=== PATIENT | male | born 1945 | race African-American/Black ===

== ENCOUNTER 2018-12-04 23:28 | Inpatient (IN) | payer MEDICARE ==
[~2018-12-04] VITALS: Ht 182.9 cm; Wt 44.5 kg
[2018-12-05 00:11] LABS: BASO # 0.1 x10^3/uL (0.0-0.2); BASO % 1 % (0-3); EOS # 0.1 x10^3/uL (0.0-0.7); EOS % 1 % (0-3); HEMATOCRIT 29.8 % (39.0-53.0); HEMOGLOBIN 9.3 g/dL (13.0-17.5); LYMPH # 1.1 x10^3/uL (1.0-4.8); LYMPH % 14 % (24-48); MEAN CORPUSCULAR HEMOGLOBIN 23 pg (25-35); MEAN CORPUSCULAR HGB CONC 31 g/dL (31-37); MEAN CORPUSCULAR VOLUME 73 fL (79-100); MONO # 0.7 x10^3/uL (0.0-1.1); MONO % 8 % (0-9); NEUT # 6.2 x10^3/uL (1.8-7.7); NEUT % 76 % (31-73); PLATELET COUNT 645 x10^3/uL (140-400); RED BLOOD COUNT 4.07 x10^6/uL (4.30-5.70); RED CELL DISTRIBUTION WIDTH 16.2 % (11.5-14.5); WHITE BLOOD COUNT 8.2 x10^3/uL (4.0-11.0)
[2018-12-05 00:17] LABS: BLOOD UREA NITROGEN 20 mg/dL (8-26); BUN/CREATININE RATIO 20 (6-20); CALCIUM 9.5 mg/dL (8.5-10.1); CARBON DIOXIDE 38 mmol/L (21-32); GFR 89.1; GLUCOSE 97 mg/dL (70-99); POTASSIUM 3.8 mmol/L (3.5-5.1)
[2018-12-05 00:23] LABS: ALBUMIN 2.1 g/dL (3.4-5.0); ALBUMIN/GLOBULIN RATIO 0.4 (1.0-1.7); ALK PHOS 83 U/L (46-116); ALT (SGPT) 20 U/L (16-63); AST (SGOT) 17 U/L (15-37); TOTAL BILIRUBIN 0.1 mg/dL (0.2-1.0); TOTAL PROTEIN 6.9 g/dL (6.4-8.2)
[2018-12-05 00:25] LABS: CHLORIDE 99 mmol/L (98-107); SODIUM 135 mmol/L (136-145)
[2018-12-05 00:37] LABS: PLT ESTIMATE INCREASED (ADEQUATE)
[2018-12-05 00:40] LABS: ANISOCYTOSIS SLIGHT; HYPOCHROMIA MOD; MICROCYTOSIS SLIGHT; POIKILOCYTOSIS SLIGHT; TEAR DROP CELLS OCC
[2018-12-05 00:41] LABS: SCHISTOCYTES OCC; TARGET CELLS OCC
[2018-12-05 00:42] LABS: BILIRUBIN,URINE NEGATIVE (NEG); CLARITY,URINE CLOUDY; COLOR,URINE YELLOW; NITRITE,URINE NEGATIVE (NEG); PROTEIN,URINE 100 mg/dL (NEG-TRACE); UROBILINOGEN,URINE 0.2 mg/dL (0.2 mg/dL)
[2018-12-05 00:42] LABS: OVALOCYTES FEW
--- NOTE | 2018-12-05 00:49 | RAD ---
EXAM: CT HEAD WITHOUT CONTRAST. HISTORY: Altered mental status. TECHNIQUE: Computed tomography of the head was performed without intravenous contrast. COMPARISON: None. FINDINGS: There is no intracranial hemorrhage. Maciel-white differentiation is preserved. The ventricles are normal in size and position. The visualized paranasal sinuses appear clear. There are changes of bilateral cataract surgery. The temporal bones are unremarkable. The calvarium reveals no suspicious lesions. IMPRESSION: 1. No acute intracranial findings. *One or more of the following individualized dose reduction techniques were utilized for this examination: 1. Automated exposure control. 2. Adjustment of the mA and/or kV according to patient size. 3. Use of iterative reconstruction technique. Electronically signed by: Rogelio Robledo MD (12/05/2018 12:46 AM) [facility]
--- NOTE | 2018-12-05 00:53 | PHYS DOC ---
Past Medical History Past Medical History: Schizophrenia Additional Past Medical Histor: PTSD, BORDERLINE PERSONALITY, ANEMIA, ACUTE RESP FAILURE, Past Surgical History: No Surgical History Alcohol Use: None Drug Use: None Adult General Chief Complaint Chief Complaint: ALTERED MENTAL STATUS HPI HPI 73-year-old male presents to the emergency department from nursing facility with complaints of altered mental status. As recently admitted to this facility approximately 2 days ago. Nursing states that approximately around 10 PM patient had decreased O2, unresponsive. EMS was called. Patient generally history of schizophrenia, PTSD, hypertension, hyponatremia. He is well has a superpubic catheter placement and a left traumatic lower extremity amputation patient will respond to painful stimuli. He is unable provide any information regarding his care or answer any questions regarding reviews of systems. All other ROS negative unless documented in HPI Review of Systems Review of Systems See Above Current Medications Current Medications Current Medications Medications (Trade) Dose Ordered Sig/Paige Start Time Stop Time Status Last Admin Dose Admin Ceftriaxone Sodium (Rocephin) 1 gm 1X ONCE 12/05/18 01:30 12/05/18 01:31 DC 12/05/18 01:30 1 GM Allergies Allergies Allergies Coded Allergies Type Severity Reaction Last Updated Verified chlorpromazine Allergy Unknown 12/05/18 Yes haloperidol Allergy Unknown 12/05/18 Yes trazodone Allergy Unknown 12/05/18 Yes Physical Exam Physical Exam See Above Constitutional: AMS, will arouse to painful stimulie HENT: Normocephalic, atraumatic, bilateral external ears normal, oropharynx moist, no oral exudates, nose normal. [] Eyes: EOMI, conjunctiva normal, no discharge. [] Cardiovascular:Heart rate regular rhythm, no murmur [] Lungs & Thorax: Bilateral breath sounds clear to auscultation [] Abdomen: Bowel sounds normal, soft, no tenderness, no masses, no pulsatile masses. [] Skin: Warm, dry, no erythema, no rash. [] Back: No tenderness, no CVA tenderness. [] Extremities: left traumatic amputation, right lower ext with edema Neurologic: Alert and oriented X 3, no focal deficits noted. [] Psychologic: history of schizophrenia Current Patient Data Vital Signs Vital Signs Date Time Temp Pulse Resp B/P (MAP) Pulse Ox O2 Delivery O2 Flow Rate FiO2 12/05/18 01:29 75 12/05/18 01:14 100 12/04/18 23:28 96.1 14 104/68 (80) BiPAP/CPAP 4.0 96.1 Lab Values Laboratory Tests Test 12/05/18 00:00 12/05/18 00:35 12/05/18 00:40 White Blood Count 8.2 x10^3/uL (4.0-11.0) Red Blood Count 4.07 x10^6/uL (4.30-5.70) L Hemoglobin 9.3 g/dL (13.0-17.5) L Hematocrit 29.8 % (39.0-53.0) L Mean Corpuscular Volume 73 fL (79-100) L Mean Corpuscular Hemoglobin 23 pg (25-35) L Mean Corpuscular Hemoglobin Concent 31 g/dL (31-37) Red Cell Distribution Width 16.2 % (11.5-14.5) H Platelet Count 645 x10^3/uL (140-400) H Neutrophils (%) (Auto) 76 % (31-73) H Lymphocytes (%) (Auto) 14 % (24-48) L Monocytes (%) (Auto) 8 % (0-9) Eosinophils (%) (Auto) 1 % (0-3) Basophils (%) (Auto) 1 % (0-3) Neutrophils # (Auto) 6.2 x10^3/uL (1.8-7.7) Lymphocytes # (Auto) 1.1 x10^3/uL (1.0-4.8) Monocytes # (Auto) 0.7 x10^3/uL (0.0-1.1) Eosinophils # (Auto) 0.1 x10^3/uL (0.0-0.7) Basophils # (Auto) 0.1 x10^3/uL (0.0-0.2) Platelet Estimate Increased (ADEQUATE) Hypochromasia Mod Poikilocytosis Slight Anisocytosis Slight Microcytosis Slight Target Cells Occ Tear Drop Cells Occ Ovalocytes Few Schistocytes Occ Sodium Level 135 mmol/L (136-145) L Potassium Level 3.8 mmol/L (3.5-5.1) Chloride Level 99 mmol/L (98-107) Carbon Dioxide Level 38 mmol/L (21-32) H Anion Gap (6-14) Blood Urea Nitrogen 20 mg/dL (8-26) Creatinine 1.0 mg/dL (0.7-1.3) Estimated GFR (Cockcroft-Gault) 89.1 BUN/Creatinine Ratio 20 (6-20) Glucose Level 97 mg/dL (70-99) Lactic Acid Level 0.4 mmol/L (0.4-2.0) Calcium Level 9.5 mg/dL (8.5-10.1) Total Bilirubin 0.1 mg/dL (0.2-1.0) L Aspartate Amino Transferase (AST) 17 U/L (15-37) Alanine Aminotransferase (ALT) 20 U/L (16-63) Alkaline Phosphatase 83 U/L (46-116) WP-Fhq-R-Type Natriuretic Peptide 3113 pg/mL (0-124) H Total Protein 6.9 g/dL (6.4-8.2) Albumin 2.1 g/dL (3.4-5.0) L Albumin/Globulin Ratio 0.4 (1.0-1.7) L Urine Collection Type Suprapubic Urine Color Yellow Urine Clarity Cloudy Urine pH 6.0 Urine Specific [place] 1.020 Urine Protein 100 mg/dL (NEG-TRACE) Urine Glucose (UA) Negative mg/dL (NEG) Urine Ketones (Stick) Negative mg/dL (NEG) Urine Blood Moderate (NEG) Urine Nitrite Negative (NEG) Urine Bilirubin Negative (NEG) Urine Urobilinogen Dipstick 0.2 mg/dL (0.2 mg/dL) Urine Leukocyte Esterase Moderate (NEG) Urine RBC 11-20 /HPF (0-2) Urine WBC 20-40 /HPF (0-4) Urine Squamous Epithelial Cells None /LPF Urine Amorphous Sediment Present /HPF Urine Bacteria Few /HPF (0-FEW) Urine Hyaline Casts Few /HPF Urine Granular Casts Few /HPF Urine Mucus Marked /LPF O2 Saturation 99 % (92-99) Arterial Blood pH 7.24 (7.35-7.45) L Arterial Blood pCO2 at Patient Temp 92 mmHg (35-46) *H Arterial Blood pO2 at Patient Temp 273 mmHg (65-108) H Arterial Blood HCO3 39 mmol/L (21-28) H Arterial Blood Base Excess 9 mmol/L (-3-3) H Laboratory Tests 12/05/18 00:00 Laboratory Tests 12/05/18 00:00 EKG EKG [] Radiology/Procedures Radiology/Procedures [facility] [address] [place] [address] IMAGING REPORT Signed PATIENT: JOSE MOODY ACCOUNT: [id number] : 1945 LOCATION: ER AGE: 73 SEX: M EXAM STATUS: REG ER ORD. PHYSICIAN: JOVANNY RIVERA MD REASON: ams PROCEDURE: CT HEAD WO CONTRAST EXAM: CT HEAD WITHOUT CONTRAST. HISTORY: Altered mental status. TECHNIQUE: Computed tomography of the head was performed without intravenous contrast. COMPARISON: None. FINDINGS: There is no intracranial hemorrhage. Maciel-white differentiation is preserved. The ventricles are normal in size and position. The visualized paranasal sinuses appear clear. There are changes of bilateral cataract surgery. The temporal bones are unremarkable. The calvarium reveals no suspicious lesions. IMPRESSION: 1. No acute intracranial findings. *One or more of the following individualized dose reduction techniques were utilized for this examination: 1. Automated exposure control. 2. Adjustment of the mA and/or kV according to patient size. 3. Use of iterative reconstruction technique. Electronically signed by: Rogelio Robledo MD (12/05/2018 12:46 AM) [facility] DICTATED and SIGNED BY: RICKY ROBLEDO MD DATE: 12/05/1845 [] Chest Xray - wet read 0220 patchy consolidation appreciated bilaterally Course & Med Decision Making Course & Med Decision Making Pertinent Labs and Imaging studies reviewed. (See chart for details) []73-year-old male presents to the emergency department from nursing facility with complaints of altered mental status. As recently admitted to this facility approximately 2 days ago. Nursing states that approximately around 10 PM patient had decreased O2, unresponsive. EMS was called. Patient generally history of schizophrenia, PTSD, hypertension, hyponatremia. He is well has a suprapubic catheter placement and a left traumatic lower extremity amputation patient will respond to painful stimuli. He is unable provide any information regarding his care or answer any questions regarding reviews of systems. Labs/Imaging obtained. ABG with hypercapneic resp failure - PCO2 92 BIPAP initiated however low volumes. Repeat ABG - 0200 7.32/71/80/36 - continued on BIPAP Xray reviewed with evidence or patchy consolidation bilaterally will check BNP (3000) - lasix 40mg given IV x 1, will add daily order for lasix. Abx initiated in ER with cultures obtained. Dragon Disclaimer Dragon Disclaimer This electronic medical record was generated, in whole or in part, using a voice recognition dictation system. Departure Departure Impression: Primary Impression: Acute metabolic encephalopathy Additional Impressions: Acute hypercapnic respiratory failure UTI (urinary tract infection) CHF (congestive heart failure) Abnormal chest xray Admitting Physician: LYNNE Condition: STABLE Referrals: NO PCP (PCP) Critical Care Time Critical care time was 45 minutes exclusive of procedures. Problem Qualifiers Additional Impressions: UTI (urinary tract infection) Urinary tract infection type: site unspecified Hematuria presence: without hematuria Qualified Codes: N39.0 - Urinary tract infection, site not specified CHF (congestive heart failure) Heart failure type: unspecified Heart failure chronicity: unspecified Qualified Codes: I50.9 - Heart failure, unspecified JOVANNY RIVERA MD Dec 05, 2018 00:53
[2018-12-05 00:54] LABS: AMORPHOUS SEDIMENT,UR PRESENT /HPF; BACTERIA,URINE FEW /HPF (0-FEW); GRANULAR CASTS,URINE FEW /HPF; HYALINE CASTS, URINE FEW /HPF; WBC,URINE 20-40 /HPF (0-4)
[2018-12-05 00:58] LABS: BASE EXCESS ABG 9 mmol/L (-3-3); HCO3 ABG 39 mmol/L (21-28); PO2 ABG 273 mmHg (65-108); SAT O2 ABG 99 % (92-99)
[2018-12-05] MEDS ORDERED: cefTRIAXone IV Push 1 GM VIAL. IVP ONE (01:30)
[2018-12-05 01:38] LABS: PCO2 ABG 92 mmHg (35-46)
[2018-12-05 02:13] LABS: BASE EXCESS ABG 9 mmol/L (-3-3); HCO3 ABG 37 mmol/L (21-28); PO2 ABG 81 mmHg (65-108); SAT O2 ABG 95 % (92-99)
[2018-12-05] MEDS ORDERED: FUROSEMIDE 40 MG/4 ML VIAL. IVP ONE (02:30)
[2018-12-05] MEDS ORDERED: VANCOMYCIN 1.25 GM in IV NORMAL SALINE 250ML 250 ML IV ONE (03:00)
[2018-12-05 03:10] VITALS: BP 116/80
[2018-12-05] MEDS ORDERED: ONDANSETRON PF 4 MG/2 ML VIAL. IV PRN (03:15)
[2018-12-05] MEDS ORDERED: ACETAMINOPHEN 325 MG TABLET. PO PRN (03:15)
[2018-12-05 03:16] LABS: FIO2 ABG 30; PCO2 ABG 72 mmHg (35-46)
--- NOTE | 2018-12-05 03:48 | RAD ---
EXAM: CHEST ONE VIEW. HISTORY: Altered mental status. COMPARISON: None. FINDINGS: A frontal view of the chest is obtained. There are interstitial and airspace opacities in both apices and right base. There is no pneumothorax or pleural effusion. Prominence of the aorticopulmonary window may reflect pulmonary arterial enlargement but this is unclear. The heart is not enlarged. Rotator cuff arthropathy is noted bilaterally. IMPRESSION: 1. Biapical and right basilar opacities may indicate infiltrates superimposed on chronic interstitial scarring. Correlate for a known diagnosis. 2. Enlargement of the aorticopulmonary window may reflect pulmonary arterial hypertension or adenopathy. CT of the chest with contrast could further evaluate if the diagnosis remains unclear. Electronically signed by: Rogelio Robledo MD (12/05/2018 3:46 AM) [facility]
[2018-12-05 04:20] VITALS: BP 116/80
[2018-12-05] MEDS ORDERED: FERR325T14 PO (04:30)
[2018-12-05] MEDS ORDERED: BENZ-8 PO (04:30)
[2018-12-05] MEDS ORDERED: PANT20TA2 PO (04:30)
[2018-12-05] MEDS ORDERED: ALBU2.5V5 NEB (04:30)
[2018-12-05] MEDS ORDERED: LISI-334 PO (04:30)
[2018-12-05] MEDS ORDERED: CARV25TA2 PO (04:30)
[2018-12-05] MEDS ORDERED: MULT1TAB52 PO (04:30)
[2018-12-05] MEDS ORDERED: ZIPR80CA2 PO (04:30)
[2018-12-05] MEDS ORDERED: AMOX1TAB11 PO (04:30)
[2018-12-05] MEDS ORDERED: LOXA5CAP PO (04:30)
[2018-12-05] MEDS ORDERED: ENOX40DI SQ (04:30)
[2018-12-05] MEDS ORDERED: TRIA15CR2 TP (04:30)
[2018-12-05] MEDS ORDERED: POLY2500 PO (04:30)
[2018-12-05] MEDS ORDERED: LOXA10CA PO (04:30)
[2018-12-05] MEDS: VANCOMYCIN PER PHARMACY MC PRN (04:56)
--- NOTE | 2018-12-05 05:00 | NUR ---
Pharmacy Vancomycin Dosing Note S:Consulted to monitor and dose vancomycin started 12/05/18. O:JOSE MOODY is a 73 year old M with UTI ACUTE HYPERCAPNIC RESPIRATORY FAILURE . Height: 6 feet, 0 inches Weight: 45.317398 kg [place] Body Weight: 70.70 Adjusted Body Weight: 64.18 Dosing Weight: Actual Other Antibiotics: LEVOFLOXACIN 750MG IV X1 IN ER (12/05) LABS: Last BUN: 20 Last Creatinine: 1.0 Creatinine Clearance: 52 mL/min Last WBC: 8.2 Last Procalcitonin: Tmax (past 24 hours): Microbiology: I/O: Drug Levels: Last level: on at Last dose given at Vancomycin Dosing: Loading Dose: 1250 mg x1 12/05/18 0530 Dosing Weight: Actual Target Trough: 15-20 A: Based on: Actual Wt and CrCl P: 1. 12/06/18 0530 Vancomycin 1000 mg IV q24h 2. Follow up Trough level on 12/07/18 at 0500 3. Pharmacy will continue to monitor, follow and adjust therapy as needed. CAROL FINK RPH, 12/05/18 0500 Signed: 12/05/18 at 0502 by CAROL FINK RPH PHA
--- NOTE | 2018-12-05 05:16 | NUR ---
pt arrived to room 204 per cart pt assisted to bed with 4 assist, Vs obtained and stable bipap and monitor placed on pt,, Assessment completed pt is a poor historian history taken from [facility] documents will resume care and continue to monitor pt. bed alarm set and mitts in place due to pt puling at bipap mask and iv.call light in reach, will monitor pt.
--- NOTE | 2018-12-05 05:29 | NUR ---
pt refusing bipap pulling it off o2 @2l placed on pt.
[2018-12-05 07:12] VITALS: BP 104/64
[2018-12-05] MEDS: IPRATRPIUM/ALBUTEROL 0.5/2.5MG 3 ML NEBU. NEB SCH ×5 (07:38→20:00)
[2018-12-05] MEDS: FUROSEMIDE 40 MG/4 ML VIAL. IVP SCH (09:00)
[2018-12-05 10:04] VITALS: BP 102/72
[2018-12-05] MEDS ORDERED: LOXAPINE SUCCINATE 5 MG CAPSULE PO PRN (10:15)
--- NOTE | 2018-12-05 10:33 | PDOC1 ---
History and Physical Date of Admission Date of Admission DATE: 12/05/18 TIME: 10:26 History of Present Illness History of Present Illness Serge Grissom isa 73-year-old male admit last night for confusion, unresponsive. recent admit here for similar Nursing states that approximately around 10 PM patient had decreased O2, unresponsive. EMS was called. Patient generally history of schizophrenia, PTSD, hypertension, hyponatremia. has a superpubic catheter placement he feels well this AM, and is asking how soon he can go home Past Medical History Cardiovascular: HTN Pulmonary: Asthma CENTRAL NERVOUS SYSTEM: Dementia GI: No pertinent hx Psych: Depression, Schizophrenia Renal/: No pertinent hx Past Surgical History Past Surgical History: Other (aka) Social History Smoke: Quit ALCOHOL: none Current Problem List Problem List Problems Medical Problems: (1) Abnormal chest xray Status: Acute (2) Acute metabolic encephalopathy Status: Acute (3) CHF (congestive heart failure) Status: Acute Current Medications Current Medications Current Medications Ceftriaxone Sodium (Rocephin) 1 gm 1X ONCE IVP Last administered on 12/05/18at 01:30; Start 12/05/18 at 01:30; Stop 12/05/18 at 01:31; Status DC Levofloxacin/ Dextrose 150 ml @ 100 mls/hr 1X ONCE IV Last administered on 12/05/18at 02:50; Start 12/05/18 at 02:30; Stop 12/05/18 at 03:59; Status DC Vancomycin HCl (Vanco Per Pharmacy) 1 each PRN DAILY PRN MC SEE COMMENTS Last administered on 12/05/18at 04:56; Start 12/05/18 at 02:30 Furosemide (Lasix) 40 mg 1X ONCE IVP Last administered on 12/05/18at 02:50; Start 12/05/18 at 02:30; Stop 12/05/18 at 02:31; Status DC Vancomycin HCl 1.25 gm/Sodium Chloride 250 ml @ 166.667 mls/hr 1X ONCE IV Last administered on 12/05/18at 05:27; Start 12/05/18 at 03:00; Stop 12/05/18 at 04:29; Status DC Ondansetron HCl (Zofran) 4 mg PRN Q8HRS PRN IV NAUSEA/VOMITING; Start 12/05/18 at 03:15; Stop 12/06/18 at 03:14 Acetaminophen (Tylenol) 650 mg PRN Q4HRS PRN PO FEVER; Start 12/05/18 at 03:15; Stop 12/06/18 at 03:14 Albuterol/ Ipratropium (Duoneb) 3 ml RTQID NEB Last administered on 12/05/18at 07:38; Start 12/05/18 at 08:00; Stop 12/06/18 at 07:59 Furosemide (Lasix) 40 mg DAILY IVP Last administered on 12/05/18at 09:00; Start 12/05/18 at 09:00 Vancomycin HCl 1 gm/Sodium Chloride 250 ml @ 250 mls/hr Q24H IV ; Start 12/06/18 at 05:30 Vancomycin HCl (Vancomycin Trough Level) 1 each 1X ONCE MC ; Start 12/07/18 at 05:00; Stop 12/07/18 at 05:01 Active Scripts Active Reported Albuterol Sulfate Neb Soln (Albuterol Sulfate) 2.5 Mg/3 Ml Vial.neb 2.5 Mg NEB QID Geodon (Ziprasidone Hcl) 80 Mg Capsule 1 Cap PO BID Triamcinolone Acetonide 0.025% Cream (Triamcinolone Acetonide) 15 Gm Cream..g. 1 Gemini TP PRN BID PRN APPLY TO RLE TOPICALLY NEEDED AND APPLY COMPRESSION WRAP Polyethylene Glycol 3350 2,500 Gm Powder 17 Gm PO PRN Q12HRS PRN Protonix (Pantoprazole Sodium) 20 Mg Tablet.dr 40 Mg PO DAILY Multivitamins (Multivitamin) 1 Each Tablet 1 Tab PO DAILY Loxapine (Loxapine Succinate) 5 Mg Capsule 5 Mg PO PRN Q12HRS PRN Loxapine (Loxapine Succinate) 10 Mg Capsule 10 Mg PO HS GIVE 3 CAPSULE BY MOUTH AT BEDTIME FOR AGITATION Lisinopril 20 Mg Tablet 20 Mg PO DAILY HOLD FOR SBP < 110 Ferrous Sulfate 325 Mg Tablet 1 Tab PO DAILY Lovenox (Enoxaparin Sodium) 40 Mg/0.4 Ml Disp.syrin 40 Mg SQ DAILY Carvedilol 25 Mg Tablet 25 Mg PO BIDWMEALS hold for SBP < 110 and pulse < 40 Benzonatate 100 Mg Capsule 1 Cap PO TID Amox Tr-K Clv 875-125 Mg Tab (Amoxicillin/Potassium Clav) 1 Each Tablet 1 Tab PO BID 4 Days Allergies Allergies: Coded Allergies: chlorpromazine (Verified Allergy, Unknown, 12/05/18) haloperidol (Verified Allergy, Unknown, 12/05/18) trazodone (Verified Allergy, Unknown, 12/05/18) ROS Review of System " i lost my voice" General: YES: Chills, Fatigue, Malaise PSYCHOLOGICAL ROS: No: Anxiety, Behavioral Disorder, Concentration difficultie, Decreased libido, Depression, Disorientation, Hallucinations, Hostility, Irritablity, Memory difficulties, Mood Swings, Obsessive thoughts, Physical abuse, Sexual abuse, Sleep disturbances, Suicidal ideation, Other Eyes: No Blurry vision, No Decreased vision, No Double vision, No Dry eyes, No Excessive tearing, No Eye Pain, No Itchy Eyes, No Loss of vision, No Photophobia, No Scotomata, No Uses contacts, No Uses glasses, No Other HEENT: No: Heacaches, Visual Changes, Hearing change, Nasal congestion, Nasal discharge, Oral lesions, Sinus pain, Sore Throat, Epistaxis, Sneezing, Snoring, Tinnitus, Vertigo, Vocal changes, Other Respiratory: No: Cough, Hemoptysis, Orthopnea, Pleuritic Pain, Shortness of breath, SOB with excertion, Sputum Changes, Stridor, Tachypnea, Wheezing, Other Cardiovascular: No Chest Pain, No Palpitations, No Orthopnea, No Paroxysmal Noc. Dyspnea, No Edema, No Lt Headedness, No Other Gastrointestinal: No Nausea, No Vomiting, No Abdominal Pain, No Diarrhea, No Constipation, No Melena, No Hematochezia, No Other Genitourinary: No Dysuria, No Frequency, No Incontinence, No Hematuria, No Retention, No Discharge, No Urgency, No Pain, No Flank Pain, No Other, No , No , No , No , No , No , No Musculoskeletal: Yes Muscular Weakness; No Gait Disturbance, No Joint Pain, No Joint Stiffness, No Joint Swelling, No Muscle Pain, No Pain In:, No Swelling In:, No Other Neurological: No Behavorial Changes, No Bowel/Bladder ControlChng, No Confusion, No Dizziness, No Gait Disturbance, No Headaches, No Impaired Coord/balance, No Memory Loss, No Numbness/Tingling, No Seizures, No Speech Problems, No Tremors, No Visual Changes, No Weakness, No Other Skin: No Dry Skin, No Eczema, No Hair Changes, No Lumps, No Mole Changes, No Mottling, No Nail Changes, No Pruritus, No Rash, No Skin Lesion Changes, No Other, No Acne Physical Exam Physical Exam malodorous, disheveled General: Alert, Oriented X3, Cooperative, No acute distress HEENT: Mucous membr. moist/pink Lungs: Clear to auscultation Heart: no gallops Abdomen: Normal bowel sounds, Soft Extremities: No cyanosis, No edema, Normal pulses, Other (left AKA) Skin: No breakdown Neuro: Normal tone, Sensation intact Psych/Mental Status: Mood NL Vitals Vitals Vital Signs Date Time Temp Pulse Resp B/P (MAP) Pulse Ox O2 Delivery O2 Flow Rate FiO2 12/05/18 10:04 97.7 85 20 102/72 (82) 100 Nasal Cannula 97.7 12/05/18 07:40 2.0 Labs Labs Laboratory Tests Test 12/05/18 00:00 12/05/18 00:35 12/05/18 00:40 12/05/18 01:25 White Blood Count 8.2 x10^3/uL (4.0-11.0) Red Blood Count 4.07 x10^6/uL (4.30-5.70) Hemoglobin 9.3 g/dL (13.0-17.5) Hematocrit 29.8 % (39.0-53.0) Mean Corpuscular Volume 73 fL (79-100) Mean Corpuscular Hemoglobin 23 pg (25-35) Mean Corpuscular Hemoglobin Concent 31 g/dL (31-37) Red Cell Distribution Width 16.2 % (11.5-14.5) Platelet Count 645 x10^3/uL (140-400) Neutrophils (%) (Auto) 76 % (31-73) Lymphocytes (%) (Auto) 14 % (24-48) Monocytes (%) (Auto) 8 % (0-9) Eosinophils (%) (Auto) 1 % (0-3) Basophils (%) (Auto) 1 % (0-3) Neutrophils # (Auto) 6.2 x10^3/uL (1.8-7.7) Lymphocytes # (Auto) 1.1 x10^3/uL (1.0-4.8) Monocytes # (Auto) 0.7 x10^3/uL (0.0-1.1) Eosinophils # (Auto) 0.1 x10^3/uL (0.0-0.7) Basophils # (Auto) 0.1 x10^3/uL (0.0-0.2) Platelet Estimate Increased (ADEQUATE) Hypochromasia Mod Poikilocytosis Slight Anisocytosis Slight Microcytosis Slight Target Cells Occ Tear Drop Cells Occ Ovalocytes Few Schistocytes Occ Sodium Level 135 mmol/L (136-145) Potassium Level 3.8 mmol/L (3.5-5.1) Chloride Level 99 mmol/L (98-107) Carbon Dioxide Level 38 mmol/L (21-32) Anion Gap (6-14) Blood Urea Nitrogen 20 mg/dL (8-26) Creatinine 1.0 mg/dL (0.7-1.3) Estimated GFR (Cockcroft-Gault) 89.1 BUN/Creatinine Ratio 20 (6-20) Glucose Level 97 mg/dL (70-99) Lactic Acid Level 0.4 mmol/L (0.4-2.0) Calcium Level 9.5 mg/dL (8.5-10.1) Total Bilirubin 0.1 mg/dL (0.2-1.0) Aspartate Amino Transf (AST/SGOT) 17 U/L (15-37) Alanine Aminotransferase (ALT/SGPT) 20 U/L (16-63) Alkaline Phosphatase 83 U/L (46-116) XM-Dsi-O-Type Natriuretic Peptide 3113 pg/mL (0-124) Total Protein 6.9 g/dL (6.4-8.2) Albumin 2.1 g/dL (3.4-5.0) Albumin/Globulin Ratio 0.4 (1.0-1.7) Urine Collection Type Suprapubic Urine Color Yellow Urine Clarity Cloudy Urine pH 6.0 Urine Specific [place] 1.020 Urine Protein 100 mg/dL (NEG-TRACE) Urine Glucose (UA) Negative mg/dL (NEG) Urine Ketones (Stick) Negative mg/dL (NEG) Urine Blood Moderate (NEG) Urine Nitrite Negative (NEG) Urine Bilirubin Negative (NEG) Urine Urobilinogen Dipstick 0.2 mg/dL (0.2 mg/dL) Urine Leukocyte Esterase Moderate (NEG) Urine RBC 11-20 /HPF (0-2) Urine WBC 20-40 /HPF (0-4) Urine Squamous Epithelial Cells None /LPF Urine Amorphous Sediment Present /HPF Urine Bacteria Few /HPF (0-FEW) Urine Hyaline Casts Few /HPF Urine Granular Casts Few /HPF Urine Mucus Marked /LPF O2 Saturation 99 % (92-99) 95 % (92-99) Arterial Blood pH 7.24 (7.35-7.45) 7.33 (7.35-7.45) Arterial Blood pCO2 at Patient Temp 92 mmHg (35-46) 72 mmHg (35-46) Arterial Blood pO2 at Patient Temp 273 mmHg (65-108) 81 mmHg (65-108) Arterial Blood HCO3 39 mmol/L (21-28) 37 mmol/L (21-28) Arterial Blood Base Excess 9 mmol/L (-3-3) 9 mmol/L (-3-3) FiO2 30 Test 12/05/18 08:14 Procalcitonin < 0.10 ng/mL (0.00-0.10) Laboratory Tests Test 12/05/18 00:00 12/05/18 00:35 12/05/18 00:40 12/05/18 01:25 White Blood Count 8.2 x10^3/uL (4.0-11.0) Red Blood Count 4.07 x10^6/uL (4.30-5.70) Hemoglobin 9.3 g/dL (13.0-17.5) Hematocrit 29.8 % (39.0-53.0) Mean Corpuscular Volume 73 fL (79-100) Mean Corpuscular Hemoglobin 23 pg (25-35) Mean Corpuscular Hemoglobin Concent 31 g/dL (31-37) Red Cell Distribution Width 16.2 % (11.5-14.5) Platelet Count 645 x10^3/uL (140-400) Neutrophils (%) (Auto) 76 % (31-73) Lymphocytes (%) (Auto) 14 % (24-48) Monocytes (%) (Auto) 8 % (0-9) Eosinophils (%) (Auto) 1 % (0-3) Basophils (%) (Auto) 1 % (0-3) Neutrophils # (Auto) 6.2 x10^3/uL (1.8-7.7) Lymphocytes # (Auto) 1.1 x10^3/uL (1.0-4.8) Monocytes # (Auto) 0.7 x10^3/uL (0.0-1.1) Eosinophils # (Auto) 0.1 x10^3/uL (0.0-0.7) Basophils # (Auto) 0.1 x10^3/uL (0.0-0.2) Platelet Estimate Increased (ADEQUATE) Hypochromasia Mod Poikilocytosis Slight Anisocytosis Slight Microcytosis Slight Target Cells Occ Tear Drop Cells Occ Ovalocytes Few Schistocytes Occ Sodium Level 135 mmol/L (136-145) Potassium Level 3.8 mmol/L (3.5-5.1) Chloride Level 99 mmol/L (98-107) Carbon Dioxide Level 38 mmol/L (21-32) Anion Gap (6-14) Blood Urea Nitrogen 20 mg/dL (8-26) Creatinine 1.0 mg/dL (0.7-1.3) Estimated GFR (Cockcroft-Gault) 89.1 BUN/Creatinine Ratio 20 (6-20) Glucose Level 97 mg/dL (70-99) Lactic Acid Level 0.4 mmol/L (0.4-2.0) Calcium Level 9.5 mg/dL (8.5-10.1) Total Bilirubin 0.1 mg/dL (0.2-1.0) Aspartate Amino Transf (AST/SGOT) 17 U/L (15-37) Alanine Aminotransferase (ALT/SGPT) 20 U/L (16-63) Alkaline Phosphatase 83 U/L (46-116) PV-Xxy-Z-Type Natriuretic Peptide 3113 pg/mL (0-124) Total Protein 6.9 g/dL (6.4-8.2) Albumin 2.1 g/dL (3.4-5.0) Albumin/Globulin Ratio 0.4 (1.0-1.7) Urine Collection Type Suprapubic Urine Color Yellow Urine Clarity Cloudy Urine pH 6.0 Urine Specific [place] 1.020 Urine Protein 100 mg/dL (NEG-TRACE) Urine Glucose (UA) Negative mg/dL (NEG) Urine Ketones (Stick) Negative mg/dL (NEG) Urine Blood Moderate (NEG) Urine Nitrite Negative (NEG) Urine Bilirubin Negative (NEG) Urine Urobilinogen Dipstick 0.2 mg/dL (0.2 mg/dL) Urine Leukocyte Esterase Moderate (NEG) Urine RBC 11-20 /HPF (0-2) Urine WBC 20-40 /HPF (0-4) Urine Squamous Epithelial Cells None /LPF Urine Amorphous Sediment Present /HPF Urine Bacteria Few /HPF (0-FEW) Urine Hyaline Casts Few /HPF Urine Granular Casts Few /HPF Urine Mucus Marked /LPF O2 Saturation 99 % (92-99) 95 % (92-99) Arterial Blood pH 7.24 (7.35-7.45) 7.33 (7.35-7.45) Arterial Blood pCO2 at Patient Temp 92 mmHg (35-46) 72 mmHg (35-46) Arterial Blood pO2 at Patient Temp 273 mmHg (65-108) 81 mmHg (65-108) Arterial Blood HCO3 39 mmol/L (21-28) 37 mmol/L (21-28) Arterial Blood Base Excess 9 mmol/L (-3-3) 9 mmol/L (-3-3) FiO2 30 Test 12/05/18 08:14 Procalcitonin < 0.10 ng/mL (0.00-0.10) VTE Prophylaxis Ordered VTE Prophylaxis Devices: Yes VTE Pharmacological Prophylaxi: No Assessment/Plan Assessment/Plan acute mental status change, acute encephalopathy UTI, rpcehin schizophrenia severe malnutrition weakness and debility, will need PT and OT eval s/p left AKA amputation [facility], will try to return soon, blood cx pending, pt JUAN C Narayanan MD Dec 05, 2018 10:32
[2018-12-05] MEDS ORDERED: PANTOPRAZOLE 40 MG TABLET.DR. PO SCH (11:00)
[2018-12-05] MEDS: MULTIVITAMIN with MINERAL TABLET. PO SCH (11:14)
[2018-12-05] MEDS: ENOXAPARIN 40 MG/0.4 ML SYRINGE. SQ SCH (11:14)
[2018-12-05] MEDS: LISINOPRIL 20 MG TABLET PO SCH (11:14)
[2018-12-05] MEDS: FERROUS SULFATE 325 MG TABLET. PO SCH (11:14)
[2018-12-05] MEDS: BENZONATATE 100 MG CAPSULE. PO SCH ×2 (11:15→22:09)
[2018-12-05] MEDS: CARVEDILOL 12.5 MG TABLET. PO SCH ×2 (11:15→16:45)
[2018-12-05] MEDS: ZIPRASIDONE 20 MG CAPSULE PO SCH ×2 (11:28→22:08)
[2018-12-05] MEDS: ALBUTEROL SULFATE 2.5 MG/3 ML NEBU. NEB SCH ×4 (11:41→20:11)
--- NOTE | 2018-12-05 11:51 | NUR ---
SS following for discharge planning. SS reviewed pt chart. Pt is from home with spouse and is currently requiring oxygen. PT/OT ordered. SS will continue to follow for discharge planning.
[2018-12-05 15:00] VITALS: BP 71/44
--- NOTE | 2018-12-05 15:57 | NUR ---
Wound Care: Wound care consult for coccyx wound. Coccyx with a stage 3 PU, wound cleansed and measured, xeroform and foam applied. No other wounds noted on back side, pt with left AKA and refused to have R foot assessed. WC cushio and P500 bed ordered, pt educated on importance of turning while in bed. Pt left sitting in chair ready for dinner. WC to f/u on 12/12.
[2018-12-05] MEDS: ASCORBIC ACID 500 MG TABLET PO SCH (16:44)
[2018-12-05 19:00] VITALS: BP 102/73
[2018-12-05] MEDS: LOXAPINE SUCCINATE 5 MG CAPSULE PO SCH (21:00)
[2018-12-05] MEDS ORDERED: TRIAMCINOLONE ACETONIDE 0.1% TOPICAL CREAM 15GM TUBE. TP PRN (21:00)
[2018-12-05] MEDS: FAMOTIDINE 20 MG TABLET. PO SCH (22:08)
[2018-12-05] MEDS: LACTOBACILLUS RHAMNOSUS GG 1 CAPSULE. PO SCH (22:09)
[2018-12-05] MEDS: cefTRIAXone IV Push 1 GM VIAL. IVP SCH (22:09)
--- NOTE | 2018-12-05 23:00 | NUR ---
Pt. refused evening blood sugar check and 2300 vitals.
[2018-12-06 03:00] VITALS: BP 102/58
[2018-12-06 05:31] LABS: BASO # 0.1 x10^3/uL (0.0-0.2); BASO % 1 % (0-3); EOS # 0.1 x10^3/uL (0.0-0.7); EOS % 1 % (0-3); HEMATOCRIT 29.2 % (39.0-53.0); HEMOGLOBIN 9.1 g/dL (13.0-17.5); LYMPH # 1.4 x10^3/uL (1.0-4.8); LYMPH % 15 % (24-48); MEAN CORPUSCULAR HEMOGLOBIN 23 pg (25-35); MEAN CORPUSCULAR HGB CONC 31 g/dL (31-37); MEAN CORPUSCULAR VOLUME 74 fL (79-100); MONO # 0.8 x10^3/uL (0.0-1.1); MONO % 8 % (0-9); NEUT # 7.6 x10^3/uL (1.8-7.7); NEUT % 77 % (31-73); PLATELET COUNT 619 x10^3/uL (140-400); RED BLOOD COUNT 3.93 x10^6/uL (4.30-5.70); RED CELL DISTRIBUTION WIDTH 16.4 % (11.5-14.5); WHITE BLOOD COUNT 9.9 x10^3/uL (4.0-11.0)
[2018-12-06] MEDS: VANCOMYCIN 1 GM in IV NORMAL SALINE 250ML 250 ML IV SCH (05:57)
[2018-12-06 05:58] LABS: ALBUMIN/GLOBULIN RATIO 0.4 (1.0-1.7); CALCIUM 9.3 mg/dL (8.5-10.1); CREATININE 1.1 mg/dL (0.7-1.3); GFR 79.8; POTASSIUM 3.7 mmol/L (3.5-5.1); TOTAL BILIRUBIN 0.2 mg/dL (0.2-1.0); TOTAL PROTEIN 6.5 g/dL (6.4-8.2)
[2018-12-06 07:00] VITALS: BP 99/66
[2018-12-06] MEDS: CARVEDILOL 12.5 MG TABLET. PO SCH ×2 (08:00→17:00)
[2018-12-06] MEDS: LACTOBACILLUS RHAMNOSUS GG 1 CAPSULE. PO SCH ×2 (08:45→21:00)
[2018-12-06] MEDS: FERROUS SULFATE 325 MG TABLET. PO SCH (08:45)
[2018-12-06] MEDS: MULTIVITAMIN with MINERAL TABLET. PO SCH (08:45)
[2018-12-06] MEDS: FAMOTIDINE 20 MG TABLET. PO SCH ×2 (08:45→21:00)
[2018-12-06] MEDS: BENZONATATE 100 MG CAPSULE. PO SCH ×3 (08:45→21:00)
[2018-12-06] MEDS: LISINOPRIL 20 MG TABLET PO SCH (08:47)
[2018-12-06] MEDS: FUROSEMIDE 40 MG/4 ML VIAL. IVP SCH (08:48)
[2018-12-06] MEDS: ASCORBIC ACID 500 MG TABLET PO SCH (08:48)
[2018-12-06] MEDS: ENOXAPARIN 40 MG/0.4 ML SYRINGE. SQ SCH (08:48)
[2018-12-06] MEDS: ZIPRASIDONE 20 MG CAPSULE PO SCH ×2 (09:43→21:00)
[2018-12-06] MEDS ORDERED: POLYETHYLENE GLYCOL 3350 17 GM PACKET. PO PRN (10:22)
[2018-12-06] MEDS: ALBUTEROL SULFATE 2.5 MG/3 ML NEBU. NEB SCH ×3 (10:49→19:55)
[2018-12-06 11:00] VITALS: BP 95/60
[2018-12-06] MEDS: VANCOMYCIN PER PHARMACY MC PRN (13:31)
--- NOTE | 2018-12-06 14:09 | PDOC ---
PROGRESS NOTES Chief Complaint Chief Complaint acute mental status change, acute encephalopathy UTI, rpcehin schizophrenia severe malnutrition weakness and debility, will need PT and OT eval s/p left AKA amputation History of Present Illness History of Present Illness [facility], will try to return soon, blood cx pending, pt eval on IV abx feels better able to sit up to eat still has laryngitis Vitals Vitals Vital Signs Date Time Temp Pulse Resp B/P (MAP) Pulse Ox O2 Delivery O2 Flow Rate FiO2 12/06/18 11:00 97.5 80 18 95/60 (72) 99 Nasal Cannula 2.0 97.5 Physical Exam General: Alert, Oriented X3, Cooperative, No acute distress Abdomen: Normal bowel sounds, Soft Extremities: No cyanosis, No edema, Normal pulses, Other (left AKA) Skin: No breakdown Labs LABS Laboratory Tests Test 12/05/18 21:10 12/06/18 04:55 12/06/18 07:51 12/06/18 11:29 Glucose (Fingerstick) 119 mg/dL (70-99) 78 mg/dL (70-99) 162 mg/dL (70-99) White Blood Count 9.9 x10^3/uL (4.0-11.0) Red Blood Count 3.93 x10^6/uL (4.30-5.70) Hemoglobin 9.1 g/dL (13.0-17.5) Hematocrit 29.2 % (39.0-53.0) Mean Corpuscular Volume 74 fL (79-100) Mean Corpuscular Hemoglobin 23 pg (25-35) Mean Corpuscular Hemoglobin Concent 31 g/dL (31-37) Red Cell Distribution Width 16.4 % (11.5-14.5) Platelet Count 619 x10^3/uL (140-400) Neutrophils (%) (Auto) 77 % (31-73) Lymphocytes (%) (Auto) 15 % (24-48) Monocytes (%) (Auto) 8 % (0-9) Eosinophils (%) (Auto) 1 % (0-3) Basophils (%) (Auto) 1 % (0-3) Neutrophils # (Auto) 7.6 x10^3/uL (1.8-7.7) Lymphocytes # (Auto) 1.4 x10^3/uL (1.0-4.8) Monocytes # (Auto) 0.8 x10^3/uL (0.0-1.1) Eosinophils # (Auto) 0.1 x10^3/uL (0.0-0.7) Basophils # (Auto) 0.1 x10^3/uL (0.0-0.2) Sodium Level 137 mmol/L (136-145) Potassium Level 3.7 mmol/L (3.5-5.1) Chloride Level 98 mmol/L (98-107) Carbon Dioxide Level 38 mmol/L (21-32) Anion Gap 1 (6-14) Blood Urea Nitrogen 26 mg/dL (8-26) Creatinine 1.1 mg/dL (0.7-1.3) Estimated GFR (Cockcroft-Gault) 79.8 BUN/Creatinine Ratio 24 (6-20) Glucose Level 85 mg/dL (70-99) Calcium Level 9.3 mg/dL (8.5-10.1) Total Bilirubin 0.2 mg/dL (0.2-1.0) Aspartate Amino Transf (AST/SGOT) 13 U/L (15-37) Alanine Aminotransferase (ALT/SGPT) 12 U/L (16-63) Alkaline Phosphatase 77 U/L (46-116) Total Protein 6.5 g/dL (6.4-8.2) Albumin 2.0 g/dL (3.4-5.0) Albumin/Globulin Ratio 0.4 (1.0-1.7) Review of Systems Review of Systems weakness, weakness of voice, no pain Assessment and Plan Assessmemt and Plan Problems Medical Problems: (1) Abnormal chest xray Status: Acute (2) Acute metabolic encephalopathy Status: Acute (3) CHF (congestive heart failure) Status: Acute Comment Review of Relevant I have reviewed the following items nir (where applicable) has been applied. Labs Laboratory Tests Test 12/05/18 00:00 12/05/18 00:35 12/05/18 00:40 12/05/18 01:25 White Blood Count 8.2 x10^3/uL (4.0-11.0) Red Blood Count 4.07 x10^6/uL (4.30-5.70) Hemoglobin 9.3 g/dL (13.0-17.5) Hematocrit 29.8 % (39.0-53.0) Mean Corpuscular Volume 73 fL (79-100) Mean Corpuscular Hemoglobin 23 pg (25-35) Mean Corpuscular Hemoglobin Concent 31 g/dL (31-37) Red Cell Distribution Width 16.2 % (11.5-14.5) Platelet Count 645 x10^3/uL (140-400) Neutrophils (%) (Auto) 76 % (31-73) Lymphocytes (%) (Auto) 14 % (24-48) Monocytes (%) (Auto) 8 % (0-9) Eosinophils (%) (Auto) 1 % (0-3) Basophils (%) (Auto) 1 % (0-3) Neutrophils # (Auto) 6.2 x10^3/uL (1.8-7.7) Lymphocytes # (Auto) 1.1 x10^3/uL (1.0-4.8) Monocytes # (Auto) 0.7 x10^3/uL (0.0-1.1) Eosinophils # (Auto) 0.1 x10^3/uL (0.0-0.7) Basophils # (Auto) 0.1 x10^3/uL (0.0-0.2) Platelet Estimate Increased (ADEQUATE) Hypochromasia Mod Poikilocytosis Slight Anisocytosis Slight Microcytosis Slight Target Cells Occ Tear Drop Cells Occ Ovalocytes Few Schistocytes Occ Sodium Level 135 mmol/L (136-145) Potassium Level 3.8 mmol/L (3.5-5.1) Chloride Level 99 mmol/L (98-107) Carbon Dioxide Level 38 mmol/L (21-32) Anion Gap (6-14) Blood Urea Nitrogen 20 mg/dL (8-26) Creatinine 1.0 mg/dL (0.7-1.3) Estimated GFR (Cockcroft-Gault) 89.1 BUN/Creatinine Ratio 20 (6-20) Glucose Level 97 mg/dL (70-99) Lactic Acid Level 0.4 mmol/L (0.4-2.0) Calcium Level 9.5 mg/dL (8.5-10.1) Total Bilirubin 0.1 mg/dL (0.2-1.0) Aspartate Amino Transf (AST/SGOT) 17 U/L (15-37) Alanine Aminotransferase (ALT/SGPT) 20 U/L (16-63) Alkaline Phosphatase 83 U/L (46-116) UC-Uqk-M-Type Natriuretic Peptide 3113 pg/mL (0-124) Total Protein 6.9 g/dL (6.4-8.2) Albumin 2.1 g/dL (3.4-5.0) Albumin/Globulin Ratio 0.4 (1.0-1.7) Urine Collection Type Suprapubic Urine Color Yellow Urine Clarity Cloudy Urine pH 6.0 Urine Specific Soldier 1.020 Urine Protein 100 mg/dL (NEG-TRACE) Urine Glucose (UA) Negative mg/dL (NEG) Urine Ketones (Stick) Negative mg/dL (NEG) Urine Blood Moderate (NEG) Urine Nitrite Negative (NEG) Urine Bilirubin Negative (NEG) Urine Urobilinogen Dipstick 0.2 mg/dL (0.2 mg/dL) Urine Leukocyte Esterase Moderate (NEG) Urine RBC 11-20 /HPF (0-2) Urine WBC 20-40 /HPF (0-4) Urine Squamous Epithelial Cells None /LPF Urine Amorphous Sediment Present /HPF Urine Bacteria Few /HPF (0-FEW) Urine Hyaline Casts Few /HPF Urine Granular Casts Few /HPF Urine Mucus Marked /LPF O2 Saturation 99 % (92-99) 95 % (92-99) Arterial Blood pH 7.24 (7.35-7.45) 7.33 (7.35-7.45) Arterial Blood pCO2 at Patient Temp 92 mmHg (35-46) 72 mmHg (35-46) Arterial Blood pO2 at Patient Temp 273 mmHg (65-108) 81 mmHg (65-108) Arterial Blood HCO3 39 mmol/L (21-28) 37 mmol/L (21-28) Arterial Blood Base Excess 9 mmol/L (-3-3) 9 mmol/L (-3-3) FiO2 30 Test 12/05/18 08:14 12/05/18 21:10 12/06/18 04:55 12/06/18 07:51 Procalcitonin < 0.10 ng/mL (0.00-0.10) Glucose (Fingerstick) 119 mg/dL (70-99) 78 mg/dL (70-99) White Blood Count 9.9 x10^3/uL (4.0-11.0) Red Blood Count 3.93 x10^6/uL (4.30-5.70) Hemoglobin 9.1 g/dL (13.0-17.5) Hematocrit 29.2 % (39.0-53.0) Mean Corpuscular Volume 74 fL (79-100) Mean Corpuscular Hemoglobin 23 pg (25-35) Mean Corpuscular Hemoglobin Concent 31 g/dL (31-37) Red Cell Distribution Width 16.4 % (11.5-14.5) Platelet Count 619 x10^3/uL (140-400) Neutrophils (%) (Auto) 77 % (31-73) Lymphocytes (%) (Auto) 15 % (24-48) Monocytes (%) (Auto) 8 % (0-9) Eosinophils (%) (Auto) 1 % (0-3) Basophils (%) (Auto) 1 % (0-3) Neutrophils # (Auto) 7.6 x10^3/uL (1.8-7.7) Lymphocytes # (Auto) 1.4 x10^3/uL (1.0-4.8) Monocytes # (Auto) 0.8 x10^3/uL (0.0-1.1) Eosinophils # (Auto) 0.1 x10^3/uL (0.0-0.7) Basophils # (Auto) 0.1 x10^3/uL (0.0-0.2) Sodium Level 137 mmol/L (136-145) Potassium Level 3.7 mmol/L (3.5-5.1) Chloride Level 98 mmol/L (98-107) Carbon Dioxide Level 38 mmol/L (21-32) Anion Gap 1 (6-14) Blood Urea Nitrogen 26 mg/dL (8-26) Creatinine 1.1 mg/dL (0.7-1.3) Estimated GFR (Cockcroft-Gault) 79.8 BUN/Creatinine Ratio 24 (6-20) Glucose Level 85 mg/dL (70-99) Calcium Level 9.3 mg/dL (8.5-10.1) Total Bilirubin 0.2 mg/dL (0.2-1.0) Aspartate Amino Transf (AST/SGOT) 13 U/L (15-37) Alanine Aminotransferase (ALT/SGPT) 12 U/L (16-63) Alkaline Phosphatase 77 U/L (46-116) Total Protein 6.5 g/dL (6.4-8.2) Albumin 2.0 g/dL (3.4-5.0) Albumin/Globulin Ratio 0.4 (1.0-1.7) Test 12/06/18 11:29 Glucose (Fingerstick) 162 mg/dL (70-99) Laboratory Tests Test 12/05/18 21:10 12/06/18 04:55 12/06/18 07:51 12/06/18 11:29 Glucose (Fingerstick) 119 mg/dL (70-99) 78 mg/dL (70-99) 162 mg/dL (70-99) White Blood Count 9.9 x10^3/uL (4.0-11.0) Red Blood Count 3.93 x10^6/uL (4.30-5.70) Hemoglobin 9.1 g/dL (13.0-17.5) Hematocrit 29.2 % (39.0-53.0) Mean Corpuscular Volume 74 fL (79-100) Mean Corpuscular Hemoglobin 23 pg (25-35) Mean Corpuscular Hemoglobin Concent 31 g/dL (31-37) Red Cell Distribution Width 16.4 % (11.5-14.5) Platelet Count 619 x10^3/uL (140-400) Neutrophils (%) (Auto) 77 % (31-73) Lymphocytes (%) (Auto) 15 % (24-48) Monocytes (%) (Auto) 8 % (0-9) Eosinophils (%) (Auto) 1 % (0-3) Basophils (%) (Auto) 1 % (0-3) Neutrophils # (Auto) 7.6 x10^3/uL (1.8-7.7) Lymphocytes # (Auto) 1.4 x10^3/uL (1.0-4.8) Monocytes # (Auto) 0.8 x10^3/uL (0.0-1.1) Eosinophils # (Auto) 0.1 x10^3/uL (0.0-0.7) Basophils # (Auto) 0.1 x10^3/uL (0.0-0.2) Sodium Level 137 mmol/L (136-145) Potassium Level 3.7 mmol/L (3.5-5.1) Chloride Level 98 mmol/L (98-107) Carbon Dioxide Level 38 mmol/L (21-32) Anion Gap 1 (6-14) Blood Urea Nitrogen 26 mg/dL (8-26) Creatinine 1.1 mg/dL (0.7-1.3) Estimated GFR (Cockcroft-Gault) 79.8 BUN/Creatinine Ratio 24 (6-20) Glucose Level 85 mg/dL (70-99) Calcium Level 9.3 mg/dL (8.5-10.1) Total Bilirubin 0.2 mg/dL (0.2-1.0) Aspartate Amino Transf (AST/SGOT) 13 U/L (15-37) Alanine Aminotransferase (ALT/SGPT) 12 U/L (16-63) Alkaline Phosphatase 77 U/L (46-116) Total Protein 6.5 g/dL (6.4-8.2) Albumin 2.0 g/dL (3.4-5.0) Albumin/Globulin Ratio 0.4 (1.0-1.7) Medications Current Medications Ceftriaxone Sodium (Rocephin) 1 gm 1X ONCE IVP Last administered on 12/05/18at 01:30; Start 12/05/18 at 01:30; Stop 12/05/18 at 01:31; Status DC Levofloxacin/ Dextrose 150 ml @ 100 mls/hr 1X ONCE IV Last administered on 12/05/18at 02:50; Start 12/05/18 at 02:30; Stop 12/05/18 at 03:59; Status DC Vancomycin HCl (Vanco Per Pharmacy) 1 each PRN DAILY PRN MC SEE COMMENTS Last administered on 12/06/18at 13:31; Start 12/05/18 at 02:30 Furosemide (Lasix) 40 mg 1X ONCE IVP Last administered on 12/05/18at 02:50; Start 12/05/18 at 02:30; Stop 12/05/18 at 02:31; Status DC Vancomycin HCl 1.25 gm/Sodium Chloride 250 ml @ 166.667 mls/hr 1X ONCE IV Last administered on 12/05/18at 05:27; Start 12/05/18 at 03:00; Stop 12/05/18 at 04:29; Status DC Ondansetron HCl (Zofran) 4 mg PRN Q8HRS PRN IV NAUSEA/VOMITING; Start 12/05/18 at 03:15; Stop 12/06/18 at 03:14; Status DC Acetaminophen (Tylenol) 650 mg PRN Q4HRS PRN PO FEVER; Start 12/05/18 at 03:15; Stop 12/06/18 at 03:14; Status DC Albuterol/ Ipratropium (Duoneb) 3 ml RTQID NEB Last administered on 12/05/18at 16:46; Start 12/05/18 at 08:00; Stop 12/06/18 at 07:59; Status DC Furosemide (Lasix) 40 mg DAILY IVP Last administered on 12/05/18at 09:00; Start 12/05/18 at 09:00 Vancomycin HCl 1 gm/Sodium Chloride 250 ml @ 250 mls/hr Q24H IV Last administered on 12/06/18 05:57; Start 12/06/18 at 05:30 Vancomycin HCl (Vancomycin Trough Level) 1 each 1X ONCE MC ; Start 12/07/18 at 05:00; Stop 12/07/18 at 05:01 Albuterol Sulfate (Ventolin Neb Soln) 2.5 mg RTQID NEB Last administered on 12/06/18at 10:49; Start 12/05/18 at 12:00 Benzonatate (Tessalon Perle) 100 mg TID PO Last administered on 12/06/18 08:45; Start 12/05/18 at 12:00 Enoxaparin Sodium (Lovenox 40mg Syringe) 40 mg DAILY SQ Last administered on 12/06/18 08:48; Start 12/05/18 at 11:00 Ferrous Sulfate (Feosol) 325 mg DAILY PO Last administered on 12/06/18 08:45; Start 12/05/18 at 11:00 Lisinopril (Prinivil) 20 mg DAILY PO Last administered on 12/05/18at 11:14; Start 12/05/18 at 11:00 Loxapine Succinate (Loxitane) 5 mg PRN Q12HRS PRN PO AGITATION; Start 12/05/18 at 10:15 Carvedilol (Coreg) 25 mg BIDWMEALS PO Last administered on 12/05/18at 11:15; Start 12/05/18 at 11:00 Loxapine Succinate (Loxitane) 10 mg QHS PO ; Start 12/05/18 at 21:00 Multivitamins (Thera M Plus) 1 tab DAILY PO Last administered on 12/06/18at 08:45; Start 12/05/18 at 11:00 Pantoprazole Sodium (Protonix) 40 mg DAILYAC PO Last administered on 12/05/18 11:15; Start 12/05/18 at 11:00; Stop 12/05/18 at 15:53; Status DC Polyethylene Glycol (miraLAX PACKET) 17 gm PRN Q12HRS PRN PO CONSTIPATION; Start 12/06/18 at 10:22 Triamcinolone Acetonide (Kenalog 0.1%) 1 gemini PRN BID PRN TP SKIN CONDITION; Start 12/05/18 at 21:00 Ziprasidone (Geodon) 80 mg BID PO Last administered on 12/06/18at 09:43; Start 12/05/18 at 11:00 Ceftriaxone Sodium (Rocephin) 1 gm Q24H IVP Last administered on 12/05/18at 22:09; Start 12/05/18 at 21:00 Ascorbic Acid (Vitamin C) 500 mg DAILY PO Last administered on 12/06/18 08:48; Start 12/05/18 at 14:00 Lactobacillus Rhamnosus (Culturelle) 1 cap BID PO Last administered on 12/06/18 08:45; Start 12/05/18 at 21:00 Famotidine (Pepcid) 20 mg BID PO Last administered on 12/06/18 08:45; Start 12/05/18 at 21:00 Active Scripts Active Reported Albuterol Sulfate Neb Soln (Albuterol Sulfate) 2.5 Mg/3 Ml Vial.neb 2.5 Mg NEB QID Geodon (Ziprasidone Hcl) 80 Mg Capsule 1 Cap PO BID Triamcinolone Acetonide 0.025% Cream (Triamcinolone Acetonide) 15 Gm Cream..g. 1 Gemini TP PRN BID PRN APPLY TO RLE TOPICALLY NEEDED AND APPLY COMPRESSION WRAP Polyethylene Glycol 3350 2,500 Gm Powder 17 Gm PO PRN Q12HRS PRN Protonix (Pantoprazole Sodium) 20 Mg Tablet.dr 40 Mg PO DAILY Multivitamins (Multivitamin) 1 Each Tablet 1 Tab PO DAILY Loxapine (Loxapine Succinate) 5 Mg Capsule 5 Mg PO PRN Q12HRS PRN Loxapine (Loxapine Succinate) 10 Mg Capsule 10 Mg PO HS GIVE 3 CAPSULE BY MOUTH AT BEDTIME FOR AGITATION Lisinopril 20 Mg Tablet 20 Mg PO DAILY HOLD FOR SBP < 110 Ferrous Sulfate 325 Mg Tablet 1 Tab PO DAILY Lovenox (Enoxaparin Sodium) 40 Mg/0.4 Ml Disp.syrin 40 Mg SQ DAILY Carvedilol 25 Mg Tablet 25 Mg PO BIDWMEALS hold for SBP < 110 and pulse < 40 Benzonatate 100 Mg Capsule 1 Cap PO TID Amox Tr-K Clv 875-125 Mg Tab (Amoxicillin/Potassium Clav) 1 Each Tablet 1 Tab PO BID 4 Days Vitals/I & O Vital Sign - Last 24 Hours 12/05/18 12/05/18 12/05/18 12/05/18 15:00 16:45 19:00 20:00 Temp 97.9 98.1 97.9 98.1 Pulse 71 71 92 Resp 19 20 B/P (MAP) 71/44 (53) 71/44 102/73 (83) Pulse Ox 100 92 O2 Delivery Room Air Room Air Nasal Cannula O2 Flow Rate 3.0 12/05/18 12/06/18 12/06/18 12/06/18 20:11 03:00 07:00 08:00 Temp 98.1 97.8 98.1 97.8 Pulse 77 83 Resp 18 18 B/P (MAP) 102/58 (73) 99/66 (77) Pulse Ox 98 99 O2 Delivery Nasal Cannula Nasal Cannula Nasal Cannula Nasal Cannula O2 Flow Rate 2.0 2.0 2.0 3.0 12/06/18 12/06/18 12/06/18 12/06/18 08:00 08:47 10:51 11:00 Temp 97.5 97.5 Pulse 83 83 80 Resp 18 B/P (MAP) 99/66 99/66 95/60 (72) Pulse Ox 95 99 O2 Delivery Nasal Cannula Nasal Cannula O2 Flow Rate 2.0 2.0 Intake and Output 12/05/18 12/05/18 12/06/18 15:00 23:00 07:00 Intake Total 240 ml 200 ml 650 ml Output Total 700 ml Balance 240 ml 200 ml -50 ml Nutrition Consultation Dietary Evaluation: Recommendations by RD: Increase Calorie Intake, Protein supplementation Comments: Continue w/regular diet, honor food preferences, and provide snacks as requested REC Ensure TID (strawberry) REC continue w/MVI, Vit C - wound healing Expected Outcomes/Goals: PO intake >75% est needs Malnutrition Findings: Muscle Mass (Severe): Severe Depletion Body Fat Depletion (Non Severe: Mod to Severe Weight Status: Emaciated JUAN C MEDEIROS MD Dec 06, 2018 14:09
[2018-12-06 15:00] VITALS: BP 103/65
[2018-12-06] MEDS: LOXAPINE SUCCINATE 5 MG CAPSULE PO SCH (21:00)
[2018-12-06] MEDS: cefTRIAXone IV Push 1 GM VIAL. IVP SCH (21:00)
[2018-12-06 23:00] VITALS: BP 119/78
--- NOTE | 2018-12-07 00:10 | NUR ---
2100 meds scanned and administered but did not save. All meds were manually entered.
[2018-12-07 05:41] LABS: VANC TR 10.3 mcg/mL (10.0-20.0)
[2018-12-07] MEDS: VANCOMYCIN 1 GM in IV NORMAL SALINE 250ML 250 ML IV SCH (06:21)
[2018-12-07] MEDS: VANCOMYCIN PER PHARMACY MC PRN (06:50)
--- NOTE | 2018-12-07 06:51 | NUR ---
Pharmacy Vancomycin Dosing Note S: Consulted to monitor and dose vancomycin started 12/05/18. O: JOSE MOODY is a 73 year old M with UTI, WOUND CARE . Other Antibiotics: LEVOFLOXACIN 750MG IV X1 IN ER (12/05) ROCEPHIN 1GM IV Q24HRS LABS: Last BUN: 26 Last Creatinine: 1.1 Creatinine Clearance: 38.7 mL/min Last WBC: 9.9 Last Procalcitonin: < 0.1 Tmax (past 24 hours): AFEBRILE Microbiology: I/O: Drug Levels: Last Trough level: 10.3 on 12/07/18 at 0500 Last dose given 12/06/18 at 0557 Vancomycin Dosing: Dosing Weight: Actual Target Trough: 10-20 12/07/18 CRCL DEC FROM 52 TO 38.7 MLS/MIN KEEP SAME DOSING BECAUSE OF CRCL DECREASE A: Based on: Trough, Actual Wt and decrease in CrCl P: 1. 12/07/18 Continue Vancomycin 1000 mg IV q24h 2. Follow up Trough level as needed 3. Pharmacy will continue to monitor, follow and adjust therapy as needed. CAROL FINK RPH, 12/07/18 0651 Signed: 12/07/18 at 0653 by CAROL FINK RPH PHA
[2018-12-07] MEDS: ALBUTEROL SULFATE 2.5 MG/3 ML NEBU. NEB SCH ×4 (07:19→19:29)
[2018-12-07] MEDS: CARVEDILOL 12.5 MG TABLET. PO SCH ×2 (08:43→16:44)
[2018-12-07] MEDS: ASCORBIC ACID 500 MG TABLET PO SCH (08:43)
[2018-12-07] MEDS: FAMOTIDINE 20 MG TABLET. PO SCH ×2 (08:43→22:04)
[2018-12-07] MEDS: ZIPRASIDONE 20 MG CAPSULE PO SCH ×2 (08:43→22:04)
[2018-12-07] MEDS: LACTOBACILLUS RHAMNOSUS GG 1 CAPSULE. PO SCH ×2 (08:43→22:04)
[2018-12-07] MEDS: MULTIVITAMIN with MINERAL TABLET. PO SCH (08:43)
[2018-12-07] MEDS: BENZONATATE 100 MG CAPSULE. PO SCH ×3 (08:43→22:04)
[2018-12-07] MEDS: FERROUS SULFATE 325 MG TABLET. PO SCH (08:43)
[2018-12-07] MEDS: FUROSEMIDE 40 MG/4 ML VIAL. IVP SCH (08:44)
[2018-12-07] MEDS: ENOXAPARIN 40 MG/0.4 ML SYRINGE. SQ SCH (08:44)
[2018-12-07] MEDS: LISINOPRIL 20 MG TABLET PO SCH (08:44)
[2018-12-07 11:00] VITALS: BP 77/47
--- NOTE | 2018-12-07 14:48 | PDOC ---
PROGRESS NOTES Chief Complaint Chief Complaint Acute encephalopathy Acute hypercapnic respiratory failure Acute hypoxic respiratory failure UTI, ropcephin schizophrenia severe malnutrition weakness and debility, will need PT and OT eval s/p left AKA amputation Anemia of chronic disease History of Present Illness History of Present Illness [facility], will try to return soon, blood cx pending, pt eval pending. on IV abx. procalcitonin negative Overnight had a bit low BP. He is able to sit up to eat. His ABG has improved after BIPAP, PCO2 in 90s to 72. He still c/o laryngitis and has right basilar rhonchi Vitals Vitals Vital Signs Date Time Temp Pulse Resp B/P (MAP) Pulse Ox O2 Delivery O2 Flow Rate FiO2 12/07/18 11:17 95 Nasal Cannula 2.0 12/07/18 11:00 98.1 67 18 77/47 (57) 98.1 Physical Exam General: Alert, Cooperative, No acute distress Heart: Regular rate Lungs: Other (Right basilar rhonchi) Abdomen: Normal bowel sounds, Soft Extremities: No cyanosis, No edema, Normal pulses, Other (left AKA) Skin: No breakdown Labs LABS Laboratory Tests Test 12/06/18 22:35 12/07/18 05:00 Glucose (Fingerstick) 109 mg/dL (70-99) Vancomycin Level Trough 10.3 mcg/mL (10.0-20.0) Vancomycin Last Dose Date 12/06/18 Vancomycin Last Dose Time 0530 Assessment and Plan Assessmemt and Plan Problems Medical Problems: (1) Abnormal chest xray Status: Acute (2) Acute metabolic encephalopathy Status: Acute (3) CHF (congestive heart failure) Status: Acute Comment Review of Relevant I have reviewed the following items nir (where applicable) has been applied. Labs Laboratory Tests Test 12/05/18 21:10 12/06/18 04:55 12/06/18 07:51 12/06/18 11:29 Glucose (Fingerstick) 119 mg/dL (70-99) 78 mg/dL (70-99) 162 mg/dL (70-99) White Blood Count 9.9 x10^3/uL (4.0-11.0) Red Blood Count 3.93 x10^6/uL (4.30-5.70) Hemoglobin 9.1 g/dL (13.0-17.5) Hematocrit 29.2 % (39.0-53.0) Mean Corpuscular Volume 74 fL (79-100) Mean Corpuscular Hemoglobin 23 pg (25-35) Mean Corpuscular Hemoglobin Concent 31 g/dL (31-37) Red Cell Distribution Width 16.4 % (11.5-14.5) Platelet Count 619 x10^3/uL (140-400) Neutrophils (%) (Auto) 77 % (31-73) Lymphocytes (%) (Auto) 15 % (24-48) Monocytes (%) (Auto) 8 % (0-9) Eosinophils (%) (Auto) 1 % (0-3) Basophils (%) (Auto) 1 % (0-3) Neutrophils # (Auto) 7.6 x10^3/uL (1.8-7.7) Lymphocytes # (Auto) 1.4 x10^3/uL (1.0-4.8) Monocytes # (Auto) 0.8 x10^3/uL (0.0-1.1) Eosinophils # (Auto) 0.1 x10^3/uL (0.0-0.7) Basophils # (Auto) 0.1 x10^3/uL (0.0-0.2) Sodium Level 137 mmol/L (136-145) Potassium Level 3.7 mmol/L (3.5-5.1) Chloride Level 98 mmol/L (98-107) Carbon Dioxide Level 38 mmol/L (21-32) Anion Gap 1 (6-14) Blood Urea Nitrogen 26 mg/dL (8-26) Creatinine 1.1 mg/dL (0.7-1.3) Estimated GFR (Cockcroft-Gault) 79.8 BUN/Creatinine Ratio 24 (6-20) Glucose Level 85 mg/dL (70-99) Calcium Level 9.3 mg/dL (8.5-10.1) Total Bilirubin 0.2 mg/dL (0.2-1.0) Aspartate Amino Transf (AST/SGOT) 13 U/L (15-37) Alanine Aminotransferase (ALT/SGPT) 12 U/L (16-63) Alkaline Phosphatase 77 U/L (46-116) Total Protein 6.5 g/dL (6.4-8.2) Albumin 2.0 g/dL (3.4-5.0) Albumin/Globulin Ratio 0.4 (1.0-1.7) Test 12/06/18 22:35 12/07/18 05:00 Glucose (Fingerstick) 109 mg/dL (70-99) Vancomycin Level Trough 10.3 mcg/mL (10.0-20.0) Vancomycin Last Dose Date 12/06/18 Vancomycin Last Dose Time 0530 Laboratory Tests Test 12/06/18 22:35 12/07/18 05:00 Glucose (Fingerstick) 109 mg/dL (70-99) Vancomycin Level Trough 10.3 mcg/mL (10.0-20.0) Vancomycin Last Dose Date 12/06/18 Vancomycin Last Dose Time 0530 Microbiology 12/05/18 Urine Culture - Final, Complete 12/05/18 Urine Culture Result 1 (ART) - Final, Complete Medications Current Medications Ceftriaxone Sodium (Rocephin) 1 gm 1X ONCE IVP Last administered on 12/05/18at 01:30; Start 12/05/18 at 01:30; Stop 12/05/18 at 01:31; Status DC Levofloxacin/ Dextrose 150 ml @ 100 mls/hr 1X ONCE IV Last administered on 12/05/18at 02:50; Start 12/05/18 at 02:30; Stop 12/05/18 at 03:59; Status DC Vancomycin HCl (Vanco Per Pharmacy) 1 each PRN DAILY PRN MC SEE COMMENTS Last administered on 12/07/18at 06:50; Start 12/05/18 at 02:30 Furosemide (Lasix) 40 mg 1X ONCE IVP Last administered on 12/05/18at 02:50; Start 12/05/18 at 02:30; Stop 12/05/18 at 02:31; Status DC Vancomycin HCl 1.25 gm/Sodium Chloride 250 ml @ 166.667 mls/hr 1X ONCE IV Last administered on 12/05/18at 05:27; Start 12/05/18 at 03:00; Stop 12/05/18 at 04:29; Status DC Ondansetron HCl (Zofran) 4 mg PRN Q8HRS PRN IV NAUSEA/VOMITING; Start 12/05/18 at 03:15; Stop 12/06/18 at 03:14; Status DC Acetaminophen (Tylenol) 650 mg PRN Q4HRS PRN PO FEVER; Start 12/05/18 at 03:15; Stop 12/06/18 at 03:14; Status DC Albuterol/ Ipratropium (Duoneb) 3 ml RTQID NEB Last administered on 12/05/18 16:46; Start 12/05/18 at 08:00; Stop 12/06/18 at 07:59; Status DC Furosemide (Lasix) 40 mg DAILY IVP Last administered on 12/07/18 08:44; Start 12/05/18 at 09:00 Vancomycin HCl 1 gm/Sodium Chloride 250 ml @ 250 mls/hr Q24H IV Last administered on 12/07/18 06:21; Start 12/06/18 at 05:30 Vancomycin HCl (Vancomycin Trough Level) 1 each 1X ONCE MC Last administered on 12/07/18 05:00; Start 12/07/18 at 05:00; Stop 12/07/18 at 05:01; Status DC Albuterol Sulfate (Ventolin Neb Soln) 2.5 mg RTQID NEB Last administered on 12/07/18 11:15; Start 12/05/18 at 12:00 Benzonatate (Tessalon Perle) 100 mg TID PO Last administered on 12/07/18 13:54; Start 12/05/18 at 12:00 Enoxaparin Sodium (Lovenox 40mg Syringe) 40 mg DAILY SQ Last administered on 12/07/18 08:44; Start 12/05/18 at 11:00 Ferrous Sulfate (Feosol) 325 mg DAILY PO Last administered on 12/07/18 08:43; Start 12/05/18 at 11:00 Lisinopril (Prinivil) 20 mg DAILY PO Last administered on 12/07/18 08:44; Start 12/05/18 at 11:00 Loxapine Succinate (Loxitane) 5 mg PRN Q12HRS PRN PO AGITATION; Start 12/05/18 at 10:15 Carvedilol (Coreg) 25 mg BIDWMEALS PO Last administered on 12/07/18 08:43; Start 12/05/18 at 11:00 Loxapine Succinate (Loxitane) 10 mg QHS PO Last administered on 12/06/18 21:00; Start 12/05/18 at 21:00 Multivitamins (Thera M Plus) 1 tab DAILY PO Last administered on 12/07/18 08:43; Start 12/05/18 at 11:00 Pantoprazole Sodium (Protonix) 40 mg DAILYAC PO Last administered on 12/05/18 11:15; Start 12/05/18 at 11:00; Stop 12/05/18 at 15:53; Status DC Polyethylene Glycol (miraLAX PACKET) 17 gm PRN Q12HRS PRN PO CONSTIPATION; Start 12/06/18 at 10:22 Triamcinolone Acetonide (Kenalog 0.1%) 1 gemini PRN BID PRN TP SKIN CONDITION; Start 12/05/18 at 21:00 Ziprasidone (Geodon) 80 mg BID PO Last administered on 12/07/18 08:43; Start 12/05/18 at 11:00 Ceftriaxone Sodium (Rocephin) 1 gm Q24H IVP Last administered on 12/06/18 21:00; Start 12/05/18 at 21:00 Ascorbic Acid (Vitamin C) 500 mg DAILY PO Last administered on 12/07/18 08:43; Start 12/05/18 at 14:00 Lactobacillus Rhamnosus (Culturelle) 1 cap BID PO Last administered on 12/07/18 08:43; Start 12/05/18 at 21:00 Famotidine (Pepcid) 20 mg BID PO Last administered on 12/07/18 08:43; Start 12/05/18 at 21:00 Active Scripts Active Reported Albuterol Sulfate Neb Soln (Albuterol Sulfate) 2.5 Mg/3 Ml Vial.neb 2.5 Mg NEB QID Geodon (Ziprasidone Hcl) 80 Mg Capsule 1 Cap PO BID Triamcinolone Acetonide 0.025% Cream (Triamcinolone Acetonide) 15 Gm Cream..g. 1 Gemini TP PRN BID PRN APPLY TO RLE TOPICALLY NEEDED AND APPLY COMPRESSION WRAP Polyethylene Glycol 3350 2,500 Gm Powder 17 Gm PO PRN Q12HRS PRN Protonix (Pantoprazole Sodium) 20 Mg Tablet.dr 40 Mg PO DAILY Multivitamins (Multivitamin) 1 Each Tablet 1 Tab PO DAILY Loxapine (Loxapine Succinate) 5 Mg Capsule 5 Mg PO PRN Q12HRS PRN Loxapine (Loxapine Succinate) 10 Mg Capsule 10 Mg PO HS GIVE 3 CAPSULE BY MOUTH AT BEDTIME FOR AGITATION Lisinopril 20 Mg Tablet 20 Mg PO DAILY HOLD FOR SBP < 110 Ferrous Sulfate 325 Mg Tablet 1 Tab PO DAILY Lovenox (Enoxaparin Sodium) 40 Mg/0.4 Ml Disp.syrin 40 Mg SQ DAILY Carvedilol 25 Mg Tablet 25 Mg PO BIDWMEALS hold for SBP < 110 and pulse < 40 Benzonatate 100 Mg Capsule 1 Cap PO TID Amox Tr-K Clv 875-125 Mg Tab (Amoxicillin/Potassium Clav) 1 Each Tablet 1 Tab PO BID 4 Days Vitals/I & O Vital Sign - Last 24 Hours 12/06/18 12/06/18 12/06/18 12/06/18 15:00 19:56 20:00 23:00 Temp 97.5 98.0 97.5 98.0 Pulse 93 91 Resp 18 20 B/P (MAP) 103/65 (78) 119/78 (92) Pulse Ox 97 95 O2 Delivery Nasal Cannula Nasal Cannula Nasal Cannula Room Air O2 Flow Rate 2.0 2.0 3.0 91.0 12/07/18 12/07/18 12/07/18 12/07/18 08:00 08:43 08:44 11:00 Temp 98.1 98.1 Pulse 91 91 67 Resp 18 B/P (MAP) 119/78 119/78 77/47 (57) Pulse Ox 100 O2 Delivery Nasal Cannula Room Air O2 Flow Rate 3.0 12/07/18 11:17 Pulse Ox 95 O2 Delivery Nasal Cannula O2 Flow Rate 2.0 Intake and Output 12/06/18 12/06/18 12/07/18 15:00 23:00 07:00 Intake Total 440 ml Output Total 225 ml Balance -225 ml 440 ml Nutrition Consultation Dietary Evaluation: Recommendations by RD: Increase Calorie Intake, Protein supplementation Comments: Continue w/regular diet, honor food preferences, and provide snacks as requested REC Ensure TID (strawberry) REC continue w/MVI, Vit C - wound healing Expected Outcomes/Goals: PO intake >75% est needs Malnutrition Findings: Muscle Mass (Severe): Severe Depletion Body Fat Depletion (Non Severe: Mod to Severe Weight Status: Emaciated SHAWNEE BLANCHARD MD Dec 07, 2018 14:48
[2018-12-07 15:00] VITALS: BP 98/48
[2018-12-07 19:00] VITALS: BP 109/53
[2018-12-07] MEDS: LOXAPINE SUCCINATE 5 MG CAPSULE PO SCH (22:04)
[2018-12-07] MEDS: cefTRIAXone IV Push 1 GM VIAL. IVP SCH (22:04)
[2018-12-07 23:00] VITALS: BP 117/66
[2018-12-08 03:00] VITALS: BP 98/60
[2018-12-08] MEDS: VANCOMYCIN 1 GM in IV NORMAL SALINE 250ML 250 ML IV SCH (06:38)
[2018-12-08 07:00] VITALS: BP 117/71
[2018-12-08] MEDS: ALBUTEROL SULFATE 2.5 MG/3 ML NEBU. NEB SCH ×2 (07:26→11:25)
[2018-12-08] MEDS: ZIPRASIDONE 20 MG CAPSULE PO SCH (09:00)
[2018-12-08] MEDS ORDERED: SULF1TAB24 PO (09:07)
--- NOTE | 2018-12-08 09:08 | SNU/HH DC ---
DISCHARGE ORDERS DISCHARGE INFORMATION: DISCHARGE DATE: Dec 08, 2018 FINAL DIAGNOSIS Problems Medical Problems: (1) Abnormal chest xray Status: Acute (2) Acute hypercapnic respiratory failure Status: Acute (3) Acute metabolic encephalopathy Status: Acute (4) Altered mental status Status: Acute (5) CHF (congestive heart failure) Status: Acute CONDITION ON DISCHARGE: Stable CODE STATUS: Code Status: Full [facility]: SNF STAY <30 DAYS: Yes HOSPICE: HOSPICE: No HOSPICE EVAL & TREAT: No LTAC: ADMIT TO LTAC: No POST DISCHARGE ORDERS: DIET AFTER DISCHARGE: Regular CHECKS AFTER DISCHARGE: CHECKS AFTER DISCHARGE: Check blood press - daily FOLLOW-UP: PHYSICIAN FOLLOW-UP: pcp prn, urine cx is actually neg TREATMENT/EQUIPMENT ORDERS: ADAPTIVE EQUIPMENT NEEDED: Wheelchair Physical Therapy For: Evalulation/Treatment Occupational Therapy For: Evaluation/Treatment DISCHARGE MEDICATIONS: Home Meds Active Scripts Sulfamethoxazole/Trimethoprim (BACTRIM DS TABLET) 1 Each Tablet, 1 TAB PO BID for abx, #10 TAB Prov:ELICEO CHIU MD 12/08/18 Reported Medications Albuterol Sulfate (ALBUTEROL SULFATE NEB SOLN) 2.5 Mg/3 Ml Vial.neb, 2.5 MG NEB QID for SHORT OF AIR, EACH 0 Refills 12/05/18 Ziprasidone Hcl (GEODON) 80 Mg Capsule, 1 CAP PO BID for SCHIZOPHRENIA, #60 CAP 1 Refill 12/05/18 Triamcinolone Acetonide (TRIAMCINOLONE ACETONIDE 0.025% CREAM) 15 Gm Cream..g., 1 GRETEL TP PRN BID PRN for SKIN CONDITION, #30 GM APPLY TO RLE TOPICALLY NEEDED AND APPLY COMPRESSION WRAP 12/05/18 Polyethylene Glycol 3350 (POLYETHYLENE GLYCOL 3350) 2,500 Gm Powder, 17 GM PO PRN Q12HRS PRN for CONSTIPATION, #527 GM 11 Refills 12/05/18 Pantoprazole Sodium (PROTONIX) 20 Mg Tablet.dr, 40 MG PO DAILY for GERD, TAB 12/05/18 Multivitamin (MULTIVITAMINS) 1 Each Tablet, 1 TAB PO DAILY for HEALTH MAINTENANCE, #90 TAB 3 Refills 12/05/18 Loxapine Succinate (LOXAPINE) 5 Mg Capsule, 5 MG PO PRN Q12HRS PRN for AGITATION, CAP 12/05/18 Loxapine Succinate (LOXAPINE) 10 Mg Capsule, 10 MG PO HS for AGITATION, CAP GIVE 3 CAPSULE BY MOUTH AT BEDTIME FOR AGITATION 12/05/18 Lisinopril (LISINOPRIL) 20 Mg Tablet, 20 MG PO DAILY for FOR HYPERTENSION, #30 TAB 0 Refills HOLD FOR SBP < 110 12/05/18 Ferrous Sulfate (FERROUS SULFATE) 325 Mg Tablet, 1 TAB PO DAILY for ANEMIA, #30 TAB 3 Refills 12/05/18 Enoxaparin Sodium (LOVENOX) 40 Mg/0.4 Ml Disp.syrin, 40 MG SQ DAILY for ANTI- COAGULANT, DIS.SYR 12/05/18 Carvedilol (CARVEDILOL) 25 Mg Tablet, 25 MG PO BIDWMEALS for CARDIAC, TAB hold for SBP < 110 and pulse < 40 12/05/18 Benzonatate (BENZONATATE) 100 Mg Capsule, 1 CAP PO TID for cough, #30 CAP 12/05/18 Discontinued Reported Medications Amoxicillin/Potassium Clav (AMOX TR-K CLV 875-125 MG TAB) 1 Each Tablet, 1 TAB PO BID for pneumonia for 4 Days, #8 TAB 12/05/18 ELICEO CHIU MD Dec 08, 2018 09:08
[2018-12-08] MEDS: ASCORBIC ACID 500 MG TABLET PO SCH (10:07)
[2018-12-08] MEDS: MULTIVITAMIN with MINERAL TABLET. PO SCH (10:07)
[2018-12-08] MEDS: BENZONATATE 100 MG CAPSULE. PO SCH (10:07)
[2018-12-08] MEDS: FAMOTIDINE 20 MG TABLET. PO SCH (10:07)
[2018-12-08] MEDS: FERROUS SULFATE 325 MG TABLET. PO SCH (10:08)
[2018-12-08] MEDS: CARVEDILOL 12.5 MG TABLET. PO SCH (10:09)
[2018-12-08] MEDS: LACTOBACILLUS RHAMNOSUS GG 1 CAPSULE. PO SCH (10:10)
[2018-12-08] MEDS: LISINOPRIL 20 MG TABLET PO SCH (10:10)
[2018-12-08] MEDS: FUROSEMIDE 40 MG/4 ML VIAL. IVP SCH (10:11)
[2018-12-08] MEDS: ENOXAPARIN 40 MG/0.4 ML SYRINGE. SQ SCH (10:15)
[2018-12-08 11:00] VITALS: BP 94/65
--- NOTE | 2018-12-08 11:37 | PDOC ---
PROGRESS NOTES Chief Complaint Chief Complaint Acute encephalopathy Acute hypercapnic respiratory failure Acute hypoxic respiratory failure UTI, ropcephin schizophrenia severe malnutrition weakness and debility, will need PT and OT eval s/p left AKA amputation Anemia of chronic disease History of Present Illness History of Present Illness He is still coughing Asks for a second agent CXR shows some scarring vs new infiltrates HE has been getting IV abx by prev hosptalist [facility] Urine cx neg BC neg NEeded BIPAP O\n 2 LNC at [facility]: CT chest, if abN - consult Pulmo - dw Dr Garcia IF neg can go back to [facility] today Dw RN Ema \Add robitussin, make VARSHA Vitals Vitals Vital Signs Date Time Temp Pulse Resp B/P (MAP) Pulse Ox O2 Delivery O2 Flow Rate FiO2 12/08/18 11:00 97.6 71 18 94/65 (75) 97 Nasal Cannula 2.0 97.6 Physical Exam General: Alert, Cooperative, No acute distress Heart: Regular rate Lungs: Other (Right basilar rhonchi) Abdomen: Normal bowel sounds, Soft Extremities: No cyanosis, No edema, Normal pulses, Other (left AKA) Skin: No breakdown Review of Systems Review of Systems cough, weak, rest of 14 pt neg Assessment and Plan Assessmemt and Plan Problems Medical Problems: (1) Abnormal chest xray Status: Acute (2) Acute hypercapnic respiratory failure Status: Acute (3) Acute metabolic encephalopathy Status: Acute (4) Altered mental status Status: Acute (5) CHF (congestive heart failure) Status: Acute Comment Review of Relevant I have reviewed the following items nir (where applicable) has been applied. Labs Laboratory Tests Test 12/06/18 22:35 12/07/18 05:00 Glucose (Fingerstick) 109 mg/dL (70-99) Vancomycin Level Trough 10.3 mcg/mL (10.0-20.0) Vancomycin Last Dose Date 12/06/18 Vancomycin Last Dose Time 0530 Microbiology 12/05/18 Urine Culture - Final, Complete 12/05/18 Urine Culture Result 1 (ART) - Final, Complete Medications Current Medications Ceftriaxone Sodium (Rocephin) 1 gm 1X ONCE IVP Last administered on 12/05/18at 01:30; Start 12/05/18 at 01:30; Stop 12/05/18 at 01:31; Status DC Levofloxacin/ Dextrose 150 ml @ 100 mls/hr 1X ONCE IV Last administered on 12/05/18at 02:50; Start 12/05/18 at 02:30; Stop 12/05/18 at 03:59; Status DC Vancomycin HCl (Vanco Per Pharmacy) 1 each PRN DAILY PRN MC SEE COMMENTS Last administered on 12/07/18at 06:50; Start 12/05/18 at 02:30; Stop 12/08/18 at 09:06; Status DC Furosemide (Lasix) 40 mg 1X ONCE IVP Last administered on 12/05/18at 02:50; Start 12/05/18 at 02:30; Stop 12/05/18 at 02:31; Status DC Vancomycin HCl 1.25 gm/Sodium Chloride 250 ml @ 166.667 mls/hr 1X ONCE IV Last administered on 12/05/18at 05:27; Start 12/05/18 at 03:00; Stop 12/05/18 at 04:29; Status DC Ondansetron HCl (Zofran) 4 mg PRN Q8HRS PRN IV NAUSEA/VOMITING; Start 12/05/18 at 03:15; Stop 12/06/18 at 03:14; Status DC Acetaminophen (Tylenol) 650 mg PRN Q4HRS PRN PO FEVER; Start 12/05/18 at 03:15; Stop 12/06/18 at 03:14; Status DC Albuterol/ Ipratropium (Duoneb) 3 ml RTQID NEB Last administered on 12/05/18at 16:46; Start 12/05/18 at 08:00; Stop 12/06/18 at 07:59; Status DC Furosemide (Lasix) 40 mg DAILY IVP Last administered on 12/08/18at 10:11; Start 12/05/18 at 09:00 Vancomycin HCl 1 gm/Sodium Chloride 250 ml @ 250 mls/hr Q24H IV Last administered on 12/08/18at 06:38; Start 12/06/18 at 05:30; Stop 12/08/18 at 09:06; Status DC Vancomycin HCl (Vancomycin Trough Level) 1 each 1X ONCE MC Last administered on 12/07/18at 05:00; Start 12/07/18 at 05:00; Stop 12/07/18 at 05:01; Status DC Albuterol Sulfate (Ventolin Neb Soln) 2.5 mg RTQID NEB Last administered on 12/08/18 07:26; Start 12/05/18 at 12:00 Benzonatate (Tessalon Perle) 100 mg TID PO Last administered on 12/08/18 10:07; Start 12/05/18 at 12:00 Enoxaparin Sodium (Lovenox 40mg Syringe) 40 mg DAILY SQ Last administered on 12/08/18 10:15; Start 12/05/18 at 11:00 Ferrous Sulfate (Feosol) 325 mg DAILY PO Last administered on 12/08/18 10:08; Start 12/05/18 at 11:00 Lisinopril (Prinivil) 20 mg DAILY PO Last administered on 12/08/18 10:10; Start 12/05/18 at 11:00 Loxapine Succinate (Loxitane) 5 mg PRN Q12HRS PRN PO AGITATION; Start 12/05/18 at 10:15 Carvedilol (Coreg) 25 mg BIDWMEALS PO Last administered on 12/08/18 10:09; Start 12/05/18 at 11:00 Loxapine Succinate (Loxitane) 10 mg QHS PO Last administered on 12/07/18 22:04; Start 12/05/18 at 21:00 Multivitamins (Thera M Plus) 1 tab DAILY PO Last administered on 12/08/18 10:07; Start 12/05/18 at 11:00 Pantoprazole Sodium (Protonix) 40 mg DAILYAC PO Last administered on 12/05/18 11:15; Start 12/05/18 at 11:00; Stop 12/05/18 at 15:53; Status DC Polyethylene Glycol (miraLAX PACKET) 17 gm PRN Q12HRS PRN PO CONSTIPATION; Start 12/06/18 at 10:22 Triamcinolone Acetonide (Kenalog 0.1%) 1 gemini PRN BID PRN TP SKIN CONDITION; Start 12/05/18 at 21:00 Ziprasidone (Geodon) 80 mg BID PO Last administered on 12/07/18 22:04; Start 12/05/18 at 11:00 Ceftriaxone Sodium (Rocephin) 1 gm Q24H IVP Last administered on 10/6/19at 22:04; Start 12/05/18 at 21:00; Stop 12/08/18 at 09:06; Status DC Ascorbic Acid (Vitamin C) 500 mg DAILY PO Last administered on 12/08/18at 10:07; Start 12/05/18 at 14:00 Lactobacillus Rhamnosus (Culturelle) 1 cap BID PO Last administered on 12/08/18at 10:10; Start 12/05/18 at 21:00 Famotidine (Pepcid) 20 mg BID PO Last administered on 12/08/18at 10:07; Start 12/05/18 at 21:00 Guaifenesin (Robitussin Dm) 10 ml QID PO ; Start 12/08/18 at 12:00 Active Scripts Active Bactrim Ds Tablet (Sulfamethoxazole/Trimethoprim) 1 Each Tablet 1 Tab PO BID Reported Albuterol Sulfate Neb Soln (Albuterol Sulfate) 2.5 Mg/3 Ml Vial.neb 2.5 Mg NEB QID Geodon (Ziprasidone Hcl) 80 Mg Capsule 1 Cap PO BID Triamcinolone Acetonide 0.025% Cream (Triamcinolone Acetonide) 15 Gm Cream..g. 1 Gemini TP PRN BID PRN APPLY TO RLE TOPICALLY NEEDED AND APPLY COMPRESSION WRAP Polyethylene Glycol 3350 2,500 Gm Powder 17 Gm PO PRN Q12HRS PRN Protonix (Pantoprazole Sodium) 20 Mg Tablet.dr 40 Mg PO DAILY Multivitamins (Multivitamin) 1 Each Tablet 1 Tab PO DAILY Loxapine (Loxapine Succinate) 5 Mg Capsule 5 Mg PO PRN Q12HRS PRN Loxapine (Loxapine Succinate) 10 Mg Capsule 10 Mg PO HS GIVE 3 CAPSULE BY MOUTH AT BEDTIME FOR AGITATION Lisinopril 20 Mg Tablet 20 Mg PO DAILY HOLD FOR SBP < 110 Ferrous Sulfate 325 Mg Tablet 1 Tab PO DAILY Lovenox (Enoxaparin Sodium) 40 Mg/0.4 Ml Disp.syrin 40 Mg SQ DAILY Carvedilol 25 Mg Tablet 25 Mg PO BIDWMEALS hold for SBP < 110 and pulse < 40 Benzonatate 100 Mg Capsule 1 Cap PO TID Vitals/I & O Vital Sign - Last 24 Hours 12/07/18 12/07/18 12/07/18 12/07/18 15:00 15:00 19:00 20:00 Temp 98.0 98.2 98.0 98.2 Pulse 68 82 Resp 18 18 B/P (MAP) 98/48 (65) 109/53 (71) Pulse Ox 100 93 O2 Delivery Room Air Room Air Nasal Cannula Nasal Cannula O2 Flow Rate 2.0 3.0 12/07/18 12/08/18 12/08/18 12/08/18 23:00 03:00 07:00 07:28 Temp 97.6 98.4 97.9 97.6 98.4 97.9 Pulse 89 85 63 Resp 18 18 18 B/P (MAP) 117/66 (83) 98/60 (73) 117/71 (86) Pulse Ox 99 99 98 95 O2 Delivery Nasal Cannula Nasal Cannula Nasal Cannula Nasal Cannula O2 Flow Rate 2.0 2.0 2.0 2.0 12/08/18 12/08/18 12/08/18 12/08/18 08:00 10:09 10:10 10:54 Pulse 63 63 B/P (MAP) 117/71 117/71 O2 Delivery Nasal Cannula Nasal Cannula O2 Flow Rate 3.0 3.0 12/08/18 11:00 Temp 97.6 97.6 Pulse 71 Resp 18 B/P (MAP) 94/65 (75) Pulse Ox 97 O2 Delivery Nasal Cannula O2 Flow Rate 2.0 Intake and Output 12/07/18 12/07/18 12/08/18 15:00 23:00 07:00 Intake Total 120 ml 200 ml Output Total 2000 ml 900 ml Balance 120 ml -1800 ml -900 ml Nutrition Consultation Dietary Evaluation: Recommendations by RD: Increase Calorie Intake, Protein supplementation Comments: Continue w/regular diet, honor food preferences, and provide snacks as requested REC Ensure TID (strawberry) REC continue w/MVI, Vit C - wound healing Expected Outcomes/Goals: PO intake >75% est needs Malnutrition Findings: Muscle Mass (Severe): Severe Depletion Body Fat Depletion (Non Severe: Mod to Severe Weight Status: Emaciated ELICEO CHIU MD Dec 08, 2018 11:37
[2018-12-08] MEDS ORDERED: IOHEXOL 300 MG/ML 100ML VIAL. IV ONE (11:45)
--- NOTE | 2018-12-08 11:45 | NUR ---
Patient refusing CHG Bath and Nozin. Also refusing noon medications.
[2018-12-08] MEDS ORDERED: guaiFENesin DM 200MG/20MG 10 ML SYRUP PO SCH (12:00)
[2018-12-08] MEDS ORDERED: CONTRAST GIVEN. MC PRN (12:00)
--- NOTE | 2018-12-08 12:03 | PDOC3 ---
Discharge Summary Visit Information Date of Admission: Dec 05, 2018 Date of Discharge: Dec 08, 2018 Admitting Diagnosis Comment: Acute encephalopathy Acute hypercapnic respiratory failure Acute hypoxic respiratory failure UTI, ropcephin schizophrenia severe malnutrition weakness and debility, will need PT and OT eval s/p left AKA amputation Anemia of chronic disease Final Diagnosis Problems Medical Problems: (1) Abnormal chest xray Status: Acute (2) Acute hypercapnic respiratory failure Status: Acute (3) Acute metabolic encephalopathy Status: Acute (4) Altered mental status Status: Acute (5) CHF (congestive heart failure) Status: Acute Brief Hospital Course Allergies Allergies Coded Allergies Type Severity Reaction Last Updated Verified chlorpromazine Allergy Intermediate 12/05/18 Yes haloperidol Allergy Intermediate 12/05/18 Yes trazodone Allergy Intermediate 12/05/18 Yes Vital Signs Vital Signs Date Time Temp Pulse Resp B/P (MAP) Pulse Ox O2 Delivery O2 Flow Rate FiO2 12/08/18 11:00 97.6 71 18 94/65 (75) 97 Nasal Cannula 2.0 97.6 Lab Results Laboratory Tests Test 12/06/18 22:35 12/07/18 05:00 Glucose (Fingerstick) 109 mg/dL (70-99) Vancomycin Level Trough 10.3 mcg/mL (10.0-20.0) Vancomycin Last Dose Date 12/06/18 Vancomycin Last Dose Time 0530 Brief Hospital Course Mr. Valentine is a 73 old male resident of [facility] came in confused and in respi failure needing BIPAP, CXR shwos some chronic findings but new infiltartes could not be excluded, HE continues to cough, But he does not want to pursue further eval with CT chest, HE has indwelling supra pubic cath with neg urine cx Dc today SNU, with PO bactrim on chart 2 notes today [place] [facility] consults: none CONFUSION RESOLVED< back to baseline Discharge Information Condition at Discharge: Improved, Stable Disposition/Orders: Other (snu) Scheduled Albuterol Sulfate (Albuterol Sulfate Neb Soln) 2.5 Mg/3 Ml Vial.neb, 2.5 MG NEB QID for SHORT OF AIR, Ref 0 (Reported) Entered as Reported by: KAT MADRID on 12/05/18 0430 Last Action: Continued on 12/05/18 1015 by JUAN C MEDEIROS Benzonatate (Benzonatate) 100 Mg Capsule, 1 CAP PO TID for cough, #30 (Reported) Entered as Reported by: KAT MADRID on 12/05/18429 Last Action: Continued on 12/05/181014 by JUAN C MEDEIROS Carvedilol (Carvedilol) 25 Mg Tablet, 25 MG PO BIDWMEALS for CARDIAC, (Reported) hold for SBP < 110 and pulse < 40 Entered as Reported by: KAT MADRID on 12/05/18429 Last Action: Converted on 12/05/181014 by JUAN C MEDEIROS Enoxaparin Sodium (Lovenox) 40 Mg/0.4 Ml Disp.syrin, 40 MG SQ DAILY for ANTI- COAGULANT, (Reported) Entered as Reported by: KAT MADRID on 12/05/18429 Last Action: Continued on 12/05/181014 by JUAN C MEDEIROS Ferrous Sulfate (Ferrous Sulfate) 325 Mg Tablet, 1 TAB PO DAILY for ANEMIA, #30 Ref 3 (Reported) Entered as Reported by: KAT MADRID on 12/05/18429 Last Action: Continued on 12/05/181014 by JUAN C MEDEIROS Lisinopril (Lisinopril) 20 Mg Tablet, 20 MG PO DAILY for FOR HYPERTENSION, #30 Ref 0 (Reported) HOLD FOR SBP < 110 Entered as Reported by: KAT MADRID on 12/05/18429 Last Action: Continued on 12/05/181014 by JUAN C MEDEIROS Loxapine Succinate (Loxapine) 10 Mg Capsule, 10 MG PO HS for AGITATION, (Reported) GIVE 3 CAPSULE BY MOUTH AT BEDTIME FOR AGITATION Entered as Reported by: KAT MADRID on 12/05/18429 Last Action: Converted on 12/05/181014 by JUAN C MEDEIROS Multivitamin (Multivitamins) 1 Each Tablet, 1 TAB PO DAILY for HEALTH MAINTENANCE, #90 Ref 3 (Reported) Entered as Reported by: KAT MADRID on 12/05/18429 Last Action: Converted on 12/05/181014 by JUAN C MEDEIROS Pantoprazole Sodium (Protonix) 20 Mg Tablet.dr, 40 MG PO DAILY for GERD, (Reported) Entered as Reported by: KAT MADRID on 12/05/18429 Last Action: Converted on 12/05/181014 by JUAN C MEDEIROS Sulfamethoxazole/Trimethoprim (Bactrim Ds Tablet) 1 Each Tablet, 1 TAB PO BID for abx, #10 Prescribed by: ELICEO CHIU on 12/08/18 0907 Ziprasidone Hcl (Geodon) 80 Mg Capsule, 1 CAP PO BID for SCHIZOPHRENIA, #60 Ref 1 (Reported) Entered as Reported by: KAT MADRID on 12/05/18429 Last Action: Converted on 12/05/181014 by JUAN C MEDEIROS Scheduled PRN Loxapine Succinate (Loxapine) 5 Mg Capsule, 5 MG PO PRN Q12HRS PRN for AGITATION, (Reported) Entered as Reported by: KAT MADRID on 12/05/18429 Last Action: Continued on 12/05/181014 by JUAN C MEDEIROS Polyethylene Glycol 3350 (Polyethylene Glycol 3350) 2,500 Gm Powder, 17 GM PO PRN Q12HRS PRN for CONSTIPATION, #527 Ref 11 (Reported) Entered as Reported by: KAT MADRID on 12/05/18429 Last Action: Converted on 12/05/181014 by JUAN C MEDEIROS Triamcinolone Acetonide (Triamcinolone Acetonide 0.025% Cream) 15 Gm Cream..g., 1 GRETEL TP PRN BID PRN for SKIN CONDITION, #30 (Reported) APPLY TO RLE TOPICALLY NEEDED AND APPLY COMPRESSION WRAP Entered as Reported by: KAT MADRID on 12/05/18429 Last Action: Converted on 12/05/181014 by JUAN C MEDEIROS Discontinued Medications Amoxicillin/Potassium Clav (Amox Tr-K Clv 875-125 Mg Tab) 1 Each Tablet, 1 TAB PO BID for pneumonia for 4 Days, #8 (Reported) Entered as Reported by: KAT MADRID on 12/05/18429 Last Action: HELD on 12/05/181014 by ELICEO LEHMAN MD Dec 08, 2018 12:03
--- NOTE | 2018-12-08 13:25 | NUR ---
Discharge Note: JOSE MOODY Discharge instructions and discharge home medications reviewed with Other facility and a copy given. All questions have been answered and understanding verbalized. The following instructions and handouts were given: Discharge Instructions, Prescription. Discontinued lines and drains: PIV removed, Catheter intact. Patient discharged to [facility] with Skilled Care via Facility Transport
== END 2018-12-08 13:32 | DRG 189 ==
LOC: ER 23:28 → 2 NORTH 12-05 01:30 → 4 NORTH 12-05 14:30
PROVIDERS: ADMIT Internal Medicine; ATTEND Internal Medicine
PROC: 5A09357 Assistance with Respiratory Ventilation, Less than 24 Consecutive Hours, Continuous Positive Airway Pressure (ICD-10-PCS; principal; 2018-12-05)
DX: J96.02 Acute respiratory failure with hypercapnia (principal); G93.41 Metabolic encephalopathy; E43 Unspecified severe protein-calorie malnutrition; N39.0 Urinary tract infection, site not specified; J96.01 Acute respiratory failure with hypoxia; I50.9 Heart failure, unspecified; I11.0 Hypertensive heart disease with heart failure; F32.9 Major depressive disorder, single episode, unspecified; D63.8 Anemia in other chronic diseases classified elsewhere; F03.90 Unspecified dementia, unspecified severity, without behavioral disturbance, psychotic disturbance, mood disturbance, and anxiety; F20.9 Schizophrenia, unspecified; F43.10 Post-traumatic stress disorder, unspecified; F60.3 Borderline personality disorder; J45.909 Unspecified asthma, uncomplicated; Z89.612 Acquired absence of left leg above knee; Z88.8 Allergy status to other drugs, medicaments and biological substances; Z79.899 Other long term (current) drug therapy
CPT/HCPCS: 36415; 36600; 70450; 71045; 80053; 80202; 81001; 82805; 82962; 83605; 83880; 84145; 85025; 87086; 94640; 94660; 96374; 96375; J0696; J1650; J1940; J1956; J3370; J7050; J7613; J7620; 99291-25; G0378; J7030

== ENCOUNTER 2019-03-18 05:53 | Inpatient (IN) | payer MEDICARE, OTHER ==
[2019-03-18] VITALS (14 sets, daily range): BP systolic 102–171; BP diastolic 62–95
[~2019-03-18] VITALS: Ht 172.7 cm; Wt 50.0 kg
[~2019-03-18 05:53] MED LIST: ALBU2.5V5 NEB; AMOX1TAB11 PO; BENZ-8 PO; CARV25TA2 PO; ENOX40DI SQ; FERR325T14 PO; LISI-334 PO; LOXA10CA PO; LOXA5CAP PO; MULT1TAB52 PO; PANT20TA2 PO; POLY2500 PO; SULF1TAB24 PO; TRIA15CR2 TP; ZIPR80CA2 PO
--- NOTE | 2019-03-18 06:26 | PHYS DOC ---
Past Medical History Past Medical History: Anemia, Hypertension, Schizophrenia Additional Past Medical Histor: PTSD,BORDERLINE PERSONALITY,ACUTE RESP FAILURE,PARANOID Past Surgical History: Other Additional Past Surgical Histo: L LEG AMPUTATION Alcohol Use: None Drug Use: None Adult General Chief Complaint Chief Complaint: WEAKNESS/GENERALIZED HPI HPI 73-year-old gentleman presenting the emergency department today with altered mental status reported by the retirement facility. This all started overnight last seen well at around 1:00 AM. On arrival the patient is alert and oriented so it is unclear what his baseline typically is. He denies any pain but feels generally weak. This all started over the past 24 hours. He denies any focal weakness. He denies any fevers chills. Review of systems is negative for chest pain abdominal pain vomiting fevers, neck stiffness back pain. All other review of systems negative. ED course: 73-year-old male presenting emergency department today with intermittent confusion. Patient is afebrile with a normal heart rate here. Res piratory rate is increased. Patient's oxygen requirement is at baseline according to the nurse he took report from EMS. Blood pressure is elevated. EKG obtained and reviewed by myself shows sinus rhythm with a regular rate. ST segments show some repolarization likely secondary to LVH. Not suggestive of acute active ischemia. ABG obtained which shows hypercapnic respiratory failure. Patient was placed on BiPAP. Urinalysis suggestive of infection. Patient was given IV Zosyn here in the emergency department. ProBNP is elevated from previous. WBC is elevated. Head CT and chest x-ray are unremarkable. We will admit for IV antibiotics and hypercapnic respiratory failure. I spoke with Dr. Antionette Russell's of suspicion for admission. Review of Systems Review of Systems Current Medications Current Medications Current Medications Medications (Trade) Dose Ordered Sig/Paige Start Time Stop Time Status Last Admin Dose Admin Piperacillin Sod/ Tazobactam Sod 3.375 gm/Sodium Chloride 50 ml @ 100 mls/hr 1X ONCE 03/18/19 07:30 03/18/19 07:59 DC 03/18/19 08:01 100 MLS/HR Allergies Allergies Allergies Coded Allergies Type Severity Reaction Last Updated Verified chlorpromazine Allergy Intermediate 12/05/18 Yes haloperidol Allergy Intermediate 12/05/18 Yes trazodone Allergy Intermediate 12/05/18 Yes Physical Exam Physical Exam Constitutional: Well developed, well nourished, no acute distress, non-toxic appearance. [] HENT: Normocephalic, atraumatic, bilateral external ears normal, oropharynx moist, no oral exudates, nose normal. [] Eyes: PERRLA, EOMI, conjunctiva normal, no discharge. [] Neck: Normal range of motion, no tenderness, supple, no stridor. [] Cardiovascular:Heart rate regular rhythm, no murmur [] Lungs & Thorax: Bilateral breath sounds clear to auscultation [] Abdomen: Bowel sounds normal, soft, no tenderness, no masses, no pulsatile masses. [] Skin: Warm, dry, no erythema, no rash. [] Back: No tenderness, no CVA tenderness. [] Extremities: No tenderness, patient has an [id number] a petition of the left lower extremity. He has 2 covered wounds on his anterior armijo and his toes. They appear in good condition without erythema or purulence. overlying skin is intact. Otherwise the extremities are neurovascularly intact nontender at the joints and not warm to touch. Neurologic: Mental status: Alert and oriented to person and place Cranial nerves: Extraocular movements intact, eyebrows lynette bilaterally, smile symmetric, uvula elevation nl, shoulder shrug intact bilaterally, tongue protrusion normal DTRs: 2+ Sensation: equal and normal in all extremities Strength: 5/5 in upper and lower extremities bilaterally Psychologic: Affect normal, judgement normal, mood normal. [] Current Patient Data Vital Signs Vital Signs Date Time Temp Pulse Resp B/P (MAP) Pulse Ox O2 Delivery O2 Flow Rate FiO2 03/18/19 07:06 98 BiPAP/CPAP 03/18/19 05:54 97.6 80 32 167/94 (118) 4.0 97.6 Lab Values Laboratory Tests Test 03/18/19 06:10 03/18/19 06:15 03/18/19 06:18 Urine Collection Type Unknown Urine Color Yellow Urine Clarity Cloudy Urine pH 6.0 Urine Specific [place] 1.020 Urine Protein 100 mg/dL (NEG-TRACE) Urine Glucose (UA) Negative mg/dL (NEG) Urine Ketones (Stick) Trace mg/dL (NEG) Urine Blood Small (NEG) Urine Nitrite Positive (NEG) Urine Bilirubin Negative (NEG) Urine Urobilinogen Dipstick 1.0 mg/dL (0.2 mg/dL) Urine Leukocyte Esterase Large (NEG) Urine RBC 0 /HPF (0-2) Urine WBC Tntc /HPF (0-4) Urine Squamous Epithelial Cells Occ /LPF Urine Bacteria Many /HPF (0-FEW) White Blood Count 14.4 x10^3/uL (4.0-11.0) H Red Blood Count 4.24 x10^6/uL (4.30-5.70) L Hemoglobin 9.6 g/dL (13.0-17.5) L Hematocrit 33.0 % (39.0-53.0) L Mean Corpuscular Volume 78 fL (79-100) L Mean Corpuscular Hemoglobin 23 pg (25-35) L Mean Corpuscular Hemoglobin Concent 29 g/dL (31-37) L Red Cell Distribution Width 16.6 % (11.5-14.5) H Platelet Count 636 x10^3/uL (140-400) H Neutrophils (%) (Auto) 90 % (31-73) H Lymphocytes (%) (Auto) 4 % (24-48) L Monocytes (%) (Auto) 5 % (0-9) Eosinophils (%) (Auto) 0 % (0-3) Basophils (%) (Auto) 0 % (0-3) Neutrophils # (Auto) 13.0 x10^3/uL (1.8-7.7) H Lymphocytes # (Auto) 0.6 x10^3/uL (1.0-4.8) L Monocytes # (Auto) 0.8 x10^3/uL (0.0-1.1) Eosinophils # (Auto) 0.0 x10^3/uL (0.0-0.7) Basophils # (Auto) 0.0 x10^3/uL (0.0-0.2) Platelet Estimate Pending Sodium Level 139 mmol/L (136-145) Potassium Level 5.0 mmol/L (3.5-5.1) Chloride Level 98 mmol/L (98-107) Carbon Dioxide Level 39 mmol/L (21-32) H Anion Gap 2 (6-14) L Blood Urea Nitrogen 19 mg/dL (8-26) Creatinine 0.8 mg/dL (0.7-1.3) Estimated GFR (Cockcroft-Gault) 115.3 Glucose Level 91 mg/dL (70-99) Calcium Level 9.6 mg/dL (8.5-10.1) Total Bilirubin 0.3 mg/dL (0.2-1.0) Direct Bilirubin 0.2 mg/dL (0.0-0.2) Aspartate Amino Transferase (AST) 26 U/L (15-37) Alanine Aminotransferase (ALT) 20 U/L (16-63) Alkaline Phosphatase 107 U/L (46-116) Troponin I Quantitative < 0.017 ng/mL (0.000-0.055) FJ-Mrr-J-Type Natriuretic Peptide 6063 pg/mL (0-124) H Total Protein 7.7 g/dL (6.4-8.2) Albumin 2.5 g/dL (3.4-5.0) L Lipase 35 U/L (73-393) L O2 Saturation 96 % (92-99) Arterial Blood pH 7.27 (7.35-7.45) L Arterial Blood pCO2 at Patient Temp 96 mmHg (35-46) *H Arterial Blood pO2 at Patient Temp 97 mmHg (65-108) Arterial Blood HCO3 43 mmol/L (21-28) H Arterial Blood Base Excess 13 mmol/L (-3-3) H FiO2 36 Laboratory Tests 03/18/19 06:15 Laboratory Tests 03/18/19 06:15 EKG EKG [] Radiology/Procedures Radiology/Procedures [] Course & Med Decision Making Course & Med Decision Making Pertinent Labs and Imaging studies reviewed. (See chart for details) [] Dragon Disclaimer Dragon Disclaimer This electronic medical record was generated, in whole or in part, using a voice recognition dictation system. Departure Departure Impression: Primary Impression: Generalized weakness Additional Impressions: UTI (urinary tract infection) Acute hypercapnic respiratory failure Leg wound, right Altered mental status Disposition: ADMITTED INPATIENT Condition: GUARDED Referrals: HEIKE VIRGEN DO (PCP) Critical Care Time Critical care time spent was 45 minutes exclusive of procedures. Time was spent evaluating the patient, ordering the administration of medications, reevaluating the patient, discussing with the admitting provider and documenting. Problem Qualifiers REX GENTILE MD Mar 18, 2019 06:26
[2019-03-18 06:42] LABS: CALCIUM 9.6 mg/dL (8.5-10.1); CREATININE 0.8 mg/dL (0.7-1.3); GFR 115.3
[2019-03-18 06:48] LABS: BILIRUBIN,URINE NEGATIVE (NEG); CLARITY,URINE CLOUDY; COLOR,URINE YELLOW; NITRITE,URINE POSITIVE (NEG); PROTEIN,URINE 100 mg/dL (NEG-TRACE)
[2019-03-18 06:48] LABS: ALBUMIN 2.5 g/dL (3.4-5.0); DIRECT BILIRUBIN 0.2 mg/dL (0.0-0.2); TOTAL BILIRUBIN 0.3 mg/dL (0.2-1.0); TOTAL PROTEIN 7.7 g/dL (6.4-8.2)
[2019-03-18 06:54] LABS: BASO % 0 % (0-3); EOS % 0 % (0-3); HEMOGLOBIN 9.6 g/dL (13.0-17.5); LYMPH # 0.6 x10^3/uL (1.0-4.8); LYMPH % 4 % (24-48); MEAN CORPUSCULAR HEMOGLOBIN 23 pg (25-35); MEAN CORPUSCULAR HGB CONC 29 g/dL (31-37); MEAN CORPUSCULAR VOLUME 78 fL (79-100); MONO # 0.8 x10^3/uL (0.0-1.1); MONO % 5 % (0-9); NEUT % 90 % (31-73); PLATELET COUNT 636 x10^3/uL (140-400); RED BLOOD COUNT 4.24 x10^6/uL (4.30-5.70); RED CELL DISTRIBUTION WIDTH 16.6 % (11.5-14.5); WHITE BLOOD COUNT 14.4 x10^3/uL (4.0-11.0)
[2019-03-18 06:56] LABS: BASE EXCESS ABG 13 mmol/L (-3-3); HCO3 ABG 43 mmol/L (21-28); PO2 ABG 97 mmHg (65-108); SAT O2 ABG 96 % (92-99)
[2019-03-18 06:58] LABS: FIO2 ABG 36; PCO2 ABG 96 mmHg (35-46)
[2019-03-18 07:01] LABS: BACTERIA,URINE MANY /HPF (0-FEW); RBC,URINE 0 /HPF (0-2); SQUAMOUS EPITHELIAL CELL,UR OCC /LPF; WBC,URINE TNTC /HPF (0-4)
[2019-03-18] MEDS ORDERED: PIPERACILLIN/TAZOBACTAM 3.375 GM in IV NORMAL SALINE 50ML 50 ML IV ONE (07:30)
--- NOTE | 2019-03-18 07:49 | RAD ---
AP portable chest radiograph 03/18/2019 Clinical History: History of lung infiltrates. An AP erect portable digital radiograph of the chest was obtained. Comparison study is dated 12/05/2018. The cardiac silhouette is mildly enlarged. The thoracic aorta is mildly tortuous. Areas of probable scarring are seen scattered throughout both lungs particularly involving the left upper lobe and right lower lobe. These are unchanged. No area of consolidation is seen. No pneumothorax or pleural effusion is noted. Mild S-shaped curvature of the thoracolumbar spine is seen. Degenerative changes are seen involving the thoracic spine along with both shoulders. IMPRESSION: No area of consolidation is seen. Electronically signed by: Willis Hand MD (03/18/2019 7:46 AM) [facility]
--- NOTE | 2019-03-18 07:52 | RAD ---
EXAM: CT Head without IV contrast INDICATION: Intermittent confusion TECHNIQUE: Multi-detector row CT images were obtained of the head without the use of IV contrast. All CT scans performed at this facility utilize dose optimization techniques as appropriate to the exam, including the following: Automated exposure control and adjustment of the mA and/or KV according to patient size (this includes techniques or standardized protocols for targeted exams where dose is indication/reason for exam). DLP 1167.3 mGycm COMPARISON: None FINDINGS: BRAIN PARENCHYMA: No evidence of acute intraparenchymal hemorrhage or infarct. There is mild generalized parenchymal volume loss and mild white matter low density compatible chronic ischemic microvascular change. VENTRICLES & EXTRA-AXIAL SPACES: Ventricles are within normal limits. Basilar cisterns are patent. No pathologic extra-axial fluid collection or mass. ORBITS: Orbital contents are unremarkable. SINUSES: Visualized paranasal sinuses and mastoid air cells are clear. OSSEOUS & SOFT TISSUES: Calvarium and skull base are intact. IMPRESSION: 1. No acute intracranial pathology. 2. Minimal atrophy and white matter changes compatible with chronic ischemic microvascular change Electronically signed by: Jc Villafuerte MD (03/18/2019 7:50 AM) [facility]
--- NOTE | 2019-03-18 08:03 | EKG ---
[facility] [address] [place] [address] Test Date: 2019-03-18 Test Time: 06:26:02 Pat Name: JOSE MOODY Department: Room: Gender: M [employer]: : [id number] Requested By: REX GENTILE Order Number: [id number] Reading MD: Measurements Intervals [place] Rate: 81 P: 55 MI: 102 QRS: 64 QRSD: 114 T: 112 QT: 404 QTc: 470 Interpretive Statements SINUS RHYTHM LVH WITH REPOLARIZATION ABNORMALITY ABNORMAL ECG RI6.01 No previous ECG available for comparison
[2019-03-18 08:49] LABS: BASE EXCESS ABG 13 mmol/L (-3-3); HCO3 ABG 42 mmol/L (21-28); PO2 ABG 85 mmHg (65-108); SAT O2 ABG 95 % (92-99)
[2019-03-18 08:52] LABS: FIO2 ABG 40; PCO2 ABG 88 mmHg (35-46)
[2019-03-18] MEDS ORDERED: IV NORMAL SALINE 500ML BAG 500 ML IV ONE (09:00)
[2019-03-18] MEDS ORDERED: FLUT9.9S NS (10:12)
[2019-03-18] MEDS ORDERED: GUAI100L34 PO (10:12)
[2019-03-18] MEDS ORDERED: ZINC56.7 TP (10:12)
[2019-03-18 10:41] LABS: % BANDS 3 % (0-9); % LYMPHS 2 % (24-48); % MONOS 6 % (0-10); % SEGS 89 % (35-66)
[2019-03-18 10:42] LABS: ANISOCYTOSIS PRESENT; HYPOCHROMIA MOD; PLT ESTIMATE INCREASED (ADEQUATE)
[2019-03-18] MEDS: IV NORMAL SALINE 1000ML BAG 1,000 ML IV SCH ×2 (11:41→23:20)
[2019-03-18 12:41] LABS: BASE EXCESS ABG 10 mmol/L (-3-3); HCO3 ABG 37 mmol/L (21-28); PO2 ABG 62 mmHg (65-108); SAT O2 ABG 91 % (92-99)
[2019-03-18 12:46] LABS: FIO2 ABG 30; PCO2 ABG 67 mmHg (35-46)
--- NOTE | 2019-03-18 13:07 | PDOC ---
Infectious Disease Note Vital Signs: Vital Signs Vital Signs Date Time Temp Pulse Resp B/P (MAP) Pulse Ox O2 Delivery O2 Flow Rate FiO2 03/18/19 12:00 97.9 85 36 155/87 (109) 100 BiPAP/CPAP 97.9 03/18/19 05:54 4.0 Medications: Inpatient Meds: Current Medications Medications (Trade) Dose Ordered Sig/Paige Start Time Stop Time Status Last Admin Dose Admin Linezolid/Dextrose 300 ml @ 300 mls/hr Q12HR 03/18/19 21:00 UNV Lorazepam (Ativan Inj) 1 mg PRN Q4HRS PRN 03/18/19 11:30 03/18/19 11:41 1 MG Piperacillin Sod/ Tazobactam Sod 3.375 gm/Sodium Chloride 50 ml @ 100 mls/hr Q6HRS 03/18/19 18:00 UNV Sodium Chloride 1,000 ml @ 100 mls/hr Q10H 03/18/19 11:45 03/18/19 11:41 100 MLS/HR Labs: Lab Laboratory Tests Test 03/18/19 06:10 03/18/19 06:15 03/18/19 06:18 03/18/19 08:45 Urine Collection Type Unknown Urine Color Yellow Urine Clarity Cloudy Urine pH 6.0 Urine Specific [place] 1.020 Urine Protein 100 mg/dL (NEG-TRACE) Urine Glucose (UA) Negative mg/dL (NEG) Urine Ketones (Stick) Trace mg/dL (NEG) Urine Blood Small (NEG) Urine Nitrite Positive (NEG) Urine Bilirubin Negative (NEG) Urine Urobilinogen Dipstick 1.0 mg/dL (0.2 mg/dL) Urine Leukocyte Esterase Large (NEG) Urine RBC 0 /HPF (0-2) Urine WBC Tntc /HPF (0-4) Urine Squamous Epithelial Cells Occ /LPF Urine Bacteria Many /HPF (0-FEW) White Blood Count 14.4 x10^3/uL (4.0-11.0) Red Blood Count 4.24 x10^6/uL (4.30-5.70) Hemoglobin 9.6 g/dL (13.0-17.5) Hematocrit 33.0 % (39.0-53.0) Mean Corpuscular Volume 78 fL (79-100) Mean Corpuscular Hemoglobin 23 pg (25-35) Mean Corpuscular Hemoglobin Concent 29 g/dL (31-37) Red Cell Distribution Width 16.6 % (11.5-14.5) Platelet Count 636 x10^3/uL (140-400) Neutrophils (%) (Auto) 90 % (31-73) Lymphocytes (%) (Auto) 4 % (24-48) Monocytes (%) (Auto) 5 % (0-9) Eosinophils (%) (Auto) 0 % (0-3) Basophils (%) (Auto) 0 % (0-3) Neutrophils # (Auto) 13.0 x10^3/uL (1.8-7.7) Lymphocytes # (Auto) 0.6 x10^3/uL (1.0-4.8) Monocytes # (Auto) 0.8 x10^3/uL (0.0-1.1) Eosinophils # (Auto) 0.0 x10^3/uL (0.0-0.7) Basophils # (Auto) 0.0 x10^3/uL (0.0-0.2) Segmented Neutrophils % 89 % (35-66) Band Neutrophils % 3 % (0-9) Lymphocytes % 2 % (24-48) Monocytes % 6 % (0-10) Platelet Estimate Increased (ADEQUATE) Large Platelets Present Hypochromasia Mod Anisocytosis Present Sodium Level 139 mmol/L (136-145) Potassium Level 5.0 mmol/L (3.5-5.1) Chloride Level 98 mmol/L (98-107) Carbon Dioxide Level 39 mmol/L (21-32) Anion Gap 2 (6-14) Blood Urea Nitrogen 19 mg/dL (8-26) Creatinine 0.8 mg/dL (0.7-1.3) Estimated GFR (Cockcroft-Gault) 115.3 Glucose Level 91 mg/dL (70-99) Calcium Level 9.6 mg/dL (8.5-10.1) Total Bilirubin 0.3 mg/dL (0.2-1.0) Direct Bilirubin 0.2 mg/dL (0.0-0.2) Aspartate Amino Transf (AST/SGOT) 26 U/L (15-37) Alanine Aminotransferase (ALT/SGPT) 20 U/L (16-63) Alkaline Phosphatase 107 U/L (46-116) Troponin I Quantitative < 0.017 ng/mL (0.000-0.055) WX-Prv-[id number]-Type Natriuretic Peptide 6063 pg/mL (0-124) Total Protein 7.7 g/dL (6.4-8.2) Albumin 2.5 g/dL (3.4-5.0) Lipase 35 U/L (73-393) O2 Saturation 96 % (92-99) 95 % (92-99) Arterial Blood pH 7.27 (7.35-7.45) 7.30 (7.35-7.45) Arterial Blood pCO2 at Patient Temp 96 mmHg (35-46) 88 mmHg (35-46) Arterial Blood pO2 at Patient Temp 97 mmHg (65-108) 85 mmHg (65-108) Arterial Blood HCO3 43 mmol/L (21-28) 42 mmol/L (21-28) Arterial Blood Base Excess 13 mmol/L (-3-3) 13 mmol/L (-3-3) FiO2 36 40 Test 03/18/19 10:15 03/18/19 12:35 Lactic Acid Level 1.5 mmol/L (0.4-2.0) O2 Saturation 91 % (92-99) Arterial Blood pH 7.36 (7.35-7.45) Arterial Blood pCO2 at Patient Temp 67 mmHg (35-46) Arterial Blood pO2 at Patient Temp 62 mmHg (65-108) Arterial Blood HCO3 37 mmol/L (21-28) Arterial Blood Base Excess 10 mmol/L (-3-3) FiO2 30 Objective: Assessment: PT SEEN AND EXAMINED ID CONSULT DICTATED IMP UTI WITH SPC IN PLACE ACUTE RESP FAILURE AMS MS RESIDENT Plan: Plan of Care ZOSYN AND ZYVOX F/U UC AND BC CHANGE SPC, SEND UA AND URINE C/S LOCAL WOUND CARE,NOT INFECTED D/W RN THANK MICHELINE DIA MD Mar 18, 2019 13:07
--- NOTE | 2019-03-18 13:34 | PDOC ---
PULMONARY PROGRESS NOTES Vitals Vital Signs Date Time Temp Pulse Resp B/P (MAP) Pulse Ox O2 Delivery O2 Flow Rate FiO2 03/18/19 13:04 100 BiPAP/CPAP 03/18/19 13:00 86 34 142/82 (102) 03/18/19 12:00 97.9 97.9 03/18/19 05:54 4.0 Lungs: Other Cardiovascular: S1, S2 Labs Laboratory Tests Test 03/18/19 06:10 03/18/19 06:15 03/18/19 06:18 03/18/19 08:45 Urine Collection Type Unknown Urine Color Yellow Urine Clarity Cloudy Urine pH 6.0 Urine Specific [place] 1.020 Urine Protein 100 mg/dL (NEG-TRACE) Urine Glucose (UA) Negative mg/dL (NEG) Urine Ketones (Stick) Trace mg/dL (NEG) Urine Blood Small (NEG) Urine Nitrite Positive (NEG) Urine Bilirubin Negative (NEG) Urine Urobilinogen Dipstick 1.0 mg/dL (0.2 mg/dL) Urine Leukocyte Esterase Large (NEG) Urine RBC 0 /HPF (0-2) Urine WBC Tntc /HPF (0-4) Urine Squamous Epithelial Cells Occ /LPF Urine Bacteria Many /HPF (0-FEW) White Blood Count 14.4 x10^3/uL (4.0-11.0) Red Blood Count 4.24 x10^6/uL (4.30-5.70) Hemoglobin 9.6 g/dL (13.0-17.5) Hematocrit 33.0 % (39.0-53.0) Mean Corpuscular Volume 78 fL (79-100) Mean Corpuscular Hemoglobin 23 pg (25-35) Mean Corpuscular Hemoglobin Concent 29 g/dL (31-37) Red Cell Distribution Width 16.6 % (11.5-14.5) Platelet Count 636 x10^3/uL (140-400) Neutrophils (%) (Auto) 90 % (31-73) Lymphocytes (%) (Auto) 4 % (24-48) Monocytes (%) (Auto) 5 % (0-9) Eosinophils (%) (Auto) 0 % (0-3) Basophils (%) (Auto) 0 % (0-3) Neutrophils # (Auto) 13.0 x10^3/uL (1.8-7.7) Lymphocytes # (Auto) 0.6 x10^3/uL (1.0-4.8) Monocytes # (Auto) 0.8 x10^3/uL (0.0-1.1) Eosinophils # (Auto) 0.0 x10^3/uL (0.0-0.7) Basophils # (Auto) 0.0 x10^3/uL (0.0-0.2) Segmented Neutrophils % 89 % (35-66) Band Neutrophils % 3 % (0-9) Lymphocytes % 2 % (24-48) Monocytes % 6 % (0-10) Platelet Estimate Increased (ADEQUATE) Large Platelets Present Hypochromasia Mod Anisocytosis Present Sodium Level 139 mmol/L (136-145) Potassium Level 5.0 mmol/L (3.5-5.1) Chloride Level 98 mmol/L (98-107) Carbon Dioxide Level 39 mmol/L (21-32) Anion Gap 2 (6-14) Blood Urea Nitrogen 19 mg/dL (8-26) Creatinine 0.8 mg/dL (0.7-1.3) Estimated GFR (Cockcroft-Gault) 115.3 Glucose Level 91 mg/dL (70-99) Calcium Level 9.6 mg/dL (8.5-10.1) Total Bilirubin 0.3 mg/dL (0.2-1.0) Direct Bilirubin 0.2 mg/dL (0.0-0.2) Aspartate Amino Transf (AST/SGOT) 26 U/L (15-37) Alanine Aminotransferase (ALT/SGPT) 20 U/L (16-63) Alkaline Phosphatase 107 U/L (46-116) Troponin I Quantitative < 0.017 ng/mL (0.000-0.055) AC-Zgs-S-Type Natriuretic Peptide 6063 pg/mL (0-124) Total Protein 7.7 g/dL (6.4-8.2) Albumin 2.5 g/dL (3.4-5.0) Lipase 35 U/L (73-393) O2 Saturation 96 % (92-99) 95 % (92-99) Arterial Blood pH 7.27 (7.35-7.45) 7.30 (7.35-7.45) Arterial Blood pCO2 at Patient Temp 96 mmHg (35-46) 88 mmHg (35-46) Arterial Blood pO2 at Patient Temp 97 mmHg (65-108) 85 mmHg (65-108) Arterial Blood HCO3 43 mmol/L (21-28) 42 mmol/L (21-28) Arterial Blood Base Excess 13 mmol/L (-3-3) 13 mmol/L (-3-3) FiO2 36 40 Test 03/18/19 10:15 03/18/19 12:35 Lactic Acid Level 1.5 mmol/L (0.4-2.0) O2 Saturation 91 % (92-99) Arterial Blood pH 7.36 (7.35-7.45) Arterial Blood pCO2 at Patient Temp 67 mmHg (35-46) Arterial Blood pO2 at Patient Temp 62 mmHg (65-108) Arterial Blood HCO3 37 mmol/L (21-28) Arterial Blood Base Excess 10 mmol/L (-3-3) FiO2 30 Laboratory Tests Test 03/18/19 06:10 03/18/19 06:15 03/18/19 06:18 03/18/19 08:45 Urine Collection Type Unknown Urine Color Yellow Urine Clarity Cloudy Urine pH 6.0 Urine Specific [place] 1.020 Urine Protein 100 mg/dL (NEG-TRACE) Urine Glucose (UA) Negative mg/dL (NEG) Urine Ketones (Stick) Trace mg/dL (NEG) Urine Blood Small (NEG) Urine Nitrite Positive (NEG) Urine Bilirubin Negative (NEG) Urine Urobilinogen Dipstick 1.0 mg/dL (0.2 mg/dL) Urine Leukocyte Esterase Large (NEG) Urine RBC 0 /HPF (0-2) Urine WBC Tntc /HPF (0-4) Urine Squamous Epithelial Cells Occ /LPF Urine Bacteria Many /HPF (0-FEW) White Blood Count 14.4 x10^3/uL (4.0-11.0) Red Blood Count 4.24 x10^6/uL (4.30-5.70) Hemoglobin 9.6 g/dL (13.0-17.5) Hematocrit 33.0 % (39.0-53.0) Mean Corpuscular Volume 78 fL (79-100) Mean Corpuscular Hemoglobin 23 pg (25-35) Mean Corpuscular Hemoglobin Concent 29 g/dL (31-37) Red Cell Distribution Width 16.6 % (11.5-14.5) Platelet Count 636 x10^3/uL (140-400) Neutrophils (%) (Auto) 90 % (31-73) Lymphocytes (%) (Auto) 4 % (24-48) Monocytes (%) (Auto) 5 % (0-9) Eosinophils (%) (Auto) 0 % (0-3) Basophils (%) (Auto) 0 % (0-3) Neutrophils # (Auto) 13.0 x10^3/uL (1.8-7.7) Lymphocytes # (Auto) 0.6 x10^3/uL (1.0-4.8) Monocytes # (Auto) 0.8 x10^3/uL (0.0-1.1) Eosinophils # (Auto) 0.0 x10^3/uL (0.0-0.7) Basophils # (Auto) 0.0 x10^3/uL (0.0-0.2) Segmented Neutrophils % 89 % (35-66) Band Neutrophils % 3 % (0-9) Lymphocytes % 2 % (24-48) Monocytes % 6 % (0-10) Platelet Estimate Increased (ADEQUATE) Large Platelets Present Hypochromasia Mod Anisocytosis Present Sodium Level 139 mmol/L (136-145) Potassium Level 5.0 mmol/L (3.5-5.1) Chloride Level 98 mmol/L (98-107) Carbon Dioxide Level 39 mmol/L (21-32) Anion Gap 2 (6-14) Blood Urea Nitrogen 19 mg/dL (8-26) Creatinine 0.8 mg/dL (0.7-1.3) Estimated GFR (Cockcroft-Gault) 115.3 Glucose Level 91 mg/dL (70-99) Calcium Level 9.6 mg/dL (8.5-10.1) Total Bilirubin 0.3 mg/dL (0.2-1.0) Direct Bilirubin 0.2 mg/dL (0.0-0.2) Aspartate Amino Transf (AST/SGOT) 26 U/L (15-37) Alanine Aminotransferase (ALT/SGPT) 20 U/L (16-63) Alkaline Phosphatase 107 U/L (46-116) Troponin I Quantitative < 0.017 ng/mL (0.000-0.055) MW-Oxg-I-Type Natriuretic Peptide 6063 pg/mL (0-124) Total Protein 7.7 g/dL (6.4-8.2) Albumin 2.5 g/dL (3.4-5.0) Lipase 35 U/L (73-393) O2 Saturation 96 % (92-99) 95 % (92-99) Arterial Blood pH 7.27 (7.35-7.45) 7.30 (7.35-7.45) Arterial Blood pCO2 at Patient Temp 96 mmHg (35-46) 88 mmHg (35-46) Arterial Blood pO2 at Patient Temp 97 mmHg (65-108) 85 mmHg (65-108) Arterial Blood HCO3 43 mmol/L (21-28) 42 mmol/L (21-28) Arterial Blood Base Excess 13 mmol/L (-3-3) 13 mmol/L (-3-3) FiO2 36 40 Test 03/18/19 10:15 03/18/19 12:35 Lactic Acid Level 1.5 mmol/L (0.4-2.0) O2 Saturation 91 % (92-99) Arterial Blood pH 7.36 (7.35-7.45) Arterial Blood pCO2 at Patient Temp 67 mmHg (35-46) Arterial Blood pO2 at Patient Temp 62 mmHg (65-108) Arterial Blood HCO3 37 mmol/L (21-28) Arterial Blood Base Excess 10 mmol/L (-3-3) FiO2 30 Medications Active Scripts Medications Dose Route/Sig Max Daily Dose Days Date Category Dose Instructions Zinc Oxide 56.7 Gm Oint...g. 56.7 Gm TP DAILY 03/18/19 Reported Tussin (Guaifenesin) 100 Mg/5 Ml Liquid 5 Ml PO QID 10 03/18/19 Reported Flonase Allergy Relief (Fluticasone Propionate) 9.9 Ml [place].susp 2 Sprays NS DAILY 03/18/19 Reported Albuterol Sulfate Neb Soln (Albuterol Sulfate) 2.5 Mg/3 Ml Vial.neb 2.5 Mg NEB QID 12/05/18 Reported Geodon (Ziprasidone Hcl) 80 Mg Capsule 1 Cap PO BID 12/05/18 Reported Protonix (Pantoprazole Sodium) 20 Mg Tablet.dr 40 Mg PO DAILY 12/05/18 Reported Loxapine (Loxapine Succinate) 5 Mg Capsule 5 Mg PO PRN Q12HRS PRN 12/05/18 Reported Loxapine (Loxapine Succinate) 10 Mg Capsule 10 Mg PO HS 12/05/18 Reported GIVE 3 CAPSULE BY MOUTH AT BEDTIME FOR AGITATION Lisinopril 20 Mg Tablet 20 Mg PO DAILY 12/05/18 Reported HOLD FOR SBP < 110 Ferrous Sulfate 325 Mg Tablet 1 Tab PO DAILY 12/05/18 Reported Carvedilol 25 Mg Tablet 25 Mg PO BIDWMEALS 12/05/18 Reported hold for SBP < 110 and pulse < 40 Impression . NOTE DICTATED A/C HYPERCAPNEA RESP FAILURE SEPSIS UTI ABNORMAL CXR MALCOLM URIARTE MD Mar 18, 2019 13:34
[2019-03-18] MEDS: PIPERACILLIN/TAZOBACTAM 3.375 GM in IV NORMAL SALINE 50ML 50 ML IV SCH ×2 (14:00→18:26)
--- NOTE | 2019-03-18 14:49 | PDOC1 ---
History and Physical Date of Admission: Date of Admission DATE: 03/18/19 TIME: 14:44 Chief Complaint: Problems: (1) Swelling of extremity, left (2) Generalized weakness (3) UTI (urinary tract infection) (4) Leg wound, right (5) Altered mental status (6) Acute hypercapnic respiratory failure Chief Complain: Mental status change shortness of breath History of Present Illness: HPI: This is a pleasant 73-year-old male who presented to the ER with phone and respiratory failure He was quite short of breath and had mental status change He lives in a half-way and they called 911 and he was brought to the ER via ambulance He was okay 1 the morning when he was last seen but this morning he is very ill He cannot wake up to me how bad his symptoms are he is too weak and confused The half-way facility did try to give him some of his schedule meds but that did not help I discussed case with ER physician appears the patient has a UTI and in respiratory failure We put him on BiPAP We are admitting to give IV antibiotics and consult pulmonary and infectious disease and cardiology because his BNP levels also 6000 Past Medical/Surgical History: PMH/PSH: Past Medical History: Anemia, Hypertension, Schizophrenia Additional Past Medical Histor: PTSD,BORDERLINE PERSONALITY,ACUTE RESP FAILURE,PARANOID Past Surgical History: Other Additional Past Surgical Histo: L LEG AMPUTATION Alcohol Use: None Drug Use: None Allergies: Allergies: Coded Allergies: chlorpromazine (Verified Allergy, Intermediate, 12/05/18) haloperidol (Verified Allergy, Intermediate, 12/05/18) trazodone (Verified Allergy, Intermediate, 12/05/18) Family History: Family History: Diabetes per the record Social History: Social Hisoty: He lives at a half-way does not drink smoke or take drugs Current Medications: Current Medications Current Medications Piperacillin Sod/ Tazobactam Sod 3.375 gm/Sodium Chloride 50 ml @ 100 mls/hr 1X ONCE IV Last administered on 03/18/19at 08:01; Start 03/18/19 at 07:30; Stop 03/18/19 at 07:59; Status DC Sodium Chloride 500 ml @ 500 mls/hr 1X ONCE IV Last administered on 03/18/19at 09:28; Start 03/18/19 at 09:00; Stop 03/18/19 at 09:59; Status DC Lorazepam (Ativan Inj) 1 mg PRN Q4HRS PRN IVP ANXIETY / AGITATION Last administered on 03/18/19at 11:41; Start 03/18/19 at 11:30 Sodium Chloride 1,000 ml @ 100 mls/hr Q10H IV Last administered on 03/18/19at 11:41; Start 03/18/19 at 11:45 Piperacillin Sod/ Tazobactam Sod 3.375 gm/Sodium Chloride 50 ml @ 100 mls/hr Q6HRS IV Last administered on 03/18/19at 14:00; Start 03/18/19 at 14:00 Linezolid/Dextrose 300 ml @ 300 mls/hr Q12HR IV ; Start 03/18/19 at 15:00 Active Scripts Active Reported Zinc Oxide 56.7 Gm Oint...g. 56.7 Gm TP DAILY Tussin (Guaifenesin) 100 Mg/5 Ml Liquid 5 Ml PO QID 10 Days Flonase Allergy Relief (Fluticasone Propionate) 9.9 Ml [place].susp 2 Sprays NS DAILY Albuterol Sulfate Neb Soln (Albuterol Sulfate) 2.5 Mg/3 Ml Vial.neb 2.5 Mg NEB QID Geodon (Ziprasidone Hcl) 80 Mg Capsule 1 Cap PO BID Protonix (Pantoprazole Sodium) 20 Mg Tablet.dr 40 Mg PO DAILY Loxapine (Loxapine Succinate) 5 Mg Capsule 5 Mg PO PRN Q12HRS PRN Loxapine (Loxapine Succinate) 10 Mg Capsule 10 Mg PO HS GIVE 3 CAPSULE BY MOUTH AT BEDTIME FOR AGITATION Lisinopril 20 Mg Tablet 20 Mg PO DAILY HOLD FOR SBP < 110 Ferrous Sulfate 325 Mg Tablet 1 Tab PO DAILY Carvedilol 25 Mg Tablet 25 Mg PO BIDWMEALS hold for SBP < 110 and pulse < 40 ROS: Review of Systems Unable to obtain the patient is to lethargic and confused Physical Exam: Vital Signs: Vital Signs Date Time Temp Pulse Resp B/P (MAP) Pulse Ox O2 Delivery O2 Flow Rate FiO2 03/18/19 14:00 83 38 171/95 (120) 100 BiPAP/CPAP 03/18/19 12:00 97.9 97.9 03/18/19 05:54 4.0 Physcial Exam: GEN: Extremely lethargic confused on BiPAP HEENT: Normal cephalic, atraumatic, external auditory canals are patent EYES: Extraocular muscles are intact, pupil are equally round and reactive to light and accommodation MUSCULOSKELETAL: Well-developed well-nourished ENDOCRINE: No thyromegaly was palpated LYMPHATICS: No cervical chain or axillary nodes were noted HEMATOPOIETIC: No bruising NECK: Has slight JVD LUNGS: Course breath sounds throughout HEART: S!, S2 present. But he is tachycardic with a slight S3 ABDOMEN: Soft, nontender. Decreased bowel sounds EXTREMITIES: He has a BKA on the left NEUROLOGIC: Obtunded lethargic PSYCHIATRIC: Obtunded lethargic SKIN: No ulcerations or rashes, good skin turgor, no jaundice VASCULAR: Slow capillary refill Labs: Labs: Laboratory Tests Test 03/18/19 06:10 03/18/19 06:15 03/18/19 06:18 03/18/19 08:45 Urine Collection Type Unknown Urine Color Yellow Urine Clarity Cloudy Urine pH 6.0 Urine Specific [place] 1.020 Urine Protein 100 mg/dL (NEG-TRACE) Urine Glucose (UA) Negative mg/dL (NEG) Urine Ketones (Stick) Trace mg/dL (NEG) Urine Blood Small (NEG) Urine Nitrite Positive (NEG) Urine Bilirubin Negative (NEG) Urine Urobilinogen Dipstick 1.0 mg/dL (0.2 mg/dL) Urine Leukocyte Esterase Large (NEG) Urine RBC 0 /HPF (0-2) Urine WBC Tntc /HPF (0-4) Urine Squamous Epithelial Cells Occ /LPF Urine Bacteria Many /HPF (0-FEW) White Blood Count 14.4 x10^3/uL (4.0-11.0) Red Blood Count 4.24 x10^6/uL (4.30-5.70) Hemoglobin 9.6 g/dL (13.0-17.5) Hematocrit 33.0 % (39.0-53.0) Mean Corpuscular Volume 78 fL (79-100) Mean Corpuscular Hemoglobin 23 pg (25-35) Mean Corpuscular Hemoglobin Concent 29 g/dL (31-37) Red Cell Distribution Width 16.6 % (11.5-14.5) Platelet Count 636 x10^3/uL (140-400) Neutrophils (%) (Auto) 90 % (31-73) Lymphocytes (%) (Auto) 4 % (24-48) Monocytes (%) (Auto) 5 % (0-9) Eosinophils (%) (Auto) 0 % (0-3) Basophils (%) (Auto) 0 % (0-3) Neutrophils # (Auto) 13.0 x10^3/uL (1.8-7.7) Lymphocytes # (Auto) 0.6 x10^3/uL (1.0-4.8) Monocytes # (Auto) 0.8 x10^3/uL (0.0-1.1) Eosinophils # (Auto) 0.0 x10^3/uL (0.0-0.7) Basophils # (Auto) 0.0 x10^3/uL (0.0-0.2) Segmented Neutrophils % 89 % (35-66) Band Neutrophils % 3 % (0-9) Lymphocytes % 2 % (24-48) Monocytes % 6 % (0-10) Platelet Estimate Increased (ADEQUATE) Large Platelets Present Hypochromasia Mod Anisocytosis Present Sodium Level 139 mmol/L (136-145) Potassium Level 5.0 mmol/L (3.5-5.1) Chloride Level 98 mmol/L (98-107) Carbon Dioxide Level 39 mmol/L (21-32) Anion Gap 2 (6-14) Blood Urea Nitrogen 19 mg/dL (8-26) Creatinine 0.8 mg/dL (0.7-1.3) Estimated GFR (Cockcroft-Gault) 115.3 Glucose Level 91 mg/dL (70-99) Calcium Level 9.6 mg/dL (8.5-10.1) Total Bilirubin 0.3 mg/dL (0.2-1.0) Direct Bilirubin 0.2 mg/dL (0.0-0.2) Aspartate Amino Transf (AST/SGOT) 26 U/L (15-37) Alanine Aminotransferase (ALT/SGPT) 20 U/L (16-63) Alkaline Phosphatase 107 U/L (46-116) Troponin I Quantitative < 0.017 ng/mL (0.000-0.055) CF-Cyc-O-Type Natriuretic Peptide 6063 pg/mL (0-124) Total Protein 7.7 g/dL (6.4-8.2) Albumin 2.5 g/dL (3.4-5.0) Lipase 35 U/L (73-393) O2 Saturation 96 % (92-99) 95 % (92-99) Arterial Blood pH 7.27 (7.35-7.45) 7.30 (7.35-7.45) Arterial Blood pCO2 at Patient Temp 96 mmHg (35-46) 88 mmHg (35-46) Arterial Blood pO2 at Patient Temp 97 mmHg (65-108) 85 mmHg (65-108) Arterial Blood HCO3 43 mmol/L (21-28) 42 mmol/L (21-28) Arterial Blood Base Excess 13 mmol/L (-3-3) 13 mmol/L (-3-3) FiO2 36 40 Test 03/18/19 10:15 03/18/19 12:35 Lactic Acid Level 1.5 mmol/L (0.4-2.0) O2 Saturation 91 % (92-99) Arterial Blood pH 7.36 (7.35-7.45) Arterial Blood pCO2 at Patient Temp 67 mmHg (35-46) Arterial Blood pO2 at Patient Temp 62 mmHg (65-108) Arterial Blood HCO3 37 mmol/L (21-28) Arterial Blood Base Excess 10 mmol/L (-3-3) FiO2 30 Laboratory Tests Test 03/18/19 06:10 03/18/19 06:15 03/18/19 06:18 03/18/19 08:45 Urine Collection Type Unknown Urine Color Yellow Urine Clarity Cloudy Urine pH 6.0 Urine Specific [place] 1.020 Urine Protein 100 mg/dL (NEG-TRACE) Urine Glucose (UA) Negative mg/dL (NEG) Urine Ketones (Stick) Trace mg/dL (NEG) Urine Blood Small (NEG) Urine Nitrite Positive (NEG) Urine Bilirubin Negative (NEG) Urine Urobilinogen Dipstick 1.0 mg/dL (0.2 mg/dL) Urine Leukocyte Esterase Large (NEG) Urine RBC 0 /HPF (0-2) Urine WBC Tntc /HPF (0-4) Urine Squamous Epithelial Cells Occ /LPF Urine Bacteria Many /HPF (0-FEW) White Blood Count 14.4 x10^3/uL (4.0-11.0) Red Blood Count 4.24 x10^6/uL (4.30-5.70) Hemoglobin 9.6 g/dL (13.0-17.5) Hematocrit 33.0 % (39.0-53.0) Mean Corpuscular Volume 78 fL (79-100) Mean Corpuscular Hemoglobin 23 pg (25-35) Mean Corpuscular Hemoglobin Concent 29 g/dL (31-37) Red Cell Distribution Width 16.6 % (11.5-14.5) Platelet Count 636 x10^3/uL (140-400) Neutrophils (%) (Auto) 90 % (31-73) Lymphocytes (%) (Auto) 4 % (24-48) Monocytes (%) (Auto) 5 % (0-9) Eosinophils (%) (Auto) 0 % (0-3) Basophils (%) (Auto) 0 % (0-3) Neutrophils # (Auto) 13.0 x10^3/uL (1.8-7.7) Lymphocytes # (Auto) 0.6 x10^3/uL (1.0-4.8) Monocytes # (Auto) 0.8 x10^3/uL (0.0-1.1) Eosinophils # (Auto) 0.0 x10^3/uL (0.0-0.7) Basophils # (Auto) 0.0 x10^3/uL (0.0-0.2) Segmented Neutrophils % 89 % (35-66) Band Neutrophils % 3 % (0-9) Lymphocytes % 2 % (24-48) Monocytes % 6 % (0-10) Platelet Estimate Increased (ADEQUATE) Large Platelets Present Hypochromasia Mod Anisocytosis Present Sodium Level 139 mmol/L (136-145) Potassium Level 5.0 mmol/L (3.5-5.1) Chloride Level 98 mmol/L (98-107) Carbon Dioxide Level 39 mmol/L (21-32) Anion Gap 2 (6-14) Blood Urea Nitrogen 19 mg/dL (8-26) Creatinine 0.8 mg/dL (0.7-1.3) Estimated GFR (Cockcroft-Gault) 115.3 Glucose Level 91 mg/dL (70-99) Calcium Level 9.6 mg/dL (8.5-10.1) Total Bilirubin 0.3 mg/dL (0.2-1.0) Direct Bilirubin 0.2 mg/dL (0.0-0.2) Aspartate Amino Transf (AST/SGOT) 26 U/L (15-37) Alanine Aminotransferase (ALT/SGPT) 20 U/L (16-63) Alkaline Phosphatase 107 U/L (46-116) Troponin I Quantitative < 0.017 ng/mL (0.000-0.055) HZ-Dor-G-Type Natriuretic Peptide 6063 pg/mL (0-124) Total Protein 7.7 g/dL (6.4-8.2) Albumin 2.5 g/dL (3.4-5.0) Lipase 35 U/L (73-393) O2 Saturation 96 % (92-99) 95 % (92-99) Arterial Blood pH 7.27 (7.35-7.45) 7.30 (7.35-7.45) Arterial Blood pCO2 at Patient Temp 96 mmHg (35-46) 88 mmHg (35-46) Arterial Blood pO2 at Patient Temp 97 mmHg (65-108) 85 mmHg (65-108) Arterial Blood HCO3 43 mmol/L (21-28) 42 mmol/L (21-28) Arterial Blood Base Excess 13 mmol/L (-3-3) 13 mmol/L (-3-3) FiO2 36 40 Test 03/18/19 10:15 03/18/19 12:35 Lactic Acid Level 1.5 mmol/L (0.4-2.0) O2 Saturation 91 % (92-99) Arterial Blood pH 7.36 (7.35-7.45) Arterial Blood pCO2 at Patient Temp 67 mmHg (35-46) Arterial Blood pO2 at Patient Temp 62 mmHg (65-108) Arterial Blood HCO3 37 mmol/L (21-28) Arterial Blood Base Excess 10 mmol/L (-3-3) FiO2 30 Images: Images AP portable chest radiograph 03/18/2019 Clinical History: History of lung infiltrates. An AP erect portable digital radiograph of the chest was obtained. Comparison study is dated 12/05/2018. The cardiac silhouette is mildly enlarged. The thoracic aorta is mildly tortuous. Areas of probable scarring are seen scattered throughout both lungs particularly involving the left upper lobe and right lower lobe. These are unchanged. No area of consolidation is seen. No pneumothorax or pleural effusion is noted. Mild S-shaped curvature of the thoracolumbar spine is seen. Degenerative changes are seen involving the thoracic spine along with both shoulders. IMPRESSION: No area of consolidation is seen. Assessment/Plan Assessment/Plan Fulminant respiratory failure and and still finding of UTI with probable sepsis Plan IV antibiotics IV fluids until we can further clarify his cardiac status ICU monitoring Consult infectious disease Consult pulmonary Consult cardiology Duo nebs every 4 BiPAP DVT prophylaxis Trend labs Full code Prognosis guarded BECKY HARRIS III DO Mar 18, 2019 14:49
[2019-03-18 14:52] LABS: BILIRUBIN,URINE NEGATIVE (NEG); CLARITY,URINE CLOUDY; COLOR,URINE YELLOW; NITRITE,URINE POSITIVE (NEG); PROTEIN,URINE 30 mg/dL (NEG-TRACE); UROBILINOGEN,URINE 0.2 mg/dL (0.2 mg/dL)
[2019-03-18 15:04] LABS: AMORPHOUS SEDIMENT,UR PRESENT /HPF; BACTERIA,URINE FEW /HPF (0-FEW); WBC,URINE TNTC /HPF (0-4)
--- NOTE | 2019-03-18 15:35 | PDOC2 ---
CARDIAC CONSULT DATE OF CONSULT Date of Consult DATE: 03/18/19 TIME: 15:18 REASON FOR CONSULT Reason for Consult: ? CHF BNP 6000 REFERRING PHYSICIAN Referring Physician: Dr. Adan SOURCE Source: Chart review, Patient HISTORY OF PRESENT ILLNESS HISTORY OF PRESENT ILLNESS This is a 73 yo male who presented from nursing facility secondary to altered mental status. Patient has history of schizophrenia and specific baseline is unknown. RN does report that staff at facility stated he is normally able to communicate his needs. This morning, patient was noted with shortness of breath and altered mental status. EMS was called. Patient presently somnolent on BiPAP and unable to prior any history. PAST MEDICAL HISTORY Cardiovascular: HTN, Other (PAD) Pulmonary: COPD, Pneumonia Psych: Anxiety, Depression, Schizophrenia, Other (PTSD ) Renal/: UTI PAST SURGICAL HISTORY Past Surgical History: Other (suprapubic cath, s/p left AKA) FAMILY HISTORY Family History: Family History Unknown SOCIAL HISTORY ALCOHOL: none Drugs: None Lives: [facility] CURRENT MEDICATIONS CURRENT MEDICATIONS Current Medications Medications (Trade) Dose Ordered Sig/Paige Route PRN Reason Start Time Stop Time Status Last Admin Dose Admin Piperacillin Sod/ Tazobactam Sod 3.375 gm/Sodium Chloride 50 ml @ 100 mls/hr 1X ONCE IV 03/18/19 07:30 03/18/19 07:59 DC 03/18/19 08:01 Sodium Chloride 500 ml @ 500 mls/hr 1X ONCE IV 03/18/19 09:00 03/18/19 09:59 DC 03/18/19 09:28 Lorazepam (Ativan Inj) 1 mg PRN Q4HRS PRN IVP ANXIETY / AGITATION 03/18/19 11:30 03/18/19 11:41 Sodium Chloride 1,000 ml @ 100 mls/hr Q10H IV 03/18/19 11:45 03/18/19 11:41 Piperacillin Sod/ Tazobactam Sod 3.375 gm/Sodium Chloride 50 ml @ 100 mls/hr Q6HRS IV 03/18/19 14:00 03/18/19 14:00 Linezolid/Dextrose 300 ml @ 300 mls/hr Q12HR IV 03/18/19 15:00 03/18/19 15:11 ALLERGIES ALLERGIES: Coded Allergies: chlorpromazine (Verified Allergy, Intermediate, 12/05/18) haloperidol (Verified Allergy, Intermediate, 12/05/18) trazodone (Verified Allergy, Intermediate, 12/05/18) ROS Review of System 14 point ROS conducted with pertinent positives noted above in HPI. PHYSICAL EXAM General: Other (somnolent ) HEENT: Atraumatic Lungs: Clear to auscultation, Other (bipap) Heart: Regular rate, Other (distant heart tones ) Abdomen: Soft Extremities: Other (1+ right LE edema with chronic venous stasis changes. left AKA) Skin: Other (RLE scaly ) Neuro: Other (unable to assess ) Psych/Mental Status: Other (unable to assess ) MUSCULOSKELETAL: Osteoarthritic changes both hands VITALS/I&O VITALS/I&O: Vital Signs Date Time Temp Pulse Resp B/P (MAP) Pulse Ox O2 Delivery O2 Flow Rate FiO2 03/18/19 15:00 83 38 118/72 (87) 100 BiPAP/CPAP 03/18/19 12:00 97.9 97.9 03/18/19 05:54 4.0 LABS Lab: Laboratory Tests Test 03/18/19 06:10 03/18/19 06:15 03/18/19 06:18 03/18/19 08:45 Urine Collection Type Unknown Urine Color Yellow Urine Clarity Cloudy Urine pH 6.0 Urine Specific [place] 1.020 Urine Protein 100 mg/dL (NEG-TRACE) Urine Glucose (UA) Negative mg/dL (NEG) Urine Ketones (Stick) Trace mg/dL (NEG) Urine Blood Small (NEG) Urine Nitrite Positive (NEG) Urine Bilirubin Negative (NEG) Urine Urobilinogen Dipstick 1.0 mg/dL (0.2 mg/dL) Urine Leukocyte Esterase Large (NEG) Urine RBC 0 /HPF (0-2) Urine WBC Tntc /HPF (0-4) Urine Squamous Epithelial Cells Occ /LPF Urine Bacteria Many /HPF (0-FEW) White Blood Count 14.4 x10^3/uL (4.0-11.0) H Red Blood Count 4.24 x10^6/uL (4.30-5.70) L Hemoglobin 9.6 g/dL (13.0-17.5) L Hematocrit 33.0 % (39.0-53.0) L Mean Corpuscular Volume 78 fL (79-100) L Mean Corpuscular Hemoglobin 23 pg (25-35) L Mean Corpuscular Hemoglobin Concent 29 g/dL (31-37) L Red Cell Distribution Width 16.6 % (11.5-14.5) H Platelet Count 636 x10^3/uL (140-400) H Neutrophils (%) (Auto) 90 % (31-73) H Lymphocytes (%) (Auto) 4 % (24-48) L Monocytes (%) (Auto) 5 % (0-9) Eosinophils (%) (Auto) 0 % (0-3) Basophils (%) (Auto) 0 % (0-3) Neutrophils # (Auto) 13.0 x10^3/uL (1.8-7.7) H Lymphocytes # (Auto) 0.6 x10^3/uL (1.0-4.8) L Monocytes # (Auto) 0.8 x10^3/uL (0.0-1.1) Eosinophils # (Auto) 0.0 x10^3/uL (0.0-0.7) Basophils # (Auto) 0.0 x10^3/uL (0.0-0.2) Segmented Neutrophils % 89 % (35-66) H Band Neutrophils % 3 % (0-9) Lymphocytes % 2 % (24-48) L Monocytes % 6 % (0-10) Platelet Estimate Increased (ADEQUATE) Large Platelets Present Hypochromasia Mod Anisocytosis Present Sodium Level 139 mmol/L (136-145) Potassium Level 5.0 mmol/L (3.5-5.1) Chloride Level 98 mmol/L (98-107) Carbon Dioxide Level 39 mmol/L (21-32) H Anion Gap 2 (6-14) L Blood Urea Nitrogen 19 mg/dL (8-26) Creatinine 0.8 mg/dL (0.7-1.3) Estimated GFR (Cockcroft-Gault) 115.3 Glucose Level 91 mg/dL (70-99) Calcium Level 9.6 mg/dL (8.5-10.1) Total Bilirubin 0.3 mg/dL (0.2-1.0) Direct Bilirubin 0.2 mg/dL (0.0-0.2) Aspartate Amino Transferase (AST) 26 U/L (15-37) Alanine Aminotransferase (ALT) 20 U/L (16-63) Alkaline Phosphatase 107 U/L (46-116) Troponin I Quantitative < 0.017 ng/mL (0.000-0.055) RL-Iyv-E-Type Natriuretic Peptide 6063 pg/mL (0-124) H Total Protein 7.7 g/dL (6.4-8.2) Albumin 2.5 g/dL (3.4-5.0) L Lipase 35 U/L (73-393) L O2 Saturation 96 % (92-99) 95 % (92-99) Arterial Blood pH 7.27 (7.35-7.45) L 7.30 (7.35-7.45) L Arterial Blood pCO2 at Patient Temp 96 mmHg (35-46) *H 88 mmHg (35-46) *H Arterial Blood pO2 at Patient Temp 97 mmHg (65-108) 85 mmHg (65-108) Arterial Blood HCO3 43 mmol/L (21-28) H 42 mmol/L (21-28) H Arterial Blood Base Excess 13 mmol/L (-3-3) H 13 mmol/L (-3-3) H FiO2 36 40 Test 03/18/19 10:15 03/18/19 12:35 03/18/19 14:40 Lactic Acid Level 1.5 mmol/L (0.4-2.0) O2 Saturation 91 % (92-99) L Arterial Blood pH 7.36 (7.35-7.45) Arterial Blood pCO2 at Patient Temp 67 mmHg (35-46) *H Arterial Blood pO2 at Patient Temp 62 mmHg (65-108) L Arterial Blood HCO3 37 mmol/L (21-28) H Arterial Blood Base Excess 10 mmol/L (-3-3) H FiO2 30 Urine Collection Type Unknown Urine Color Yellow Urine Clarity Cloudy Urine pH 6.0 Urine Specific [place] 1.020 Urine Protein 30 mg/dL (NEG-TRACE) Urine Glucose (UA) Negative mg/dL (NEG) Urine Ketones (Stick) 15 mg/dL (NEG) Urine Blood Trace (NEG) Urine Nitrite Positive (NEG) Urine Bilirubin Negative (NEG) Urine Urobilinogen Dipstick 0.2 mg/dL (0.2 mg/dL) Urine Leukocyte Esterase Large (NEG) Urine RBC 3-5 /HPF (0-2) Urine WBC Tntc /HPF (0-4) Urine Amorphous Sediment Present /HPF Urine Bacteria Few /HPF (0-FEW) Urine Mucus Mod /LPF Laboratory Tests 03/18/19 06:15 Laboratory Tests 03/18/19 06:15 ASSESSMENT/PLAN ASSESSMENT/PLAN 1. Metabolic encephalopathy 2. Leukocytosis, probable sepsis 3. UTI with suprapubic catheter 4. Acute on chronic respiratory failure; on BiPAP 5. Anemia, ID; on iron replacement 6. Elevated Nt Pro BNP; CXR without pul edema. No JVD. Doubt overt HF 7. PAD; s/p left AKA Anxiety, depression, schizophrenia Recommendations Echo to assess LV systolic function Follow cultures Ongoing antibioitc BiPAP support Resume BB, ACEi when able to take oral LINDA LYN APRN Mar 18, 2019 15:35
--- NOTE | 2019-03-18 16:01 | RAD ---
EXAM: Renal sonogram. HISTORY: Urinary tract infection. TECHNIQUE: Sonographic imaging of the kidneys and bladder was performed. COMPARISON: None. FINDINGS: The kidneys are normal in size. The kidneys are echogenic. There is a cyst within the inferior left kidney measuring 4.5 cm. There is a smaller cyst within the mid zone of the left kidney measuring 7 mm. No convincing solid renal lesion is seen. There is a suprapubic catheter within a predominantly empty urinary bladder. There is bladder wall thickening. IMPRESSION: 1. Echogenic kidneys. This can be seen with medical renal disease. 2. Left renal cysts. These are simple in appearance. 3. Bladder wall thickening possibly due to underdistention or cystitis. Electronically signed by: Randi Almaraz MD (03/18/2019 3:58 PM) [facility]
--- NOTE | 2019-03-18 16:24 | NUR ---
Wound Care: Patient seen per wound care consult. See wound assessment. Patient has stage II pressure ulcers to the coccyx and right ischium. Recommendations for calazime cream to ulcers as patient is incontinent of bowel. No other wounds noted upon complete head to toe assessment. Dressing change instructions left in room and patient repositioned to left side. Patient on an ICU bed at this time. Spoke with RN regarding POC. Will follow patient regarding wound care.
[2019-03-19] VITALS (18 sets, daily range): BP systolic 134–171; BP diastolic 75–91
--- NOTE | 2019-03-19 00:03 | CONS ---
DATE OF CONSULTATION: 03/18/2019 REFERRING PHYSICIAN: Dr. Adan. REASON FOR CONSULTATION: UTI. HISTORY OF PRESENT ILLNESS: A 73-year-old gentleman from care home was brought to the ER with altered mental status. The patient was hypoxic, hypercarbic, requiring nonrebreather. White count was elevated at 14. UA showed pyuria. The patient was afebrile. He got a dose of Zosyn. Blood cultures were done. Urine cultures were done. Head CT, no acute changes. Chest x-ray unremarkable. The patient was admitted to ICU. ID consult has been requested for antibiotic management. The patient is unable to give any history. The patient, per chart, has been alert and oriented, but unknown baseline. He had a leg wound for which he was seen in 01/2019 in the ER. Currently, the wounds are stable. He also has coccyx wounds. PAST MEDICAL HISTORY: Schizophrenia, depression suprapubic catheter. CURRENT MEDICATIONS: One dose of Zosyn. ALLERGIES: CHLORPROMAZINE HALOPERIDOL AND TRAZODONE. REVIEW OF SYSTEMS: Unable to obtain. PHYSICAL EXAMINATION: VITAL SIGNS: Temperature 97.9, pulse 85, respiratory rate 36, blood pressure 155/87, oxygen saturation 100% on BiPAP at 35% FiO2. GENERAL: Nonverbal. The patient grimaces with tactile stimuli. Does not respond to any questions. HEENT: BiPAP is present. Normocephalic, atraumatic. NECK: Supple. LUNGS: Decreased breath sounds with expiratory rhonchi. HEART: S1, S2, no murmurs. ABDOMEN: Soft. Suprapubic catheter in place, site looks okay. EXTREMITIES: Left BKA stump looks good. Right lower extremity lymphedema, hyperkeratotic skin, superficial abrasion over the leg, not infected. Right second toe amputation site looks okay. Dry scaly skin. CENTRAL NERVOUS SYSTEM: Unable to obtain. PSYCHIATRIC: Unable to obtain. DERMATOLOGIC: No generalized rash except for above. LABORATORY DATA: WBC 14.4, hemoglobin 9.6, hematocrit 33, platelets 636, neutrophils 90, and bands 3. Sodium 139, potassium 5.0, chloride 98, bicarb 39, BUN 19, creatinine 0.8, glucose 91. Lactate 1.5. BNP 6063. Troponin less than 0.017. Lipase 35. Albumin 2.5. UA shows large leukocyte esterase, wbc's too numerous to count, many bacteria. Micro: Blood culture and urine culture pending. IMAGING: CT head, no acute intracranial pathology. Minimal atrophy and white matter changes compatible with chronic ischemic microvascular changes. Chest x-ray shows no area of consolidation. IMPRESSION: 1. Acute hypercarbic respiratory failure.On bipap 2. Leukocytosis. 3. Urinary tract infection. 4. Suprapubic catheter in place 5. Metabolic alkalosis. 6. Thrombocytosis, likely reactive. 7. History of schizophrenia and depression. 8. Altered mental status. CT head negative. 9. detention resident. 9. RECOMMENDATIONS: 1. Start the patient on Zosyn and Zyvox. 2. Exchange SPC and send repeat UA and urine culture. 3 Follow up labs and cultures. 4 Continue supportive care. Thank you for consulting Infectious Disease to participate in this patient's care. If you have any questions, do not hesitate to contact me. MICHELINE ROCHA MD DR: SERENITY/allyson JOB#: [id number] / [id number] AZRA
[2019-03-19] MEDS: PIPERACILLIN/TAZOBACTAM 3.375 GM in IV NORMAL SALINE 50ML 50 ML IV SCH ×4 (00:52→19:43)
--- NOTE | 2019-03-19 03:25 | CONS ---
DATE OF CONSULTATION: 03/18/2019 REASON FOR CONSULTATION: The patient seen in pulmonary consultation at the request of Dr. Adan for [id number] hypercapnic respiratory failure, requiring noninvasive ventilation. HISTORY OF PRESENT ILLNESS: The patient is a 73-year-old with comorbidities of hypertension, schizophrenia, chronic anemia, chronic severe protein malnutrition. He has a suprapubic catheter in place. He resides at a residential. He presented with altered mental status. He had an initial arterial blood gas revealing a pH of 7.27, PaCO2 of 96, pO2 of 97. Repeat blood gas this morning, pH of 7.36, PaCO2 of 67 and pO2 of 62. I reviewed his chest x-ray, which revealed bilateral chronic changes, no acute infiltrates or consolidation. The patient has been seen in consultation by the Infectious Disease Service and is currently being treated for sepsis, UTI. He does have a suprapubic catheter in place. He has been started on Zosyn and Zyvox. He also has had some chronic wounds. He has a previous left above-knee amputation. He has got a coccyx wound and a right extremity wound. He is currently not requiring any pressors. He had a CT head, which revealed no acute intracranial processes. He does have some chronic ischemic microvascular changes. PAST MEDICAL HISTORY: Remarkable as indicated above for chronic wound, peripheral vascular disease, previous left above-knee amputation, schizophrenia, hypertension, chronic anemia, protein malnutrition. PAST SURGICAL HISTORY: Status post left AKA. FAMILY HISTORY: Unknown. REVIEW OF SYSTEMS: Unobtainable secondary to the patient's condition. CURRENT MEDICATION: List was reviewed. ALLERGIES: LISTED TO CHLORPROMAZINE, HALOPERIDOL AND TRAZADONE. SOCIAL HISTORY: There is no history of alcohol or tobacco use. PHYSICAL EXAMINATION: VITAL SIGNS: Noted. O2 saturation currently on BiPAP greater than 92%. His T-max was 97.9. HEENT: Eyes, the sclerae were nonicteric. GENERAL: The patient appeared to be chronically malnutritioned. He had muscle wasting. You could identify all of his ribs. HEENT: Eyes, the sclerae were nonicteric. NECK: Jugular venous distention was not elevated. No lymphadenopathy. CHEST: Full expansion. LUNGS: Adequate flow, no wheezes. CARDIOVASCULAR: Regular rate and rhythm with S1, S2, no S3. ABDOMEN: Soft. EXTREMITIES: Evidence of muscle wasting left above-knee amputation. NEUROLOGIC: The patient was on BiPAP, responsive only to painful stimuli. LABORATORY DATA: Reviewed. White count was elevated. Hemoglobin and hematocrit of 9.6 and 33. Arterial blood gases indicated above. Electrolytes were noted. BUN and creatinine were noted. BNP was elevated. Albumin was low. Lipase was low. BMP, UA was noted. IMPRESSION: 1. Getek-gt-nkinlno hypoxemic hypercapnic respiratory failure, multifactorial. 2. Chronic interstitial lung disease, best seen on chest x-ray. 3. Sepsis secondary to urinary tract infection. 4. Urinary tract infection. 5. Severe protein malnutrition, present upon admission. BMI of 18. 6. Status post left above-knee amputation. 7. 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 8. Leukocytosis. 9. Acute metabolic toxic encephalopathy. PLAN: 1. We will continue support with BiPAP. 2. IV Zosyn and Zyvox. 3. Follow blood cultures and urine cultures. 4. Suprapubic catheter needing change. 5. Follow ID recommendation. 6. IV fluids. 7. Initiate tube feeding per Dobbhoff. Overall, the patient's prognosis is poor. I have noticed that he is a full code. The RN has placed a call to his DPOA. Total cumulative critical care time of 40 minutes reviewing the data, labs, chest x-ray, discussing case with Dr. Adan and RN. MALCOLM URIARTE MD DR: MICHELLE/allyson JOB#: [id number] / [id number]
--- NOTE | 2019-03-19 07:31 | PDOC ---
Infectious Disease Note Subjective: Subjective Pt on bipap nonverbal grimaces to verbal stimuli Vital Signs: Vital Signs Vital Signs Date Time Temp Pulse Resp B/P (MAP) Pulse Ox O2 Delivery O2 Flow Rate FiO2 03/19/19 07:00 79 34 134/75 (94) 99 BiPAP/CPAP 03/19/19 05:56 4.0 03/19/19 03:00 98.2 98.2 Physical Exam: PHYSICAL EXAM GENERAL: Nonverbal. The patient grimaces with tactile stimuli. Does not respond to any questions. HEENT: BiPAP is present. Normocephalic, atraumatic. NECK: Supple. LUNGS: Decreased breath sounds with expiratory rhonchi. HEART: S1, S2, no murmurs. ABDOMEN: Soft. Suprapubic catheter in place, site looks okay. EXTREMITIES: Left BKA stump looks good. Right lower extremity lymphedema, hyperkeratotic skin, superficial abrasion over the leg, not infected. Right second toe amputation site looks okay. Dry scaly skin. CENTRAL NERVOUS SYSTEM: Unable to obtain. PSYCHIATRIC: Unable to obtain. DERMATOLOGIC: No generalized rash except for above. Medications: Inpatient Meds: Current Medications Medications (Trade) Dose Ordered Sig/Paige Start Time Stop Time Status Last Admin Dose Admin Linezolid/Dextrose 300 ml @ 300 mls/hr Q12HR 03/18/19 15:00 03/18/19 23:19 300 MLS/HR Lorazepam (Ativan Inj) 1 mg PRN Q4HRS PRN 03/18/19 11:30 03/19/19 06:04 1 MG Piperacillin Sod/ Tazobactam Sod 3.375 gm/Sodium Chloride 50 ml @ 100 mls/hr Q6HRS 03/18/19 14:00 03/19/19 05:54 100 MLS/HR Sodium Chloride 1,000 ml @ 80 mls/hr [id number] 03/18/19 11:45 03/18/19 23:20 80 MLS/HR Labs: Lab Laboratory Tests Test 03/18/19 08:45 03/18/19 10:15 03/18/19 12:35 03/18/19 14:40 O2 Saturation 95 % (92-99) 91 % (92-99) Arterial Blood pH 7.30 (7.35-7.45) 7.36 (7.35-7.45) Arterial Blood pCO2 at Patient Temp 88 mmHg (35-46) 67 mmHg (35-46) Arterial Blood pO2 at Patient Temp 85 mmHg (65-108) 62 mmHg (65-108) Arterial Blood HCO3 42 mmol/L (21-28) 37 mmol/L (21-28) Arterial Blood Base Excess 13 mmol/L (-3-3) 10 mmol/L (-3-3) FiO2 40 30 Lactic Acid Level 1.5 mmol/L (0.4-2.0) Urine Collection Type Unknown Urine Color Yellow Urine Clarity Cloudy Urine pH 6.0 Urine Specific [place] 1.020 Urine Protein 30 mg/dL (NEG-TRACE) Urine Glucose (UA) Negative mg/dL (NEG) Urine Ketones (Stick) 15 mg/dL (NEG) Urine Blood Trace (NEG) Urine Nitrite Positive (NEG) Urine Bilirubin Negative (NEG) Urine Urobilinogen Dipstick 0.2 mg/dL (0.2 mg/dL) Urine Leukocyte Esterase Large (NEG) Urine RBC 3-5 /HPF (0-2) Urine WBC Tntc /HPF (0-4) Urine Amorphous Sediment Present /HPF Urine Bacteria Few /HPF (0-FEW) Urine Mucus Mod /LPF Test 03/18/19 18:25 03/19/19 01:10 Glucose (Fingerstick) 74 mg/dL (70-99) 93 mg/dL (70-99) Objective: Assessment: 1. Acute hypercarbic respiratory failure.On bipap 2. Leukocytosis. 3. Urinary tract infection. 4. Suprapubic catheter in place 5. Metabolic alkalosis. 6. Thrombocytosis, likely reactive. 7. History of schizophrenia and depression. 8. Altered mental status. CT head negative. 9. shelter resident. 9. Plan: Plan of Care cont Zosyn and Zyvox. f/u Urine culture. maintain aspiration precautions Follow up labs and cultures. Continue supportive care. MICHELINE ROCHA MD Mar 19, 2019 07:31
[2019-03-19 08:29] LABS: HEMATOCRIT 27.9 % (39.0-53.0); HEMOGLOBIN 8.3 g/dL (13.0-17.5); RED BLOOD COUNT 3.66 x10^6/uL (4.30-5.70); RED CELL DISTRIBUTION WIDTH 16.2 % (11.5-14.5); WHITE BLOOD COUNT 14.4 x10^3/uL (4.0-11.0)
[2019-03-19 08:33] LABS: CALCIUM 8.5 mg/dL (8.5-10.1); CREATININE 0.8 mg/dL (0.7-1.3); GFR 115.3; MAGNESIUM 1.8 mg/dL (1.8-2.4); POTASSIUM 3.5 mmol/L (3.5-5.1)
[2019-03-19 08:45] LABS: BASE EXCESS ABG 12 mmol/L (-3-3); HCO3 ABG 39 mmol/L (21-28); PO2 ABG 80 mmHg (65-108); SAT O2 ABG 96 % (92-99)
[2019-03-19 08:53] LABS: FIO2 ABG 35; PCO2 ABG 68 mmHg (35-46)
--- NOTE | 2019-03-19 11:38 | PDOC ---
CARDIO Progress Notes Date and Time Date of Service 03/19/19 Time of Evaluation 1110 Subjective Subjective: Other (awake, alert. Appears comfortable in bed. Able to wisper words ) Comments: thick secretions, weak cough Vitals Vitals Vital Signs Date Time Temp Pulse Resp B/P (MAP) Pulse Ox O2 Delivery O2 Flow Rate FiO2 03/19/19 11:00 93 40 171/89 (116) 95 Nasal Cannula 3.0 03/19/19 08:00 98.4 98.4 Weight Weight [ ] Input and Output Intake and Output Intake and Output 03/19/19 07:00 Intake Total 1313 ml Output Total 1080 ml Balance 233 ml Intake Oral 0 ml IV Total 1313 ml Output Urine Total 1080 ml Laboratory Labs Laboratory Tests Test 03/18/19 12:35 03/18/19 14:40 03/18/19 18:25 03/19/19 01:10 O2 Saturation 91 % (92-99) Arterial Blood pH 7.36 (7.35-7.45) Arterial Blood pCO2 at Patient Temp 67 mmHg (35-46) Arterial Blood pO2 at Patient Temp 62 mmHg (65-108) Arterial Blood HCO3 37 mmol/L (21-28) Arterial Blood Base Excess 10 mmol/L (-3-3) FiO2 30 Urine Collection Type Unknown Urine Color Yellow Urine Clarity Cloudy Urine pH 6.0 Urine Specific [place] 1.020 Urine Protein 30 mg/dL (NEG-TRACE) Urine Glucose (UA) Negative mg/dL (NEG) Urine Ketones (Stick) 15 mg/dL (NEG) Urine Blood Trace (NEG) Urine Nitrite Positive (NEG) Urine Bilirubin Negative (NEG) Urine Urobilinogen Dipstick 0.2 mg/dL (0.2 mg/dL) Urine Leukocyte Esterase Large (NEG) Urine RBC 3-5 /HPF (0-2) Urine WBC Tntc /HPF (0-4) Urine Amorphous Sediment Present /HPF Urine Bacteria Few /HPF (0-FEW) Urine Mucus Mod /LPF Glucose (Fingerstick) 74 mg/dL (70-99) 93 mg/dL (70-99) Test 03/19/19 07:40 03/19/19 08:40 White Blood Count 14.4 x10^3/uL (4.0-11.0) Red Blood Count 3.66 x10^6/uL (4.30-5.70) Hemoglobin 8.3 g/dL (13.0-17.5) Hematocrit 27.9 % (39.0-53.0) Mean Corpuscular Volume 76 fL (79-100) Mean Corpuscular Hemoglobin 23 pg (25-35) Mean Corpuscular Hemoglobin Concent 30 g/dL (31-37) Red Cell Distribution Width 16.2 % (11.5-14.5) Platelet Count 514 x10^3/uL (140-400) Sodium Level 141 mmol/L (136-145) Potassium Level 3.5 mmol/L (3.5-5.1) Chloride Level 103 mmol/L (98-107) Carbon Dioxide Level 38 mmol/L (21-32) Anion Gap 0 (6-14) Blood Urea Nitrogen 15 mg/dL (8-26) Creatinine 0.8 mg/dL (0.7-1.3) Estimated GFR (Cockcroft-Gault) 115.3 Glucose Level 72 mg/dL (70-99) Calcium Level 8.5 mg/dL (8.5-10.1) Magnesium Level 1.8 mg/dL (1.8-2.4) O2 Saturation 96 % (92-99) Arterial Blood pH 7.37 (7.35-7.45) Arterial Blood pCO2 at Patient Temp 68 mmHg (35-46) Arterial Blood pO2 at Patient Temp 80 mmHg (65-108) Arterial Blood HCO3 39 mmol/L (21-28) Arterial Blood Base Excess 12 mmol/L (-3-3) FiO2 35 Microbiology Micro Microbiology 03/18/19 Blood Culture - Preliminary, Resulted NO GROWTH AFTER 1 DAY Physical Exam Chest: Symmetric LUNGS: Other (coarse, wheezy) Heart: S1S2, RRR, other (distant heart tones ) Extremities: Other (1+ right LE edema with venous stasis changes. Left AKA) Neurology: alert, follow commands Assessment Assessment 1. Metabolic, toxic encephalopathy 2. Leukocytosis, probable sepsis 3. UTI with suprapubic catheter 4. Acute on chronic respiratory failure with ILD; off BiPAP 5. Anemia, ID; on iron replacement 6. Elevated Nt Pro BNP; CXR without pul edema. No JVD. Doubt overt HF 7. PAD; s/p left AKA 8. Hypertension; elevated 9. Anxiety, depression, schizophrenia Recommendations Await echo Follow cultures Ongoing antibioitc therapy Okay for IVFs Lung optimization; BiPAP support PRN Add hydralazine IV PRN. Will hold off on BB with significant wheezing Resume ACEi when able to take oral. ST evaluation today. LINDA LYN APRN Mar 19, 2019 11:38
[2019-03-19] MEDS: IPRATRPIUM/ALBUTEROL 0.5/2.5MG 3 ML NEBU. NEB SCH ×3 (11:42→21:22)
[2019-03-19] MEDS ORDERED: hydrALAZINE 20 MG/ML VIAL. IVP PRN (11:45)
--- NOTE | 2019-03-19 12:09 | PDOC ---
[employer] PROGRESS NOTE Chief Complaint Chief Complaint Fulminant respiratory failure UTI probable sepsis AMS History of Present Illness History of Present Illness 03/19/19 Pt seen and examined in ICU. Pt was unable to communicate during meeting, but was awake and alert. Pt appeared to be comfortably laying in bed during encounter. MARLEEN nurse. Pt's chart reviewed. Vitals/I&O Vitals/I&O: Vital Signs Date Time Temp Pulse Resp B/P (MAP) Pulse Ox O2 Delivery O2 Flow Rate FiO2 03/19/19 11:57 Nasal Cannula 3.0 03/19/19 11:52 96 03/19/19 11:00 93 40 171/89 (116) 03/19/19 08:00 98.4 98.4 I & O 03/18/19 03/18/19 03/19/19 15:00 23:00 07:00 Intake Total 1313 ml 0 ml Output Total 640 ml 175 ml 265 ml Balance -640 ml 1138 ml -265 ml Physical Exam Physical Exam: GENERAL: Nonverbal. The patient grimaces with tactile stimuli. Does not respond to any questions. HEENT: BiPAP is present. Normocephalic, atraumatic. NECK: Supple. LUNGS: Decreased breath sounds with expiratory rhonchi. HEART: S1, S2, no murmurs. ABDOMEN: Soft. Suprapubic catheter in place, site looks okay. EXTREMITIES: Left BKA stump looks good. Right lower extremity lymphedema, hyperkeratotic skin, superficial abrasion over the leg, not infected. Right second toe amputation site looks okay. Dry scaly skin. CENTRAL NERVOUS SYSTEM: Unable to obtain. PSYCHIATRIC: Unable to obtain. DERMATOLOGIC: No generalized rash except for above. General: Other (somnolent ) Heart: Regular rate, Other (distant heart tones ) Lungs: Other Abdomen: Soft Extremities: Other (1+ right LE edema with chronic venous stasis changes. left AKA) Skin: Other (RLE scaly ) Labs Labs: Laboratory Tests Test 03/18/19 12:35 03/18/19 14:40 03/18/19 18:25 03/19/19 01:10 O2 Saturation 91 % (92-99) Arterial Blood pH 7.36 (7.35-7.45) Arterial Blood pCO2 at Patient Temp 67 mmHg (35-46) Arterial Blood pO2 at Patient Temp 62 mmHg (65-108) Arterial Blood HCO3 37 mmol/L (21-28) Arterial Blood Base Excess 10 mmol/L (-3-3) FiO2 30 Urine Collection Type Unknown Urine Color Yellow Urine Clarity Cloudy Urine pH 6.0 Urine Specific [place] 1.020 Urine Protein 30 mg/dL (NEG-TRACE) Urine Glucose (UA) Negative mg/dL (NEG) Urine Ketones (Stick) 15 mg/dL (NEG) Urine Blood Trace (NEG) Urine Nitrite Positive (NEG) Urine Bilirubin Negative (NEG) Urine Urobilinogen Dipstick 0.2 mg/dL (0.2 mg/dL) Urine Leukocyte Esterase Large (NEG) Urine RBC 3-5 /HPF (0-2) Urine WBC Tntc /HPF (0-4) Urine Amorphous Sediment Present /HPF Urine Bacteria Few /HPF (0-FEW) Urine Mucus Mod /LPF Glucose (Fingerstick) 74 mg/dL (70-99) 93 mg/dL (70-99) Test 03/19/19 07:40 03/19/19 08:40 White Blood Count 14.4 x10^3/uL (4.0-11.0) Red Blood Count 3.66 x10^6/uL (4.30-5.70) Hemoglobin 8.3 g/dL (13.0-17.5) Hematocrit 27.9 % (39.0-53.0) Mean Corpuscular Volume 76 fL (79-100) Mean Corpuscular Hemoglobin 23 pg (25-35) Mean Corpuscular Hemoglobin Concent 30 g/dL (31-37) Red Cell Distribution Width 16.2 % (11.5-14.5) Platelet Count 514 x10^3/uL (140-400) Sodium Level 141 mmol/L (136-145) Potassium Level 3.5 mmol/L (3.5-5.1) Chloride Level 103 mmol/L (98-107) Carbon Dioxide Level 38 mmol/L (21-32) Anion Gap 0 (6-14) Blood Urea Nitrogen 15 mg/dL (8-26) Creatinine 0.8 mg/dL (0.7-1.3) Estimated GFR (Cockcroft-Gault) 115.3 Glucose Level 72 mg/dL (70-99) Calcium Level 8.5 mg/dL (8.5-10.1) Magnesium Level 1.8 mg/dL (1.8-2.4) O2 Saturation 96 % (92-99) Arterial Blood pH 7.37 (7.35-7.45) Arterial Blood pCO2 at Patient Temp 68 mmHg (35-46) Arterial Blood pO2 at Patient Temp 80 mmHg (65-108) Arterial Blood HCO3 39 mmol/L (21-28) Arterial Blood Base Excess 12 mmol/L (-3-3) FiO2 35 Review of Systems Review of Systems: Unable to obtain Assessment and Plan Assessmemt and Plan Assessment Fulminant respiratory failure UTI probable sepsis AMS Plan IV antibiotics- Linezolid and Zosyn per ID IV fluids until we can further clarify his cardiac status ICU monitoring Consulted infectious disease- following Consulted pulmonary- following Consulted cardiology- following Duo nebs every 4 Pt was changed from BIPAP to Nasal Canula at 3L/min DVT prophylaxis Trend labs Full code Prognosis guarded Suprapubic Catheter changes (possible nidus for infection/ UTI)- possible f/u with repeat UA Comment Review of Relevant I have reviewed the following items nir (where applicable) has been applied. Medications: Current Medications Medications (Trade) Dose Ordered Sig/Paige Route PRN Reason Start Time Stop Time Status Last Admin Dose Admin Piperacillin Sod/ Tazobactam Sod 3.375 gm/Sodium Chloride 50 ml @ 100 mls/hr Q6HRS IV 03/18/19 14:00 03/19/19 11:39 Linezolid/Dextrose 300 ml @ 300 mls/hr Q12HR IV 03/18/19 15:00 03/19/19 09:50 Albuterol/ Ipratropium (Duoneb) 3 ml RTQID NEB 03/19/19 12:00 03/19/19 11:42 BECKY HARRIS III DO Mar 19, 2019 12:09
[2019-03-19] MEDS: AA 4.25 %/CALCIUM/LYTES/D5W 1,000 ML IV SCH (12:19)
--- NOTE | 2019-03-19 13:29 | NUR ---
SS following for discharge planning. SS reviewed pt chart. Pt is from [facility], ; fax [phone]. SS contacted [facility] and verified that pt is a LTC resident from there facility and is able to return when medically stable for discharge. SS will continue to follow for discharge planning.
--- NOTE | 2019-03-19 13:30 | PDOC ---
PULMONARY PROGRESS NOTES Subjective pt off bipap appears to understand cough is weak lots of oral secretions Vitals Vital Signs Date Time Temp Pulse Resp B/P (MAP) Pulse Ox O2 Delivery O2 Flow Rate FiO2 03/19/19 13:00 80 38 141/85 (103) 94 Nasal Cannula 3.0 03/19/19 12:00 98.6 98.6 General: Alert Lungs: Wheezing, Crackles Cardiovascular: S1, S2 Abdomen: Soft Neuro Exam: Alert Extremities: Other (no chnage) Skin: Warm Labs Laboratory Tests Test 03/18/19 06:10 03/18/19 06:15 03/18/19 06:18 03/18/19 08:45 Urine Collection Type Unknown Urine Color Yellow Urine Clarity Cloudy Urine pH 6.0 Urine Specific [place] 1.020 Urine Protein 100 mg/dL (NEG-TRACE) Urine Glucose (UA) Negative mg/dL (NEG) Urine Ketones (Stick) Trace mg/dL (NEG) Urine Blood Small (NEG) Urine Nitrite Positive (NEG) Urine Bilirubin Negative (NEG) Urine Urobilinogen Dipstick 1.0 mg/dL (0.2 mg/dL) Urine Leukocyte Esterase Large (NEG) Urine RBC 0 /HPF (0-2) Urine WBC Tntc /HPF (0-4) Urine Squamous Epithelial Cells Occ /LPF Urine Bacteria Many /HPF (0-FEW) White Blood Count 14.4 x10^3/uL (4.0-11.0) Red Blood Count 4.24 x10^6/uL (4.30-5.70) Hemoglobin 9.6 g/dL (13.0-17.5) Hematocrit 33.0 % (39.0-53.0) Mean Corpuscular Volume 78 fL (79-100) Mean Corpuscular Hemoglobin 23 pg (25-35) Mean Corpuscular Hemoglobin Concent 29 g/dL (31-37) Red Cell Distribution Width 16.6 % (11.5-14.5) Platelet Count 636 x10^3/uL (140-400) Neutrophils (%) (Auto) 90 % (31-73) Lymphocytes (%) (Auto) 4 % (24-48) Monocytes (%) (Auto) 5 % (0-9) Eosinophils (%) (Auto) 0 % (0-3) Basophils (%) (Auto) 0 % (0-3) Neutrophils # (Auto) 13.0 x10^3/uL (1.8-7.7) Lymphocytes # (Auto) 0.6 x10^3/uL (1.0-4.8) Monocytes # (Auto) 0.8 x10^3/uL (0.0-1.1) Eosinophils # (Auto) 0.0 x10^3/uL (0.0-0.7) Basophils # (Auto) 0.0 x10^3/uL (0.0-0.2) Segmented Neutrophils % 89 % (35-66) Band Neutrophils % 3 % (0-9) Lymphocytes % 2 % (24-48) Monocytes % 6 % (0-10) Platelet Estimate Increased (ADEQUATE) Large Platelets Present Hypochromasia Mod Anisocytosis Present Sodium Level 139 mmol/L (136-145) Potassium Level 5.0 mmol/L (3.5-5.1) Chloride Level 98 mmol/L (98-107) Carbon Dioxide Level 39 mmol/L (21-32) Anion Gap 2 (6-14) Blood Urea Nitrogen 19 mg/dL (8-26) Creatinine 0.8 mg/dL (0.7-1.3) Estimated GFR (Cockcroft-Gault) 115.3 Glucose Level 91 mg/dL (70-99) Calcium Level 9.6 mg/dL (8.5-10.1) Total Bilirubin 0.3 mg/dL (0.2-1.0) Direct Bilirubin 0.2 mg/dL (0.0-0.2) Aspartate Amino Transf (AST/SGOT) 26 U/L (15-37) Alanine Aminotransferase (ALT/SGPT) 20 U/L (16-63) Alkaline Phosphatase 107 U/L (46-116) Troponin I Quantitative < 0.017 ng/mL (0.000-0.055) AJ-Jpp-E-Type Natriuretic Peptide 6063 pg/mL (0-124) Total Protein 7.7 g/dL (6.4-8.2) Albumin 2.5 g/dL (3.4-5.0) Triglycerides Level 59 mg/dL (0-150) Cholesterol Level 112 mg/dL (0-200) LDL Cholesterol, Calculated 63 mg/dL (0-100) VLDL Cholesterol, Calculated 12 mg/dL (0-40) Non-HDL Cholesterol Calculated 75 mg/dL (0-129) HDL Cholesterol 37 mg/dL (40-60) Cholesterol/HDL Ratio 3.0 Lipase 35 U/L (73-393) Thyroid Stimulating Hormone (TSH) 1.971 uIU/mL (0.358-3.74) O2 Saturation 96 % (92-99) 95 % (92-99) Arterial Blood pH 7.27 (7.35-7.45) 7.30 (7.35-7.45) Arterial Blood pCO2 at Patient Temp 96 mmHg (35-46) 88 mmHg (35-46) Arterial Blood pO2 at Patient Temp 97 mmHg (65-108) 85 mmHg (65-108) Arterial Blood HCO3 43 mmol/L (21-28) 42 mmol/L (21-28) Arterial Blood Base Excess 13 mmol/L (-3-3) 13 mmol/L (-3-3) FiO2 36 40 Test 03/18/19 10:15 03/18/19 12:35 03/18/19 14:40 03/18/19 18:25 Lactic Acid Level 1.5 mmol/L (0.4-2.0) O2 Saturation 91 % (92-99) Arterial Blood pH 7.36 (7.35-7.45) Arterial Blood pCO2 at Patient Temp 67 mmHg (35-46) Arterial Blood pO2 at Patient Temp 62 mmHg (65-108) Arterial Blood HCO3 37 mmol/L (21-28) Arterial Blood Base Excess 10 mmol/L (-3-3) FiO2 30 Urine Collection Type Unknown Urine Color Yellow Urine Clarity Cloudy Urine pH 6.0 Urine Specific [place] 1.020 Urine Protein 30 mg/dL (NEG-TRACE) Urine Glucose (UA) Negative mg/dL (NEG) Urine Ketones (Stick) 15 mg/dL (NEG) Urine Blood Trace (NEG) Urine Nitrite Positive (NEG) Urine Bilirubin Negative (NEG) Urine Urobilinogen Dipstick 0.2 mg/dL (0.2 mg/dL) Urine Leukocyte Esterase Large (NEG) Urine RBC 3-5 /HPF (0-2) Urine WBC Tntc /HPF (0-4) Urine Amorphous Sediment Present /HPF Urine Bacteria Few /HPF (0-FEW) Urine Mucus Mod /LPF Glucose (Fingerstick) 74 mg/dL (70-99) Test 03/19/19 01:10 03/19/19 07:40 03/19/19 08:40 Glucose (Fingerstick) 93 mg/dL (70-99) White Blood Count 14.4 x10^3/uL (4.0-11.0) Red Blood Count 3.66 x10^6/uL (4.30-5.70) Hemoglobin 8.3 g/dL (13.0-17.5) Hematocrit 27.9 % (39.0-53.0) Mean Corpuscular Volume 76 fL (79-100) Mean Corpuscular Hemoglobin 23 pg (25-35) Mean Corpuscular Hemoglobin Concent 30 g/dL (31-37) Red Cell Distribution Width 16.2 % (11.5-14.5) Platelet Count 514 x10^3/uL (140-400) Sodium Level 141 mmol/L (136-145) Potassium Level 3.5 mmol/L (3.5-5.1) Chloride Level 103 mmol/L (98-107) Carbon Dioxide Level 38 mmol/L (21-32) Anion Gap 0 (6-14) Blood Urea Nitrogen 15 mg/dL (8-26) Creatinine 0.8 mg/dL (0.7-1.3) Estimated GFR (Cockcroft-Gault) 115.3 Glucose Level 72 mg/dL (70-99) Calcium Level 8.5 mg/dL (8.5-10.1) Magnesium Level 1.8 mg/dL (1.8-2.4) O2 Saturation 96 % (92-99) Arterial Blood pH 7.37 (7.35-7.45) Arterial Blood pCO2 at Patient Temp 68 mmHg (35-46) Arterial Blood pO2 at Patient Temp 80 mmHg (65-108) Arterial Blood HCO3 39 mmol/L (21-28) Arterial Blood Base Excess 12 mmol/L (-3-3) FiO2 35 Laboratory Tests Test 03/18/19 14:40 03/18/19 18:25 03/19/19 01:10 03/19/19 07:40 Urine Collection Type Unknown Urine Color Yellow Urine Clarity Cloudy Urine pH 6.0 Urine Specific [place] 1.020 Urine Protein 30 mg/dL (NEG-TRACE) Urine Glucose (UA) Negative mg/dL (NEG) Urine Ketones (Stick) 15 mg/dL (NEG) Urine Blood Trace (NEG) Urine Nitrite Positive (NEG) Urine Bilirubin Negative (NEG) Urine Urobilinogen Dipstick 0.2 mg/dL (0.2 mg/dL) Urine Leukocyte Esterase Large (NEG) Urine RBC 3-5 /HPF (0-2) Urine WBC Tntc /HPF (0-4) Urine Amorphous Sediment Present /HPF Urine Bacteria Few /HPF (0-FEW) Urine Mucus Mod /LPF Glucose (Fingerstick) 74 mg/dL (70-99) 93 mg/dL (70-99) White Blood Count 14.4 x10^3/uL (4.0-11.0) Red Blood Count 3.66 x10^6/uL (4.30-5.70) Hemoglobin 8.3 g/dL (13.0-17.5) Hematocrit 27.9 % (39.0-53.0) Mean Corpuscular Volume 76 fL (79-100) Mean Corpuscular Hemoglobin 23 pg (25-35) Mean Corpuscular Hemoglobin Concent 30 g/dL (31-37) Red Cell Distribution Width 16.2 % (11.5-14.5) Platelet Count 514 x10^3/uL (140-400) Sodium Level 141 mmol/L (136-145) Potassium Level 3.5 mmol/L (3.5-5.1) Chloride Level 103 mmol/L (98-107) Carbon Dioxide Level 38 mmol/L (21-32) Anion Gap 0 (6-14) Blood Urea Nitrogen 15 mg/dL (8-26) Creatinine 0.8 mg/dL (0.7-1.3) Estimated GFR (Cockcroft-Gault) 115.3 Glucose Level 72 mg/dL (70-99) Calcium Level 8.5 mg/dL (8.5-10.1) Magnesium Level 1.8 mg/dL (1.8-2.4) Test 03/19/19 08:40 O2 Saturation 96 % (92-99) Arterial Blood pH 7.37 (7.35-7.45) Arterial Blood pCO2 at Patient Temp 68 mmHg (35-46) Arterial Blood pO2 at Patient Temp 80 mmHg (65-108) Arterial Blood HCO3 39 mmol/L (21-28) Arterial Blood Base Excess 12 mmol/L (-3-3) FiO2 35 Medications Active Scripts Medications Dose Route/Sig Max Daily Dose Days Date Category Dose Instructions Zinc Oxide 56.7 Gm Oint...g. 56.7 Gm TP DAILY 03/18/19 Reported Tussin (Guaifenesin) 100 Mg/5 Ml Liquid 5 Ml PO QID 10 03/18/19 Reported Flonase Allergy Relief (Fluticasone Propionate) 9.9 Ml [place].susp 2 Sprays NS DAILY 03/18/19 Reported Albuterol Sulfate Neb Soln (Albuterol Sulfate) 2.5 Mg/3 Ml Vial.neb 2.5 Mg NEB QID 12/05/18 Reported Geodon (Ziprasidone Hcl) 80 Mg Capsule 1 Cap PO BID 12/05/18 Reported Protonix (Pantoprazole Sodium) 20 Mg Tablet.dr 40 Mg PO DAILY 12/05/18 Reported Loxapine (Loxapine Succinate) 5 Mg Capsule 5 Mg PO PRN Q12HRS PRN 12/05/18 Reported Loxapine (Loxapine Succinate) 10 Mg Capsule 10 Mg PO HS 12/05/18 Reported GIVE 3 CAPSULE BY MOUTH AT BEDTIME FOR AGITATION Lisinopril 20 Mg Tablet 20 Mg PO DAILY 12/05/18 Reported HOLD FOR SBP < 110 Ferrous Sulfate 325 Mg Tablet 1 Tab PO DAILY 12/05/18 Reported Carvedilol 25 Mg Tablet 25 Mg PO BIDWMEALS 12/05/18 Reported hold for SBP < 110 and pulse < 40 Impression . IMPRESSION: 1. [id number] hypoxemic hypercapnic respiratory failure, multifactorial. 2. Chronic interstitial lung disease, best seen on chest x-ray. 3. Sepsis secondary to urinary tract infection. 4. Urinary tract infection. 5. Severe protein malnutrition, present upon admission. BMI of 18. 6. Status post left above-knee amputation. 7. 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 8. Leukocytosis. 9. Acute metabolic toxic encephalopathy. Plan . better today will have speech evaluate prn bipap iv anti bx per id iv fluids Dobbhoff if fails speech overall [facility] prognosis is poor ok to transfer to floor MALCOLM URIARTE MD Mar 19, 2019 13:30
[2019-03-19] MEDS: LACTOBACILLUS RHAMNOSUS GG 1 CAPSULE. PO SCH ×2 (15:00→20:34)
--- NOTE | 2019-03-19 15:33 | NUR ---
Bedside Swallow Evaluation completed. Please refer to full report in intervention section for additional information. Impressions: Moderate-Severe oropharyngeal dysphagia/primarily pharyngeal dysphagia. Pharyngeal dysfunction/typically aphonic voice prior to PO trials. Delayed swallow initiation, at times effortful swallow w/ decreased hyopharyngeal excursion via palp noted, as well as s/s aspiration during evaluation. No safe consistency identified. Recommendations: NPO, frequent oral care, ST f/u for dysphagia.
--- NOTE | 2019-03-19 16:50 | CARD ---
MR#: [id number] Date of Study: 03/19/2019 Ordering Physician: LINDA LYN, Referring Physician: LINDA LYN, Tech: Bridgette Garcia APPROVED REPORT EXAM: Two-dimensional and M-mode echocardiogram with Doppler and color Doppler. Other Information Quality : AverageHR: 77bpm INDICATION Elevated Troponin RISK FACTORS Hypertension 2D DIMENSIONS Left Atrium(2D)2.8 (1.6-4.0cm)IVSd1.3 (0.7-1.1cm) Aortic Root(2D)3.4 (2.0-3.7cm)LVDd5.3 (3.9-5.9cm) LVOT Diameter2.2 (1.8-2.4cm)PWd1.1 (0.7-1.1cm) LVDs4.0 (2.5-4.0cm)FS (%) 24.8 % SV66.1 mlLVEF(%)48.7 (>50%) Aortic Valve AoV Peak Saad.174.5cm/sAoV VTI35.3cm AO Peak GR.12.2mmHgLVOT VTI 23.34cm AO Mean GR.8mmHg Mitral Valve MV E Triadilg72.1cm/sMV E Peak Gr.3mmHg MV DECEL [id number] A Npprymiw56.5cm/s MV E Mean Gr.2mmHgE/A Ratio1.1 TDI Lateral E' P. V5.53cm/sMedial E' P. V5.66cm/s E/Lateral E'15.9E/Medial E'15.6 Tricuspid Valve TR P. [id number]/sRAP [id number] TR Peak Gr.[id number] LEFT VENTRICLE The left ventricle is normal size. There is mild to moderate concentric left ventricular hypertrophy. The left ventricular systolic function is normal. The Ejection Fraction is 50-55%. There is normal L V segmental wall motion. Transmitral Doppler flow pattern is Grade II-pseudonormal filling dynamics. RIGHT VENTRICLE The right ventricle is normal size. There is normal right ventricular wall thickness. The right ventr icular systolic function is normal. ATRIA The left atrium is borderline dilated. The right atrium size is normal. The interatrial septum is int act with no evidence for an atrial septal defect or patent foramen ovale as noted on 2-D or Doppler i maging. AORTIC VALVE The aortic valve is normal in structure and function. Doppler and Color Flow revealed trace aortic re gurgitation. There is no significant aortic valvular stenosis. MITRAL VALVE The mitral valve is normal in structure and function. There is no evidence of mitral valve prolapse. There is no mitral valve stenosis. Doppler and Color-flow revealed trace mitral regurgitation. TRICUSPID VALVE The tricuspid valve is normal in structure and function. Doppler and Color Flow revealed moderate tri cuspid regurgitation with an estimated PAP of 50 mmHg. There is no tricuspid valve stenosis. PULMONIC VALVE The pulmonary valve is normal in structure and function. Doppler and Color Flow revealed mild pulmoni c valvular regurgitation. GREAT VESSELS The aortic root is normal in size. The IVC is normal in size and collapses >50% with inspiration. PERICARDIAL EFFUSION There is a trace pericardial effusion. Critical Notification Critical Value: No <Conclusion> The left ventricular systolic function is normal. The Ejection Fraction is 50-55%. There is normal LV segmental wall motion. Transmitral Doppler flow pattern is Grade II-pseudonormal filling dynamics. Trace mitral regurgitation. Moderate tricuspid regurgitation with an estimated PAP of 50 mmHg. There is a trace pericardial effusion. Signed by : Remigio Adkins, Electronically Approved : 03/19/2019 16:49:41
[2019-03-20] VITALS (7 sets, daily range): BP systolic 112–181; BP diastolic 60–96
[2019-03-20] MEDS: AA 4.25 %/CALCIUM/LYTES/D5W 1,000 ML IV SCH ×2 (00:08→14:50)
[2019-03-20] MEDS: PIPERACILLIN/TAZOBACTAM 3.375 GM in IV NORMAL SALINE 50ML 50 ML IV SCH ×4 (00:09→21:47)
[2019-03-20] MEDS: IPRATRPIUM/ALBUTEROL 0.5/2.5MG 3 ML NEBU. NEB SCH ×4 (08:52→20:22)
[2019-03-20] MEDS: LACTOBACILLUS RHAMNOSUS GG 1 CAPSULE. PO SCH ×2 (09:00→21:00)
--- NOTE | 2019-03-20 09:02 | PDOC ---
Infectious Disease Note Subjective: Subjective pt more alert today on o2 by nc asking for food no f/c/n/v/d/abdo pain Vital Signs: Vital Signs Vital Signs Date Time Temp Pulse Resp B/P (MAP) Pulse Ox O2 Delivery O2 Flow Rate FiO2 03/20/19 07:00 98.7 78 36 172/92 (118) 95 Nasal Cannula 3.0 98.7 Physical Exam: PHYSICAL EXAM GENERAL: alert awake,comfortable HEENT: . Normocephalic, atraumatic. NECK: Supple. LUNGS: Decreased breath sounds at bases. no wheezing HEART: S1, S2, no murmurs. ABDOMEN: Soft. Suprapubic catheter in place, site looks okay. EXTREMITIES: Left BKA stump looks good. Right lower extremity lymphedema, hyperkeratotic skin, superficial abrasion over the leg, not infected. Right second toe amputation site looks okay. Dry scaly skin. CENTRAL NERVOUS SYSTEM: alert awake DERMATOLOGIC: No generalized rash except for above. Medications: Inpatient Meds: Current Medications Medications (Trade) Dose Ordered Sig/Paige Start Time Stop Time Status Last Admin Dose Admin Albuterol/ Ipratropium (Duoneb) 3 ml RTQID 03/19/19 12:00 03/19/19 21:22 3 ML Amino Acids/ Electrolytes/ Dextrose 1,000 ml @ 80 mls/hr [id number] 03/19/19 11:30 03/20/19 00:08 80 MLS/HR Hydralazine HCl (Apresoline Inj) 10 mg PRN Q4HRS PRN 03/19/19 11:45 Lactobacillus Rhamnosus (Culturelle) 1 cap BID 03/19/19 15:00 Linezolid/Dextrose 300 ml @ 300 mls/hr Q12HR 03/18/19 15:00 03/19/19 20:34 300 MLS/HR Lorazepam (Ativan Inj) 1 mg PRN Q4HRS PRN 03/18/19 11:30 03/19/19 06:04 1 MG Piperacillin Sod/ Tazobactam Sod 3.375 gm/Sodium Chloride 50 ml @ 100 mls/hr Q6HRS 03/18/19 14:00 03/20/19 05:07 100 MLS/HR Sodium Chloride 1,000 ml @ 80 mls/hr [id number] 03/18/19 11:45 03/19/19 11:09 DC 03/18/19 23:20 80 MLS/HR Objective: Assessment: 1. GNR Urinary tract infection 2. Leukocytosis. 3..Acute hypercarbic respiratory failure. 4. Suprapubic catheter in place,changed this admission 5. Metabolic alkalosis. 6. Thrombocytosis, likely reactive. 7. History of schizophrenia and depression. 8. Altered mental status. CT head negative. 9. alf resident. 9. Plan: Plan of Care cont Jewell marc zyvox f/u GNR in Urine culture. d./w MICHELINE Diaz MD Mar 20, 2019 09:02
--- NOTE | 2019-03-20 11:12 | PDOC ---
PULMONARY PROGRESS NOTES Subjective PT OFF BIPAP WANTS TO EAT Vitals Vital Signs Date Time Temp Pulse Resp B/P (MAP) Pulse Ox O2 Delivery O2 Flow Rate FiO2 03/20/19 09:01 94 Nasal Cannula 3.0 03/20/19 07:00 98.7 78 36 172/92 (118) 98.7 ROS: No Nausea, No Chest Pain, No Abdominal Pain, No Increase Cough General: Alert Lungs: Clear Cardiovascular: S1, S2 Abdomen: Soft Neuro Exam: Alert Extremities: Other (no chnage) Skin: Warm Labs Laboratory Tests Test 03/18/19 12:35 03/18/19 14:40 03/18/19 18:25 03/19/19 01:10 O2 Saturation 91 % (92-99) Arterial Blood pH 7.36 (7.35-7.45) Arterial Blood pCO2 at Patient Temp 67 mmHg (35-46) Arterial Blood pO2 at Patient Temp 62 mmHg (65-108) Arterial Blood HCO3 37 mmol/L (21-28) Arterial Blood Base Excess 10 mmol/L (-3-3) FiO2 30 Urine Collection Type Unknown Urine Color Yellow Urine Clarity Cloudy Urine pH 6.0 Urine Specific [place] 1.020 Urine Protein 30 mg/dL (NEG-TRACE) Urine Glucose (UA) Negative mg/dL (NEG) Urine Ketones (Stick) 15 mg/dL (NEG) Urine Blood Trace (NEG) Urine Nitrite Positive (NEG) Urine Bilirubin Negative (NEG) Urine Urobilinogen Dipstick 0.2 mg/dL (0.2 mg/dL) Urine Leukocyte Esterase Large (NEG) Urine RBC 3-5 /HPF (0-2) Urine WBC Tntc /HPF (0-4) Urine Amorphous Sediment Present /HPF Urine Bacteria Few /HPF (0-FEW) Urine Mucus Mod /LPF Glucose (Fingerstick) 74 mg/dL (70-99) 93 mg/dL (70-99) Test 03/19/19 07:40 03/19/19 08:40 White Blood Count 14.4 x10^3/uL (4.0-11.0) Red Blood Count 3.66 x10^6/uL (4.30-5.70) Hemoglobin 8.3 g/dL (13.0-17.5) Hematocrit 27.9 % (39.0-53.0) Mean Corpuscular Volume 76 fL (79-100) Mean Corpuscular Hemoglobin 23 pg (25-35) Mean Corpuscular Hemoglobin Concent 30 g/dL (31-37) Red Cell Distribution Width 16.2 % (11.5-14.5) Platelet Count 514 x10^3/uL (140-400) Sodium Level 141 mmol/L (136-145) Potassium Level 3.5 mmol/L (3.5-5.1) Chloride Level 103 mmol/L (98-107) Carbon Dioxide Level 38 mmol/L (21-32) Anion Gap 0 (6-14) Blood Urea Nitrogen 15 mg/dL (8-26) Creatinine 0.8 mg/dL (0.7-1.3) Estimated GFR (Cockcroft-Gault) 115.3 Glucose Level 72 mg/dL (70-99) Calcium Level 8.5 mg/dL (8.5-10.1) Magnesium Level 1.8 mg/dL (1.8-2.4) O2 Saturation 96 % (92-99) Arterial Blood pH 7.37 (7.35-7.45) Arterial Blood pCO2 at Patient Temp 68 mmHg (35-46) Arterial Blood pO2 at Patient Temp 80 mmHg (65-108) Arterial Blood HCO3 39 mmol/L (21-28) Arterial Blood Base Excess 12 mmol/L (-3-3) FiO2 35 Medications Active Scripts Medications Dose Route/Sig Max Daily Dose Days Date Category Dose Instructions Zinc Oxide 56.7 Gm Oint...g. 56.7 Gm TP DAILY 03/18/19 Reported Tussin (Guaifenesin) 100 Mg/5 Ml Liquid 5 Ml PO QID 10 03/18/19 Reported Flonase Allergy Relief (Fluticasone Propionate) 9.9 Ml [place].susp 2 Sprays NS DAILY 03/18/19 Reported Albuterol Sulfate Neb Soln (Albuterol Sulfate) 2.5 Mg/3 Ml Vial.neb 2.5 Mg NEB QID 12/05/18 Reported Geodon (Ziprasidone Hcl) 80 Mg Capsule 1 Cap PO BID 12/05/18 Reported Protonix (Pantoprazole Sodium) 20 Mg Tablet.dr 40 Mg PO DAILY 12/05/18 Reported Loxapine (Loxapine Succinate) 5 Mg Capsule 5 Mg PO PRN Q12HRS PRN 10/4/19 Reported Loxapine (Loxapine Succinate) 10 Mg Capsule 10 Mg PO HS 12/05/18 Reported GIVE 3 CAPSULE BY MOUTH AT BEDTIME FOR AGITATION Lisinopril 20 Mg Tablet 20 Mg PO DAILY 12/05/18 Reported HOLD FOR SBP < 110 Ferrous Sulfate 325 Mg Tablet 1 Tab PO DAILY 12/05/18 Reported Carvedilol 25 Mg Tablet 25 Mg PO BIDWMEALS 12/05/18 Reported hold for SBP < 110 and pulse < 40 Impression . IMPRESSION: 1. Lysmu-ey-lusuicn hypoxemic hypercapnic respiratory failure, multifactorial. 2. Chronic interstitial lung disease, best seen on chest x-ray. 3. Sepsis secondary to urinary tract infection. 4. Urinary tract infection. 5. Severe protein malnutrition, present upon admission. BMI of 18. 6. Status post left above-knee amputation. 7. 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 8. Leukocytosis. 9. Acute metabolic toxic encephalopathy. 10. ASPIRATION PN Plan . REFUSES DOBBHOFF MAY NEED PEG HE WANTS TO EAT IT IS CERTAINLY OK FROM MY STANDPOINT TO PROVIDE PLEASURE FEEDING IN LIGHT OF ASPIRATION OVERALL PROGNOSIS IS POOR MALCOLM URIARTE MD Mar 20, 2019 11:12
--- NOTE | 2019-03-20 16:07 | PDOC ---
PROGRESS NOTES Chief Complaint Chief Complaint Fulminant respiratory failure UTI probable sepsis AMS Emaciation bed bound status severe malnutrition Plan: PPN started continue with current setup supportive measures further recommenations base on clinical course History of Present Illness History of Present Illness 03/19/19 Pt seen and examined in ICU. Pt was unable to communicate during meeting, but was awake and alert. Pt appeared to be comfortably laying in bed during encounter. MARLEEN nurse. Pt's chart reviewed. Vitals Vitals Vital Signs Date Time Temp Pulse Resp B/P (MAP) Pulse Ox O2 Delivery O2 Flow Rate FiO2 03/20/19 15:40 98.1 78 32 147/89 (108) 95 Nasal Cannula 3.0 98.1 Physical Exam Physical Exam GENERAL: alert awake,comfortable HEENT: . Normocephalic, atraumatic. NECK: Supple. LUNGS: Decreased breath sounds at bases. no wheezing HEART: S1, S2, no murmurs. ABDOMEN: Soft. Suprapubic catheter in place, site looks okay. EXTREMITIES: Left BKA stump looks good. Right lower extremity lymphedema, hyperkeratotic skin, superficial abrasion over the leg, not infected. Right second toe amputation site looks okay. Dry scaly skin. CENTRAL NERVOUS SYSTEM: alert awake DERMATOLOGIC: No generalized rash except for above. General: Alert, Other (somnolent ) Heart: Regular rate, Other (distant heart tones ) Lungs: Clear Abdomen: Soft Extremities: Other (1+ right LE edema with chronic venous stasis changes. left AKA) Skin: Other (RLE scaly ) Assessment and Plan Assessmemt and Plan Problems Medical Problems: (1) Acute hypercapnic respiratory failure Status: Acute (2) Altered mental status Status: Acute (3) Generalized weakness Status: Acute (4) Leg wound, right Status: Acute Comment Review of Relevant I have reviewed the following items nir (where applicable) has been applied. Labs Laboratory Tests Test 03/18/19 18:25 03/19/19 01:10 03/19/19 07:40 03/19/19 08:40 Glucose (Fingerstick) 74 mg/dL (70-99) 93 mg/dL (70-99) White Blood Count 14.4 x10^3/uL (4.0-11.0) Red Blood Count 3.66 x10^6/uL (4.30-5.70) Hemoglobin 8.3 g/dL (13.0-17.5) Hematocrit 27.9 % (39.0-53.0) Mean Corpuscular Volume 76 fL (79-100) Mean Corpuscular Hemoglobin 23 pg (25-35) Mean Corpuscular Hemoglobin Concent 30 g/dL (31-37) Red Cell Distribution Width 16.2 % (11.5-14.5) Platelet Count 514 x10^3/uL (140-400) Sodium Level 141 mmol/L (136-145) Potassium Level 3.5 mmol/L (3.5-5.1) Chloride Level 103 mmol/L (98-107) Carbon Dioxide Level 38 mmol/L (21-32) Anion Gap 0 (6-14) Blood Urea Nitrogen 15 mg/dL (8-26) Creatinine 0.8 mg/dL (0.7-1.3) Estimated GFR (Cockcroft-Gault) 115.3 Glucose Level 72 mg/dL (70-99) Calcium Level 8.5 mg/dL (8.5-10.1) Magnesium Level 1.8 mg/dL (1.8-2.4) O2 Saturation 96 % (92-99) Arterial Blood pH 7.37 (7.35-7.45) Arterial Blood pCO2 at Patient Temp 68 mmHg (35-46) Arterial Blood pO2 at Patient Temp 80 mmHg (65-108) Arterial Blood HCO3 39 mmol/L (21-28) Arterial Blood Base Excess 12 mmol/L (-3-3) FiO2 35 Microbiology 03/18/19 Blood Culture - Preliminary, Resulted NO GROWTH AFTER 2 DAYS 03/18/19 Urine Culture - Final, Complete 03/18/19 Urine Culture Result 1 (ART) - Final, Complete 03/18/19 Antimicrobic Susceptibility - Final, Complete Medications Current Medications Piperacillin Sod/ Tazobactam Sod 3.375 gm/Sodium Chloride 50 ml @ 100 mls/hr 1X ONCE IV Last administered on 03/18/19at 08:01; Start 03/18/19 at 07:30; Stop 03/18/19 at 07:59; Status DC Sodium Chloride 500 ml @ 500 mls/hr 1X ONCE IV Last administered on 03/18/19at 09:28; Start 03/18/19 at 09:00; Stop 03/18/19 at 09:59; Status DC Lorazepam (Ativan Inj) 1 mg PRN Q4HRS PRN IVP ANXIETY / AGITATION Last administered on 03/20/19at 14:44; Start 03/18/19 at 11:30 Sodium Chloride 1,000 ml @ 80 mls/hr [id number] IV Last administered on 03/18/19at 23:20; Start 03/18/19 at 11:45; Stop 03/19/19 at 11:09; Status DC Piperacillin Sod/ Tazobactam Sod 3.375 gm/Sodium Chloride 50 ml @ 100 mls/hr Q6HRS IV Last administered on 03/20/19at 12:40; Start 03/18/19 at 14:00 Linezolid/Dextrose 300 ml @ 300 mls/hr Q12HR IV Last administered on 03/20/19at 09:37; Start 03/18/19 at 15:00; Stop 03/20/19 at 10:06; Status DC Albuterol/ Ipratropium (Duoneb) 3 ml RTQID NEB Last administered on 03/20/19at 12:00; Start 03/19/19 at 12:00 Amino Acids/ Electrolytes/ Dextrose 1,000 ml @ 80 mls/hr [id number] IV Last administered on 03/20/19at 14:50; Start 03/19/19 at 11:30 Hydralazine HCl (Apresoline Inj) 10 mg PRN Q4HRS PRN IVP ELEVATED BP, SEE COMMENTS Last administered on 03/20/19at 14:45; Start 03/19/19 at 11:45 Lactobacillus Rhamnosus (Culturelle) 1 cap BID PO ; Start 03/19/19 at 15:00 Active Scripts Active Reported Zinc Oxide 56.7 Gm Oint...g. 56.7 Gm TP DAILY Tussin (Guaifenesin) 100 Mg/5 Ml Liquid 5 Ml PO QID 10 Days Flonase Allergy Relief (Fluticasone Propionate) 9.9 Ml [place].susp 2 Sprays NS DAILY Albuterol Sulfate Neb Soln (Albuterol Sulfate) 2.5 Mg/3 Ml Vial.neb 2.5 Mg NEB QID Geodon (Ziprasidone Hcl) 80 Mg Capsule 1 Cap PO BID Protonix (Pantoprazole Sodium) 20 Mg Tablet.dr 40 Mg PO DAILY Loxapine (Loxapine Succinate) 5 Mg Capsule 5 Mg PO PRN Q12HRS PRN Loxapine (Loxapine Succinate) 10 Mg Capsule 10 Mg PO HS GIVE 3 CAPSULE BY MOUTH AT BEDTIME FOR AGITATION Lisinopril 20 Mg Tablet 20 Mg PO DAILY HOLD FOR SBP < 110 Ferrous Sulfate 325 Mg Tablet 1 Tab PO DAILY Carvedilol 25 Mg Tablet 25 Mg PO BIDWMEALS hold for SBP < 110 and pulse < 40 Vitals/I & O Vital Sign - Last 24 Hours 03/19/19 03/19/19 03/19/19 03/19/19 16:20 19:00 20:00 21:29 Temp 97.6 97.6 Pulse 87 Resp 48 B/P (MAP) 156/88 (110) Pulse Ox 96 98 98 O2 Delivery Nasal Cannula Nasal Cannula Nasal Cannula Nasal Cannula O2 Flow Rate 3.0 3.0 3.0 3.0 03/19/19 03/20/19 03/20/19 03/20/19 23:00 03:00 07:00 08:00 Temp 98.1 99.2 98.7 98.1 99.2 98.7 Pulse 88 77 78 Resp 36 36 36 B/P (MAP) 149/85 (106) 171/91 (117) 172/92 (118) Pulse Ox 98 95 95 O2 Delivery Nasal Cannula Nasal Cannula Nasal Cannula O2 Flow Rate 3.0 3.0 3.0 3.0 03/20/19 03/20/19 03/20/19 03/20/19 08:00 09:01 11:00 12:29 Temp 98.6 98.6 Pulse 70 Resp 36 B/P (MAP) 167/96 (119) Pulse Ox 94 96 94 O2 Delivery Nasal Cannula Nasal Cannula Nasal Cannula Nasal Cannula O2 Flow Rate 3.0 3.0 3.0 3.0 03/20/19 03/20/19 03/20/19 03/20/19 14:45 15:00 15:38 15:40 Temp 98.5 98.1 98.5 98.1 Pulse 81 76 78 Resp 36 32 B/P (MAP) 181/94 181/94 (123) 147/89 (108) Pulse Ox 93 95 O2 Delivery Nasal Cannula Nasal Cannula Nasal Cannula O2 Flow Rate 3.0 3.0 3.0 Intake and Output 103/19/19 03/20/19 15:00 23:00 07:00 Intake Total 350 ml 1100 ml Output Total 325 ml 500 ml 800 ml Balance -325 ml -150 ml 300 ml Nutrition Consultation Dietary Evaluation: Recommendations by RD: Dietary education by RD, Increase Calorie Intake, Protein supplementation, PPN/TPN Comments: Continue w/PPN at this time for short-term non-oral nutrition needs, pt is refuisng dobhoff placement at this time Expected Outcomes/Goals: PO intake to meet >75% est needs - not met, new goal established New goal 03/20: Nutrition support to meet >75% est needs while pt remains NPO Interpretation of weight loss: >7.5% in 3 months Malnutrition Findings: Weight Status: Underweight KITA BELL MD Mar 20, 2019 16:07
[2019-03-21] MEDS: PIPERACILLIN/TAZOBACTAM 3.375 GM in IV NORMAL SALINE 50ML 50 ML IV SCH ×4 (01:49→18:52)
[2019-03-21] MEDS: AA 4.25 %/CALCIUM/LYTES/D5W 1,000 ML IV SCH ×2 (01:49→18:58)
[2019-03-21 03:50] VITALS: BP 153/89
[2019-03-21 07:00] VITALS: BP 165/96
[2019-03-21] MEDS: IPRATRPIUM/ALBUTEROL 0.5/2.5MG 3 ML NEBU. NEB SCH ×4 (07:18→20:44)
[2019-03-21] MEDS ORDERED: PANTOPRAZOLE IV PUSH 40 MG VIAL. IVP ONE (08:45)
[2019-03-21] MEDS ORDERED: LABETALOL 20 MG/4 ML DISP.SYRIN. IVP PRN (08:45)
[2019-03-21] MEDS ORDERED: MORPHINE SULFATE 2 MG/ML VIAL. IV PRN (08:45)
[2019-03-21] MEDS: LACTOBACILLUS RHAMNOSUS GG 1 CAPSULE. PO SCH ×2 (09:00→20:52)
--- NOTE | 2019-03-21 09:07 | PDOC ---
PULMONARY PROGRESS NOTES Subjective on 02, weak, sob better, has cough, on home 02 3lpm Vitals Vital Signs Date Time Temp Pulse Resp B/P (MAP) Pulse Ox O2 Delivery O2 Flow Rate FiO2 03/21/19 07:19 94 Nasal Cannula 3.0 03/21/19 07:00 99.0 86 22 165/96 (119) 99.0 ROS: No Nausea, No Chest Pain, No Abdominal Pain, No Increase Cough General: Alert Lungs: Other (deminished bs) Cardiovascular: S1, S2 Abdomen: Soft Neuro Exam: Alert Extremities: Other (no chnage) Skin: Warm Medications Active Scripts Medications Dose Route/Sig Max Daily Dose Days Date Category Dose Instructions Zinc Oxide 56.7 Gm Oint...g. 56.7 Gm TP DAILY 03/18/19 Reported Tussin (Guaifenesin) 100 Mg/5 Ml Liquid 5 Ml PO QID 10 03/18/19 Reported Flonase Allergy Relief (Fluticasone Propionate) 9.9 Ml [place].susp 2 Sprays NS DAILY 03/18/19 Reported Albuterol Sulfate Neb Soln (Albuterol Sulfate) 2.5 Mg/3 Ml Vial.neb 2.5 Mg NEB QID 12/05/18 Reported Geodon (Ziprasidone Hcl) 80 Mg Capsule 1 Cap PO BID 12/05/18 Reported Protonix (Pantoprazole Sodium) 20 Mg Tablet.dr 40 Mg PO DAILY 12/05/18 Reported Loxapine (Loxapine Succinate) 5 Mg Capsule 5 Mg PO PRN Q12HRS PRN 12/05/18 Reported Loxapine (Loxapine Succinate) 10 Mg Capsule 10 Mg PO HS 12/05/18 Reported GIVE 3 CAPSULE BY MOUTH AT BEDTIME FOR AGITATION Lisinopril 20 Mg Tablet 20 Mg PO DAILY 12/05/18 Reported HOLD FOR SBP < 110 Ferrous Sulfate 325 Mg Tablet 1 Tab PO DAILY 12/05/18 Reported Carvedilol 25 Mg Tablet 25 Mg PO BIDWMEALS 12/05/18 Reported hold for SBP < 110 and pulse < 40 Impression . IMPRESSION: 1. [id number] hypoxemic hypercapnic respiratory failure, multifactorial. 2. Chronic interstitial lung disease, best seen on chest x-ray. 3. Sepsis secondary to urinary tract infection. 4. Urinary tract infection. 5. Severe protein malnutrition, present upon admission. BMI of 18. 6. Status post left above-knee amputation. 7. 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 8. Leukocytosis. 9. Acute metabolic toxic encephalopathy. 10. dysphagia, ASPIRATIONN Plan . 02 titration, BD elevated hob abx per id REFUSES DOBBHOFF MAY NEED PEG HE WANTS TO EAT IT IS CERTAINLY OK FROM MY STANDPOINT TO PROVIDE PLEASURE FEEDING IN LIGHT OF ASPIRATION, if he is DNR, DNI OVERALL PROGNOSIS IS POOR discussed w pt JENS PENN MD Mar 21, 2019 09:07
[2019-03-21 10:16] LABS: BASO % 0 % (0-3); EOS % 0 % (0-3); HEMATOCRIT 26.1 % (39.0-53.0); HEMOGLOBIN 7.3 g/dL (13.0-17.5); LYMPH # 0.7 x10^3/uL (1.0-4.8); LYMPH % 7 % (24-48); MEAN CORPUSCULAR HEMOGLOBIN 23 pg (25-35); MEAN CORPUSCULAR HGB CONC 28 g/dL (31-37); MEAN CORPUSCULAR VOLUME 84 fL (79-100); MONO # 0.7 x10^3/uL (0.0-1.1); MONO % 8 % (0-9); NEUT # 8.2 x10^3/uL (1.8-7.7); NEUT % 85 % (31-73); PLATELET COUNT 405 x10^3/uL (140-400); RED BLOOD COUNT 3.11 x10^6/uL (4.30-5.70); RED CELL DISTRIBUTION WIDTH 18.3 % (11.5-14.5); WHITE BLOOD COUNT 9.6 x10^3/uL (4.0-11.0)
--- NOTE | 2019-03-21 10:44 | PDOC ---
Infectious Disease Note Subjective Subjective c/o shoulder pain No Fever/N/V/D/SOA O2 3L Vital Sign Vital Signs Vital Signs Date Time Temp Pulse Resp B/P (MAP) Pulse Ox O2 Delivery O2 Flow Rate FiO2 03/21/19 07:19 94 Nasal Cannula 3.0 03/21/19 07:00 99.0 86 22 165/96 (119) 99.0 Physical Exam PHYSICAL EXAM GENERAL: Propped up in bed, alert in NAD HEENT: Oral cavity dry, speech is soft NECK: Supple. LUNGS: Decreased breath sounds at bases. no wheezing HEART: S1, S2, no murmurs. ABDOMEN: Soft. Suprapubic catheter in place, (03/18) EXTREMITIES: Left BKA stump looks good. Right lower extremity lymphedema, hyperkeratotic skin, superficial abrasion over the leg, not infected. Right second toe amputation site looks okay. Dry scaly skin. CENTRAL NERVOUS SYSTEM: alert awake, coop DERMATOLOGIC: No generalized rash except for above. PIV Labs Lab Laboratory Tests Test 03/21/19 09:43 White Blood Count 9.6 x10^3/uL (4.0-11.0) Red Blood Count 3.11 x10^6/uL (4.30-5.70) Hemoglobin 7.3 g/dL (13.0-17.5) Hematocrit 26.1 % (39.0-53.0) Mean Corpuscular Volume 84 fL (79-100) Mean Corpuscular Hemoglobin 23 pg (25-35) Mean Corpuscular Hemoglobin Concent 28 g/dL (31-37) Red Cell Distribution Width 18.3 % (11.5-14.5) Platelet Count 405 x10^3/uL (140-400) Neutrophils (%) (Auto) 85 % (31-73) Lymphocytes (%) (Auto) 7 % (24-48) Monocytes (%) (Auto) 8 % (0-9) Eosinophils (%) (Auto) 0 % (0-3) Basophils (%) (Auto) 0 % (0-3) Neutrophils # (Auto) 8.2 x10^3/uL (1.8-7.7) Lymphocytes # (Auto) 0.7 x10^3/uL (1.0-4.8) Monocytes # (Auto) 0.7 x10^3/uL (0.0-1.1) Eosinophils # (Auto) 0.0 x10^3/uL (0.0-0.7) Basophils # (Auto) 0.0 x10^3/uL (0.0-0.2) Micro 03/18. URINE CULTURE RES 1 Preliminary Gram negative rods 03/18. URINE CULTURE RES 1 Final Gram negative rods Klebsiella pneumoniae Antibiotic RSLT#1 Amoxicillin/Clavulanic Acid S =8 Ampicillin R>=32 Cefepime S<=0.12 Ceftriaxone S<=0.25 Cefuroxime S =2 Ciprofloxacin S<=0.25 Ertapenem S<=0.12 Gentamicin S<=1 Imipenem S<=0.25 Levofloxacin S<=0.12 Meropenem S<=0.25 Nitrofurantoin I =64 Piperacillin/Tazobactam I =32 Tetracycline R>=16 Tobramycin S<=1 Trimethoprim/Sulfa S<=20 03/18/19 Blood Culture - Preliminary, Resulted NO GROWTH AFTER 3 DAYS Objective Assessment Urinary tract infection, 03/18 with Klebsiella and GNR Leukocytosis - improved. Acute hypercarbic respiratory failure. Suprapubic catheter in place,changed 03/18 Metabolic alkalosis. Thrombocytosis, likely reactive. History of schizophrenia and depression. Altered mental status. CT head negative. care home resident. Plan Plan of Care cont Zosyn for now f/u GNR in Urine culture. D/w rn Patient seen and examined. Chart reviewed in detail. Case discussed with ELECTRONIC ASSEMBLER. Agree with above plan. AAYUSH GRACIA APRN Mar 21, 2019 10:44 MICHAEL COREAS MD Mar 21, 2019 21:31
[2019-03-21] MEDS: ENOXAPARIN 40 MG/0.4 ML SYRINGE. SQ SCH (10:52)
[2019-03-21 11:00] VITALS: BP 163/88
--- NOTE | 2019-03-21 11:53 | PDOC ---
PROGRESS NOTES Chief Complaint Chief Complaint Fulminant respiratory failure UTI , complicated Supra pubic cath probable sepsis AMS Emaciation bed bound status severe malnutrition History of Present Illness History of Present Illness t.o ICU he is nasty bec he wants to eat and FAILED BUTCHER I spent maybe 20 mins at least in room showing all the NPO signs that he cant eat STage 4 decub -SNU resident - I CONSULTED ID Wound care also has been consulted PLAN; BUTCHER eval ID consult IVF and PPI iV while nPO Turn q2 SNU on dc FULL CODE for now dw RN radha Vitals Vitals Vital Signs Date Time Temp Pulse Resp B/P (MAP) Pulse Ox O2 Delivery O2 Flow Rate FiO2 03/21/19 11:19 94 Nasal Cannula 3.0 03/21/19 07:00 99.0 86 22 165/96 (119) 99.0 Physical Exam Physical Exam GENERAL: Propped up in bed, alert in NAD HEENT: Oral cavity dry, speech is soft NECK: Supple. LUNGS: Decreased breath sounds at bases. no wheezing HEART: S1, S2, no murmurs. ABDOMEN: Soft. Suprapubic catheter in place, (03/18) EXTREMITIES: Left BKA stump looks good. Right lower extremity lymphedema, hyperkeratotic skin, superficial abrasion over the leg, not infected. Right second toe amputation site looks okay. Dry scaly skin. CENTRAL NERVOUS SYSTEM: alert awake, coop DERMATOLOGIC: No generalized rash except for above. PIV General: Alert, Oriented X3, Other (somnolent ) Heart: Regular rate, Normal S1, Normal S2, Other (distant heart tones ) Lungs: Other (deminished bs) Abdomen: Soft Extremities: No clubbing, No cyanosis, Other (1+ right LE edema with chronic venous stasis changes. left AKA) Skin: Other (RLE scaly ) Labs LABS Laboratory Tests Test 03/21/19 09:43 White Blood Count 9.6 x10^3/uL (4.0-11.0) Red Blood Count 3.11 x10^6/uL (4.30-5.70) Hemoglobin 7.3 g/dL (13.0-17.5) Hematocrit 26.1 % (39.0-53.0) Mean Corpuscular Volume 84 fL (79-100) Mean Corpuscular Hemoglobin 23 pg (25-35) Mean Corpuscular Hemoglobin Concent 28 g/dL (31-37) Red Cell Distribution Width 18.3 % (11.5-14.5) Platelet Count 405 x10^3/uL (140-400) Neutrophils (%) (Auto) 85 % (31-73) Lymphocytes (%) (Auto) 7 % (24-48) Monocytes (%) (Auto) 8 % (0-9) Eosinophils (%) (Auto) 0 % (0-3) Basophils (%) (Auto) 0 % (0-3) Neutrophils # (Auto) 8.2 x10^3/uL (1.8-7.7) Lymphocytes # (Auto) 0.7 x10^3/uL (1.0-4.8) Monocytes # (Auto) 0.7 x10^3/uL (0.0-1.1) Eosinophils # (Auto) 0.0 x10^3/uL (0.0-0.7) Basophils # (Auto) 0.0 x10^3/uL (0.0-0.2) Review of Systems Review of Systems hungry, thristy wants to drink, all else is limited Assessment and Plan Assessmemt and Plan Problems Medical Problems: (1) Acute hypercapnic respiratory failure Status: Acute (2) Altered mental status Status: Acute (3) Generalized weakness Status: Acute (4) Leg wound, right Status: Acute Comment Review of Relevant I have reviewed the following items nir (where applicable) has been applied. Labs Laboratory Tests Test 03/21/19 09:43 White Blood Count 9.6 x10^3/uL (4.0-11.0) Red Blood Count 3.11 x10^6/uL (4.30-5.70) Hemoglobin 7.3 g/dL (13.0-17.5) Hematocrit 26.1 % (39.0-53.0) Mean Corpuscular Volume 84 fL (79-100) Mean Corpuscular Hemoglobin 23 pg (25-35) Mean Corpuscular Hemoglobin Concent 28 g/dL (31-37) Red Cell Distribution Width 18.3 % (11.5-14.5) Platelet Count 405 x10^3/uL (140-400) Neutrophils (%) (Auto) 85 % (31-73) Lymphocytes (%) (Auto) 7 % (24-48) Monocytes (%) (Auto) 8 % (0-9) Eosinophils (%) (Auto) 0 % (0-3) Basophils (%) (Auto) 0 % (0-3) Neutrophils # (Auto) 8.2 x10^3/uL (1.8-7.7) Lymphocytes # (Auto) 0.7 x10^3/uL (1.0-4.8) Monocytes # (Auto) 0.7 x10^3/uL (0.0-1.1) Eosinophils # (Auto) 0.0 x10^3/uL (0.0-0.7) Basophils # (Auto) 0.0 x10^3/uL (0.0-0.2) Laboratory Tests Test 03/21/19 09:43 White Blood Count 9.6 x10^3/uL (4.0-11.0) Red Blood Count 3.11 x10^6/uL (4.30-5.70) Hemoglobin 7.3 g/dL (13.0-17.5) Hematocrit 26.1 % (39.0-53.0) Mean Corpuscular Volume 84 fL (79-100) Mean Corpuscular Hemoglobin 23 pg (25-35) Mean Corpuscular Hemoglobin Concent 28 g/dL (31-37) Red Cell Distribution Width 18.3 % (11.5-14.5) Platelet Count 405 x10^3/uL (140-400) Neutrophils (%) (Auto) 85 % (31-73) Lymphocytes (%) (Auto) 7 % (24-48) Monocytes (%) (Auto) 8 % (0-9) Eosinophils (%) (Auto) 0 % (0-3) Basophils (%) (Auto) 0 % (0-3) Neutrophils # (Auto) 8.2 x10^3/uL (1.8-7.7) Lymphocytes # (Auto) 0.7 x10^3/uL (1.0-4.8) Monocytes # (Auto) 0.7 x10^3/uL (0.0-1.1) Eosinophils # (Auto) 0.0 x10^3/uL (0.0-0.7) Basophils # (Auto) 0.0 x10^3/uL (0.0-0.2) Microbiology 03/18/19 Urine Culture - Preliminary, Resulted 03/18/19 Urine Culture Result 1 (ART) - Preliminary, Resulted 03/18/19 Blood Culture - Preliminary, Resulted NO GROWTH AFTER 3 DAYS Medications Current Medications Piperacillin Sod/ Tazobactam Sod 3.375 gm/Sodium Chloride 50 ml @ 100 mls/hr 1X ONCE IV Last administered on 03/18/19at 08:01; Start 03/18/19 at 07:30; Stop 03/18/19 at 07:59; Status DC Sodium Chloride 500 ml @ 500 mls/hr 1X ONCE IV Last administered on 03/18/19at 09:28; Start 03/18/19 at 09:00; Stop 03/18/19 at 09:59; Status DC Lorazepam (Ativan Inj) 1 mg PRN Q4HRS PRN IVP ANXIETY / AGITATION Last administered on 03/20/19at 14:44; Start 03/18/19 at 11:30 Sodium Chloride 1,000 ml @ 80 mls/hr [id number] IV Last administered on 03/18/19at 23:20; Start 03/18/19 at 11:45; Stop 03/19/19 at 11:09; Status DC Piperacillin Sod/ Tazobactam Sod 3.375 gm/Sodium Chloride 50 ml @ 100 mls/hr Q6HRS IV Last administered on 03/21/19at 06:32; Start 03/18/19 at 14:00 Linezolid/Dextrose 300 ml @ 300 mls/hr Q12HR IV Last administered on 03/20/19at 09:37; Start 03/18/19 at 15:00; Stop 03/20/19 at 10:06; Status DC Albuterol/ Ipratropium (Duoneb) 3 ml RTQID NEB Last administered on 03/21/19at 11:18; Start 03/19/19 at 12:00 Amino Acids/ Electrolytes/ Dextrose 1,000 ml @ 80 mls/hr [id number] IV Last administered on 03/21/19at 01:49; Start 03/19/19 at 11:30 Hydralazine HCl (Apresoline Inj) 10 mg PRN Q4HRS PRN IVP ELEVATED BP, SEE COMMENTS Last administered on 03/20/19at 14:45; Start 03/19/19 at 11:45 Lactobacillus Rhamnosus (Culturelle) 1 cap BID PO ; Start 03/19/19 at 15:00 Pantoprazole Sodium (PROTONIX VIAL for IV PUSH) 40 mg DAILYAC IVP ; Start 03/22/19 at 07:30 Pantoprazole Sodium (PROTONIX VIAL for IV PUSH) 40 mg 1X ONCE IVP Last administered on 03/21/19at 10:52; Start 03/21/19 at 08:45; Stop 03/21/19 at 08:46; Status DC Enoxaparin Sodium (Lovenox 40mg Syringe) 40 mg Q24H SQ Last administered on 03/21/19at 10:52; Start 03/21/19 at 09:00 Labetalol HCl (Normodyne Iv Push) 10 mg PRN Q2HR PRN IVP HYPERTENSION; Start 03/21/19 at 08:45 Morphine Sulfate (Morphine Sulfate) 2 mg PRN Q2HR PRN IV MODERATE TO SEVERE PAIN; Start 03/21/19 at 08:45 Active Scripts Active Reported Zinc Oxide 56.7 Gm Oint...g. 56.7 Gm TP DAILY Tussin (Guaifenesin) 100 Mg/5 Ml Liquid 5 Ml PO QID 10 Days Flonase Allergy Relief (Fluticasone Propionate) 9.9 Ml [place].susp 2 Sprays NS DAILY Albuterol Sulfate Neb Soln (Albuterol Sulfate) 2.5 Mg/3 Ml Vial.neb 2.5 Mg NEB QID Geodon (Ziprasidone Hcl) 80 Mg Capsule 1 Cap PO BID Protonix (Pantoprazole Sodium) 20 Mg Tablet.dr 40 Mg PO DAILY Loxapine (Loxapine Succinate) 5 Mg Capsule 5 Mg PO PRN Q12HRS PRN Loxapine (Loxapine Succinate) 10 Mg Capsule 10 Mg PO HS GIVE 3 CAPSULE BY MOUTH AT BEDTIME FOR AGITATION Lisinopril 20 Mg Tablet 20 Mg PO DAILY HOLD FOR SBP < 110 Ferrous Sulfate 325 Mg Tablet 1 Tab PO DAILY Carvedilol 25 Mg Tablet 25 Mg PO BIDWMEALS hold for SBP < 110 and pulse < 40 Vitals/I & O Vital Sign - Last 24 Hours 03/20/19 03/20/19 03/20/19 03/20/19 12:29 14:45 15:00 15:38 Temp 98.5 98.5 Pulse 81 76 Resp 36 B/P (MAP) 181/94 181/94 (123) Pulse Ox 94 93 O2 Delivery Nasal Cannula Nasal Cannula Nasal Cannula O2 Flow Rate 3.0 3.0 3.0 03/20/19 03/20/19 03/20/19 03/20/19 15:40 19:00 20:23 20:23 Temp 98.1 98.8 98.1 98.8 Pulse 78 100 Resp 32 20 B/P (MAP) 147/89 (108) 166/93 (117) Pulse Ox 95 96 O2 Delivery Nasal Cannula Nasal Cannula Nasal Cannula O2 Flow Rate 3.0 3.0 3.0 3.0 03/20/19 03/20/19 03/21/19 03/21/19 20:25 23:50 03:50 07:00 Temp 98.0 97.9 99.0 98.0 97.9 99.0 Pulse 87 90 86 Resp 20 20 22 B/P (MAP) 155/89 (111) 153/89 (110) 165/96 (119) Pulse Ox 95 96 98 O2 Delivery Nasal Cannula Nasal Cannula Nasal Cannula Nasal Cannula O2 Flow Rate 3.0 3.0 3.0 3.0 03/21/19 03/21/19 07:19 11:19 Pulse Ox 94 94 O2 Delivery Nasal Cannula Nasal Cannula O2 Flow Rate 3.0 3.0 Intake and Output 03/20/19 03/20/19 03/21/19 15:00 23:00 07:00 Intake Total 50 ml Output Total 200 ml 700 ml Balance -200 ml -650 ml Nutrition Consultation Dietary Evaluation: Recommendations by RD: Dietary education by RD, Increase Calorie Intake, Protein supplementation, PPN/TPN Comments: Continue w/PPN at this time for short-term non-oral nutrition needs, pt is refuisng dobhoff placement at this time Expected Outcomes/Goals: PO intake to meet >75% est needs - not met, new goal established New goal 03/20: Nutrition support to meet >75% est needs while pt remains NPO Interpretation of weight loss: >7.5% in 3 months Malnutrition Findings: Weight Status: Underweight ELICEO CHIU MD Mar 21, 2019 11:53
[2019-03-21 15:00] VITALS: BP 140/90
[2019-03-21 19:00] VITALS: BP 161/97
[2019-03-21 23:00] VITALS: BP 135/81
[2019-03-22] VITALS (7 sets, daily range): BP systolic 145–165; BP diastolic 85–100
[2019-03-22] MEDS ORDERED: methylPREDNISolone SOD SUCC PF 125 MG/2 ML VIAL. IV ONE (01:00)
[2019-03-22 01:14] LABS: BASE EXCESS ABG 8 mmol/L (-3-3); HCO3 ABG 37 mmol/L (21-28); PO2 ABG 58 mmHg (65-108); SAT O2 ABG 87 % (92-99)
[2019-03-22 01:18] LABS: FIO2 ABG 28; PCO2 ABG 85 mmHg (35-46)
[2019-03-22] MEDS: PIPERACILLIN/TAZOBACTAM 3.375 GM in IV NORMAL SALINE 50ML 50 ML IV SCH ×2 (01:25→05:17)
--- NOTE | 2019-03-22 04:17 | NUR ---
03/21/19 : ARELY Mendez approached this RN to see if ludwig had been emptied this shift. She was informed that it had not been but that previous shift had emptied 650 just prior to noc shift coming on. This RN inquired what RR was. Vanessa RN informed this RN that RR was 40. This RN previously had gotten 44 RR. This RN went in to assess pt - pt obtunded and barely responsive to sternal rub. RT paged to see if would do an ABG. 0010: RT in room - pt grimaced when thumb nail bed pressed hard - but did not awaken. Temp - 97.6 axilllary; HR 83, RR 44, BP 159/85. mineral wool insulation supervisor on floor for code yang on another pt. This RN went to speak with her concerning pt status - laborer beam house suggested calling a rapid response. 0011: Rapid response called. 0020: RT obtained ABG from R wrist - see labs for results. 0031: Pt aroused briefly and then returned to stuporous state. 0042: ABG results obtained. 0044: Decision made to place pt on biPAP - settings 22/6,24,35% O2 to keep sats at 90% per Dr Eliseo Coronado,RN from ICU spoke with . 0048: O2 decreased to 30% as O2 sats in the upper 90's. 0050: HR 80, BP 121/84, sats 97% on 30%. O2 decreased to 21% - sats dropped to 80's. 0057: O2 increased to back up to 30% - sats increased up to low-mid 90's. O2 decreased to 27% and sats remained 90-91%. 0115: Pt more alert - eyes open and pt looking around room. Requesting to take biPAP off - RN instructed pt needed to leave it on to help him breathe better. Pt returned to sleep. Will continue to monitor pt status closely. 00
[2019-03-22] MEDS: AA 4.25 %/CALCIUM/LYTES/D5W 1,000 ML IV SCH ×2 (06:07→21:49)
[2019-03-22] MEDS: IPRATRPIUM/ALBUTEROL 0.5/2.5MG 3 ML NEBU. NEB SCH ×4 (07:24→21:04)
[2019-03-22] MEDS: PANTOPRAZOLE IV PUSH 40 MG VIAL. IVP SCH (08:58)
[2019-03-22] MEDS: ENOXAPARIN 40 MG/0.4 ML SYRINGE. SQ SCH (09:00)
[2019-03-22] MEDS ORDERED: levOFLOXacin PER PHARMACY. MC PRN (09:00)
[2019-03-22] MEDS ORDERED: LABETALOL 20 MG/4 ML DISP.SYRIN. IVP ONE (09:00)
[2019-03-22] MEDS: LACTOBACILLUS RHAMNOSUS GG 1 CAPSULE. PO SCH ×2 (09:00→21:00)
--- NOTE | 2019-03-22 09:14 | PDOC ---
Infectious Disease Note Subjective Subjective NPO No Fever/N/V/D/SOA O2 3L Vital Sign Vital Signs Vital Signs Date Time Temp Pulse Resp B/P (MAP) Pulse Ox O2 Delivery O2 Flow Rate FiO2 03/22/19 07:26 94 Nasal Cannula 3.0 03/22/19 07:00 98.1 87 18 164/95 (118) 98.1 Physical Exam PHYSICAL EXAM GENERAL: Propped up in bed, alert in NAD HEENT: Oral cavity dry, speech is soft NECK: Supple. LUNGS: Decreased breath sounds at bases. no wheezing HEART: S1, S2, no murmurs. ABDOMEN: Soft. Suprapubic catheter in place, (03/18) EXTREMITIES: Left BKA stump looks good. Right lower extremity lymphedema, hyperkeratotic skin, superficial abrasion over the leg, not infected. Right second toe amputation site looks okay. Dry scaly skin. CENTRAL NERVOUS SYSTEM: alert awake, coop DERMATOLOGIC: No generalized rash except for above. PIV Labs Lab Laboratory Tests Test 03/21/19 09:43 03/22/19 00:13 03/22/19 00:32 White Blood Count 9.6 x10^3/uL (4.0-11.0) Red Blood Count 3.11 x10^6/uL (4.30-5.70) Hemoglobin 7.3 g/dL (13.0-17.5) Hematocrit 26.1 % (39.0-53.0) Mean Corpuscular Volume 84 fL (79-100) Mean Corpuscular Hemoglobin 23 pg (25-35) Mean Corpuscular Hemoglobin Concent 28 g/dL (31-37) Red Cell Distribution Width 18.3 % (11.5-14.5) Platelet Count 405 x10^3/uL (140-400) Neutrophils (%) (Auto) 85 % (31-73) Lymphocytes (%) (Auto) 7 % (24-48) Monocytes (%) (Auto) 8 % (0-9) Eosinophils (%) (Auto) 0 % (0-3) Basophils (%) (Auto) 0 % (0-3) Neutrophils # (Auto) 8.2 x10^3/uL (1.8-7.7) Lymphocytes # (Auto) 0.7 x10^3/uL (1.0-4.8) Monocytes # (Auto) 0.7 x10^3/uL (0.0-1.1) Eosinophils # (Auto) 0.0 x10^3/uL (0.0-0.7) Basophils # (Auto) 0.0 x10^3/uL (0.0-0.2) Erythrocyte Sedimentation Rate 50 (0-15) Glucose (Fingerstick) 90 mg/dL (70-99) O2 Saturation 87 % (92-99) Arterial Blood pH 7.26 (7.35-7.45) Arterial Blood pCO2 at Patient Temp 85 mmHg (35-46) Arterial Blood pO2 at Patient Temp 58 mmHg (65-108) Arterial Blood HCO3 37 mmol/L (21-28) Arterial Blood Base Excess 8 mmol/L (-3-3) FiO2 28 Micro 03/18. URINE CULTURE RES 1 Preliminary Gram negative rods 03/18. URINE CULTURE RES 1 Final Gram negative rods Klebsiella pneumoniae Antibiotic RSLT#1 Amoxicillin/Clavulanic Acid S =8 Ampicillin R>=32 Cefepime S<=0.12 Ceftriaxone S<=0.25 Cefuroxime S =2 Ciprofloxacin S<=0.25 Ertapenem S<=0.12 Gentamicin S<=1 Imipenem S<=0.25 Levofloxacin S<=0.12 Meropenem S<=0.25 Nitrofurantoin I =64 Piperacillin/Tazobactam I =32 Tetracycline R>=16 Tobramycin S<=1 Trimethoprim/Sulfa S<=20 03/18/19 Blood Culture - Preliminary, Resulted NO GROWTH AFTER 3 DAYS Objective Assessment Urinary tract infection, 03/18 with Klebsiella Leukocytosis - improved. Acute hypercarbic respiratory failure. Suprapubic catheter in place,changed 03/18 Metabolic alkalosis. Thrombocytosis, likely reactive. History of schizophrenia and depression. Altered mental status. CT head negative. detention resident. Plan Plan of Care Now on Levaquin per primary Probiotics Supportive care Patient seen and examined. Chart reviewed in detail. Case discussed with [employer]. Agree with above plan. AAYUSH GRACIA APRN Mar 22, 2019 09:14 MICHAEL COREAS MD Mar 22, 2019 20:10
--- NOTE | 2019-03-22 09:57 | PDOC ---
PULMONARY PROGRESS NOTES Subjective became lethargic at midnight, rn called me started on bipap, woke up on bipap, now on 02, has some sob, occ cough, is weak, on home 02 3lpm Vitals Vital Signs Date Time Temp Pulse Resp B/P (MAP) Pulse Ox O2 Delivery O2 Flow Rate FiO2 03/22/19 09:27 87 164/95 03/22/19 07:26 94 Nasal Cannula 3.0 03/22/19 07:00 98.1 18 98.1 General: Alert Lungs: Wheezing, Other (deminished bs) Cardiovascular: S1, S2 Abdomen: Soft, Non-tender Neuro Exam: Alert Extremities: Other (no chnage) Skin: Warm Labs Laboratory Tests Test 03/21/19 09:43 03/22/19 00:13 03/22/19 00:32 White Blood Count 9.6 x10^3/uL (4.0-11.0) Red Blood Count 3.11 x10^6/uL (4.30-5.70) Hemoglobin 7.3 g/dL (13.0-17.5) Hematocrit 26.1 % (39.0-53.0) Mean Corpuscular Volume 84 fL (79-100) Mean Corpuscular Hemoglobin 23 pg (25-35) Mean Corpuscular Hemoglobin Concent 28 g/dL (31-37) Red Cell Distribution Width 18.3 % (11.5-14.5) Platelet Count 405 x10^3/uL (140-400) Neutrophils (%) (Auto) 85 % (31-73) Lymphocytes (%) (Auto) 7 % (24-48) Monocytes (%) (Auto) 8 % (0-9) Eosinophils (%) (Auto) 0 % (0-3) Basophils (%) (Auto) 0 % (0-3) Neutrophils # (Auto) 8.2 x10^3/uL (1.8-7.7) Lymphocytes # (Auto) 0.7 x10^3/uL (1.0-4.8) Monocytes # (Auto) 0.7 x10^3/uL (0.0-1.1) Eosinophils # (Auto) 0.0 x10^3/uL (0.0-0.7) Basophils # (Auto) 0.0 x10^3/uL (0.0-0.2) Erythrocyte Sedimentation Rate 50 (0-15) Glucose (Fingerstick) 90 mg/dL (70-99) O2 Saturation 87 % (92-99) Arterial Blood pH 7.26 (7.35-7.45) Arterial Blood pCO2 at Patient Temp 85 mmHg (35-46) Arterial Blood pO2 at Patient Temp 58 mmHg (65-108) Arterial Blood HCO3 37 mmol/L (21-28) Arterial Blood Base Excess 8 mmol/L (-3-3) FiO2 28 Laboratory Tests Test 03/22/19 00:13 03/22/19 00:32 Glucose (Fingerstick) 90 mg/dL (70-99) O2 Saturation 87 % (92-99) Arterial Blood pH 7.26 (7.35-7.45) Arterial Blood pCO2 at Patient Temp 85 mmHg (35-46) Arterial Blood pO2 at Patient Temp 58 mmHg (65-108) Arterial Blood HCO3 37 mmol/L (21-28) Arterial Blood Base Excess 8 mmol/L (-3-3) FiO2 28 Medications Active Scripts Medications Dose Route/Sig Max Daily Dose Days Date Category Dose Instructions Zinc Oxide 56.7 Gm Oint...g. 56.7 Gm TP DAILY 03/18/19 Reported Tussin (Guaifenesin) 100 Mg/5 Ml Liquid 5 Ml PO QID 10 03/18/19 Reported Flonase Allergy Relief (Fluticasone Propionate) 9.9 Ml [place].susp 2 Sprays NS DAILY 03/18/19 Reported Albuterol Sulfate Neb Soln (Albuterol Sulfate) 2.5 Mg/3 Ml Vial.neb 2.5 Mg NEB QID 12/05/18 Reported Geodon (Ziprasidone Hcl) 80 Mg Capsule 1 Cap PO BID 12/05/18 Reported Protonix (Pantoprazole Sodium) 20 Mg Tablet.dr 40 Mg PO DAILY 12/05/18 Reported Loxapine (Loxapine Succinate) 5 Mg Capsule 5 Mg PO PRN Q12HRS PRN 12/05/18 Reported Loxapine (Loxapine Succinate) 10 Mg Capsule 10 Mg PO HS 12/05/18 Reported GIVE 3 CAPSULE BY MOUTH AT BEDTIME FOR AGITATION Lisinopril 20 Mg Tablet 20 Mg PO DAILY 12/05/18 Reported HOLD FOR SBP < 110 Ferrous Sulfate 325 Mg Tablet 1 Tab PO DAILY 12/05/18 Reported Carvedilol 25 Mg Tablet 25 Mg PO BIDWMEALS 12/05/18 Reported hold for SBP < 110 and pulse < 40 Impression . IMPRESSION: 1. Updhp-av-ngrssup hypoxemic hypercapnic respiratory failure, multifactorial. 2. Chronic interstitial lung disease, best seen on chest x-ray. 3. Sepsis secondary to urinary tract infection. 4. Urinary tract infection. 5. Severe protein malnutrition, present upon admission. BMI of 18. 6. Status post left above-knee amputation. 7. 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 8. Leukocytosis. resolved 9. Acute metabolic toxic encephalopathy. 10. dysphagia, ASPIRATION Plan . 02 titration to keep sat 90%, is a [id number] suspect last night event was due to oversedation, had ativan and morphine. avoid oversedation increase BD to q 4hrs, add ICS, may need sys steroid elevated hob abx per id REFUSES DOBBHOFF MAY NEED PEG HE WANTS TO EAT IT IS CERTAINLY OK FROM MY STANDPOINT TO PROVIDE PLEASURE FEEDING IN LIGHT OF ASPIRATION, when he is DNR, DNI OVERALL PROGNOSIS IS POOR discussed w pt JENS PENN MD Mar 22, 2019 09:57
[2019-03-22] MEDS ORDERED: BUDESONIDE 0.5 MG/2 ML NEBU. NEB ONE (10:00)
--- NOTE | 2019-03-22 11:32 | PDOC ---
PROGRESS NOTES Chief Complaint Chief Complaint Fulminant respiratory failure RESOLVED (transferred out of icu 03/20/19) UTI , complicated Supra pubic cath indwelling, recetly changed sepsis AMS resolved Emaciation. sveere pCM bed bound status, functional quadriplegia DYsaphagia - NPO< unhappy about it severe malnutrition History of Present Illness History of Present Illness t.o ICU he is nasty bec he wants to eat and FAILED [employer] I spent maybe 20 mins at least in room showing all the NPO signs that he cant eat STage 4 decub -SNU resident - I CONSULTED ID Wound care also has been consulted hgb dropped 1 gnm ESR 50s asleep i did not awaken as he will complain of his npo status again PLAN; recheck labs johnson that drop in hgb [employer] eval intermitten SO far Procalamine bec NPO, failed swallow ID consulted saturday - SUprapubic cath, changed, compliacted uti etc IVF and PPI iV while nPO Turn q2 SNU on dc FULL CODE for now bravo RN Vitals Vitals Vital Signs Date Time Temp Pulse Resp B/P (MAP) Pulse Ox O2 Delivery O2 Flow Rate FiO2 03/22/19 11:15 98 Nasal Cannula 3.0 03/22/19 09:27 87 164/95 03/22/19 07:00 98.1 18 98.1 Physical Exam Physical Exam GENERAL: Propped up in bed, alert in NAD HEENT: Oral cavity dry, speech is soft NECK: Supple. LUNGS: Decreased breath sounds at bases. no wheezing HEART: S1, S2, no murmurs. ABDOMEN: Soft. Suprapubic catheter in place, (03/18) EXTREMITIES: Left BKA stump looks good. Right lower extremity lymphedema, hyperkeratotic skin, superficial abrasion over the leg, not infected. Right second toe amputation site looks okay. Dry scaly skin. CENTRAL NERVOUS SYSTEM: alert awake, coop DERMATOLOGIC: No generalized rash except for above. PIV General: Alert, Oriented X3, Other (somnolent ) Heart: Regular rate, Normal S1, Normal S2, Other (distant heart tones ) Lungs: Wheezing, Other (deminished bs) Abdomen: Soft Extremities: No clubbing, No cyanosis, Other (1+ right LE edema with chronic venous stasis changes. left AKA) Skin: Other (RLE scaly ) Labs LABS Laboratory Tests Test 03/22/19 00:13 03/22/19 00:32 Glucose (Fingerstick) 90 mg/dL (70-99) O2 Saturation 87 % (92-99) Arterial Blood pH 7.26 (7.35-7.45) Arterial Blood pCO2 at Patient Temp 85 mmHg (35-46) Arterial Blood pO2 at Patient Temp 58 mmHg (65-108) Arterial Blood HCO3 37 mmol/L (21-28) Arterial Blood Base Excess 8 mmol/L (-3-3) FiO2 28 Review of Systems Review of Systems asleep, Assessment and Plan Assessmemt and Plan Problems Medical Problems: (1) Acute hypercapnic respiratory failure Status: Acute (2) Altered mental status Status: Acute (3) Generalized weakness Status: Acute (4) Leg wound, right Status: Acute Comment Review of Relevant I have reviewed the following items nir (where applicable) has been applied. Labs Laboratory Tests Test 03/21/19 09:43 03/22/19 00:13 03/22/19 00:32 White Blood Count 9.6 x10^3/uL (4.0-11.0) Red Blood Count 3.11 x10^6/uL (4.30-5.70) Hemoglobin 7.3 g/dL (13.0-17.5) Hematocrit 26.1 % (39.0-53.0) Mean Corpuscular Volume 84 fL (79-100) Mean Corpuscular Hemoglobin 23 pg (25-35) Mean Corpuscular Hemoglobin Concent 28 g/dL (31-37) Red Cell Distribution Width 18.3 % (11.5-14.5) Platelet Count 405 x10^3/uL (140-400) Neutrophils (%) (Auto) 85 % (31-73) Lymphocytes (%) (Auto) 7 % (24-48) Monocytes (%) (Auto) 8 % (0-9) Eosinophils (%) (Auto) 0 % (0-3) Basophils (%) (Auto) 0 % (0-3) Neutrophils # (Auto) 8.2 x10^3/uL (1.8-7.7) Lymphocytes # (Auto) 0.7 x10^3/uL (1.0-4.8) Monocytes # (Auto) 0.7 x10^3/uL (0.0-1.1) Eosinophils # (Auto) 0.0 x10^3/uL (0.0-0.7) Basophils # (Auto) 0.0 x10^3/uL (0.0-0.2) Erythrocyte Sedimentation Rate 50 (0-15) Glucose (Fingerstick) 90 mg/dL (70-99) O2 Saturation 87 % (92-99) Arterial Blood pH 7.26 (7.35-7.45) Arterial Blood pCO2 at Patient Temp 85 mmHg (35-46) Arterial Blood pO2 at Patient Temp 58 mmHg (65-108) Arterial Blood HCO3 37 mmol/L (21-28) Arterial Blood Base Excess 8 mmol/L (-3-3) FiO2 28 Laboratory Tests Test 03/22/19 00:13 03/22/19 00:32 Glucose (Fingerstick) 90 mg/dL (70-99) O2 Saturation 87 % (92-99) Arterial Blood pH 7.26 (7.35-7.45) Arterial Blood pCO2 at Patient Temp 85 mmHg (35-46) Arterial Blood pO2 at Patient Temp 58 mmHg (65-108) Arterial Blood HCO3 37 mmol/L (21-28) Arterial Blood Base Excess 8 mmol/L (-3-3) FiO2 28 Microbiology 03/18/19 Urine Culture - Final, Complete 03/18/19 Urine Culture Result 1 (ART) - Final, Complete 03/18/19 Antimicrobic Susceptibility - Final, Complete 03/18/19 Blood Culture - Preliminary, Resulted NO GROWTH AFTER 4 DAYS Medications Current Medications Piperacillin Sod/ Tazobactam Sod 3.375 gm/Sodium Chloride 50 ml @ 100 mls/hr 1X ONCE IV Last administered on 03/18/19at 08:01; Start 03/18/19 at 07:30; Stop 03/18/19 at 07:59; Status DC Sodium Chloride 500 ml @ 500 mls/hr 1X ONCE IV Last administered on 03/18/19at 09:28; Start 03/18/19 at 09:00; Stop 03/18/19 at 09:59; Status DC Lorazepam (Ativan Inj) 1 mg PRN Q4HRS PRN IVP ANXIETY / AGITATION Last administered on 03/21/19at 20:52; Start 03/18/19 at 11:30 Sodium Chloride 1,000 ml @ 80 mls/hr [id number] IV Last administered on 03/18/19at 23:20; Start 03/18/19 at 11:45; Stop 03/19/19 at 11:09; Status DC Piperacillin Sod/ Tazobactam Sod 3.375 gm/Sodium Chloride 50 ml @ 100 mls/hr Q6HRS IV Last administered on 03/22/19at 05:17; Start 03/18/19 at 14:00; Stop 03/22/19 at 08:55; Status DC Linezolid/Dextrose 300 ml @ 300 mls/hr Q12HR IV Last administered on 03/20/19at 09:37; Start 03/18/19 at 15:00; Stop 03/20/19 at 10:06; Status DC Albuterol/ Ipratropium (Duoneb) 3 ml RTQID NEB Last administered on 03/22/19at 07:24; Start 03/19/19 at 12:00; Stop 03/22/19 at 09:54; Status DC Amino Acids/ Electrolytes/ Dextrose 1,000 ml @ 80 mls/hr [id number] IV Last administered on 03/22/19at 06:07; Start 03/19/19 at 11:30 Hydralazine HCl (Apresoline Inj) 10 mg PRN Q4HRS PRN IVP ELEVATED BP, SEE COMMENTS Last administered on 03/20/19at 14:45; Start 03/19/19 at 11:45 Lactobacillus Rhamnosus (Culturelle) 1 cap BID PO ; Start 03/19/19 at 15:00 Pantoprazole Sodium (PROTONIX VIAL for IV PUSH) 40 mg DAILYAC IVP Last administered on 03/22/19at 08:58; Start 03/22/19 at 07:30 Pantoprazole Sodium (PROTONIX VIAL for IV PUSH) 40 mg 1X ONCE IVP Last administered on 03/21/19at 10:52; Start 03/21/19 at 08:45; Stop 03/21/19 at 08:46; Status DC Enoxaparin Sodium (Lovenox 40mg Syringe) 40 mg Q24H SQ Last administered on 03/22/19at 09:00; Start 03/21/19 at 09:00 Labetalol HCl (Normodyne Iv Push) 10 mg PRN Q2HR PRN IVP HYPERTENSION; Start 03/21/19 at 08:45 Morphine Sulfate (Morphine Sulfate) 2 mg PRN Q2HR PRN IV MODERATE TO SEVERE PAIN Last administered on 03/21/19at 19:00; Start 03/21/19 at 08:45 Methylprednisolone Sodium Succinate (SOLU-Medrol 125MG VIAL) 125 mg 1X ONCE IV Last administered on 03/22/19at 01:25; Start 03/22/19 at 01:00; Stop 03/22/19 at 01:02; Status DC Labetalol HCl (Normodyne Iv Push) 10 mg 1X ONCE IVP Last administered on 03/22/19at 09:27; Start 03/22/19 at 09:00; Stop 03/22/19 at 09:01; Status DC Levofloxacin/ Dextrose (Levaquin Per Pharmacy) 1 each PRN DAILY PRN MC SEE COMMENTS; Start 03/22/19 at 09:00 Levofloxacin/ Dextrose 50 ml @ 50 mls/hr Q24H IV Last administered on 03/22/19at 11:22; Start 03/22/19 at 10:00 Albuterol/ Ipratropium (Duoneb) 3 ml Q4HRS NEB Last administered on 03/22/19at 11:15; Start 03/22/19 at 12:00 Budesonide (Pulmicort) 0.5 mg RTBID NEB ; Start 03/22/19 at 20:00 Budesonide (Pulmicort) 0.5 mg 1X ONCE NEB Last administered on 03/22/19at 10:00; Start 03/22/19 at 10:00; Stop 03/22/19 at 10:01; Status DC Active Scripts Active Reported Zinc Oxide 56.7 Gm Oint...g. 56.7 Gm TP DAILY Tussin (Guaifenesin) 100 Mg/5 Ml Liquid 5 Ml PO QID 10 Days Flonase Allergy Relief (Fluticasone Propionate) 9.9 Ml [place].susp 2 Sprays NS DAILY Albuterol Sulfate Neb Soln (Albuterol Sulfate) 2.5 Mg/3 Ml Vial.neb 2.5 Mg NEB QID Geodon (Ziprasidone Hcl) 80 Mg Capsule 1 Cap PO BID Protonix (Pantoprazole Sodium) 20 Mg Tablet.dr 40 Mg PO DAILY Loxapine (Loxapine Succinate) 5 Mg Capsule 5 Mg PO PRN Q12HRS PRN Loxapine (Loxapine Succinate) 10 Mg Capsule 10 Mg PO HS GIVE 3 CAPSULE BY MOUTH AT BEDTIME FOR AGITATION Lisinopril 20 Mg Tablet 20 Mg PO DAILY HOLD FOR SBP < 110 Ferrous Sulfate 325 Mg Tablet 1 Tab PO DAILY Carvedilol 25 Mg Tablet 25 Mg PO BIDWMEALS hold for SBP < 110 and pulse < 40 Vitals/I & O Vital Sign - Last 24 Hours 03/21/19 03/21/19 03/21/19 03/21/19 15:00 16:17 19:00 19:00 Temp 97.9 98.7 97.9 98.7 Pulse 95 94 Resp 20 20 B/P (MAP) 140/90 (107) 161/97 (118) Pulse Ox 98 92 92 97 O2 Delivery Nasal Cannula Nasal Cannula Nasal Cannula Nasal Cannula O2 Flow Rate 3.0 4.0 4.0 4.0 03/21/19 03/21/19 03/21/19 03/22/19 20:00 20:45 23:00 00:10 Temp 97.8 97.6 97.8 97.6 Pulse 84 83 Resp 40 44 B/P (MAP) 135/81 (99) 159/85 (109) Pulse Ox 99 97 96 O2 Delivery Nasal Cannula Nasal Cannula Nasal Cannula Nasal Cannula O2 Flow Rate 3.0 4.0 4.0 3.0 03/22/19 03/22/19 03/22/19 03/22/19 00:42 03:00 03:01 07:00 Temp 97.5 98.1 97.5 98.1 Pulse 96 87 Resp 40 18 B/P (MAP) 145/93 (110) 164/95 (118) Pulse Ox 96 95 99 O2 Delivery BiPAP/CPAP BiPAP/CPAP BiPAP/CPAP Nasal Cannula O2 Flow Rate 4.0 4.0 03/22/19 03/22/19 03/22/19 07:26 09:27 11:15 Pulse 87 B/P (MAP) 164/95 Pulse Ox 94 98 O2 Delivery Nasal Cannula Nasal Cannula O2 Flow Rate 3.0 3.0 Intake and Output 03/21/19 03/21/19 03/22/19 15:00 23:00 07:00 Intake Total 1010 ml 906 ml Output Total 650 ml 700 ml Balance 1010 ml -650 ml 206 ml Nutrition Consultation Dietary Evaluation: Recommendations by RD: Dietary education by RD, Increase Calorie Intake, Protein supplementation, PPN/TPN Comments: Continue w/PPN at this time for short-term non-oral nutrition needs, pt is refuisng dobhoff placement at this time Expected Outcomes/Goals: PO intake to meet >75% est needs - not met, new goal established New goal 03/20: Nutrition support to meet >75% est needs while pt remains NPO Interpretation of weight loss: >7.5% in 3 months Malnutrition Findings: Weight Status: Underweight ELICEO CHIU MD Mar 22, 2019 11:32
[2019-03-22 19:15] LABS: BASO % 0 % (0-3); EOS % 0 % (0-3); HEMATOCRIT 27.7 % (39.0-53.0); HEMOGLOBIN 8.4 g/dL (13.0-17.5); LYMPH # 0.3 x10^3/uL (1.0-4.8); LYMPH % 8 % (24-48); MEAN CORPUSCULAR HEMOGLOBIN 23 pg (25-35); MEAN CORPUSCULAR HGB CONC 30 g/dL (31-37); MEAN CORPUSCULAR VOLUME 76 fL (79-100); MONO # 0.3 x10^3/uL (0.0-1.1); MONO % 7 % (0-9); NEUT # 3.7 x10^3/uL (1.8-7.7); NEUT % 85 % (31-73); PLATELET COUNT 495 x10^3/uL (140-400); RED BLOOD COUNT 3.67 x10^6/uL (4.30-5.70); RED CELL DISTRIBUTION WIDTH 16.9 % (11.5-14.5); WHITE BLOOD COUNT 4.4 x10^3/uL (4.0-11.0)
[2019-03-22 19:29] LABS: ALBUMIN 1.6 g/dL (3.4-5.0); ALBUMIN/GLOBULIN RATIO 0.3 (1.0-1.7); ALK PHOS 82 U/L (46-116); ALT (SGPT) 78 U/L (16-63); AST (SGOT) 41 U/L (15-37); BLOOD UREA NITROGEN 25 mg/dL (8-26); BUN/CREATININE RATIO 36 (6-20); CALCIUM 9.2 mg/dL (8.5-10.1); CARBON DIOXIDE 42 mmol/L (21-32); CHLORIDE 99 mmol/L (98-107); CREATININE 0.7 mg/dL (0.7-1.3); GFR 134.5; GLUCOSE 107 mg/dL (70-99); POTASSIUM 4.7 mmol/L (3.5-5.1); SODIUM 140 mmol/L (136-145); TOTAL BILIRUBIN 0.2 mg/dL (0.2-1.0); TOTAL PROTEIN 6.9 g/dL (6.4-8.2)
[2019-03-22 19:31] LABS: % BANDS 1 % (0-9); % LYMPHS 6 % (24-48); % MONOS 2 % (0-10); % SEGS 91 % (35-66); PLT ESTIMATE INCREASED (ADEQUATE)
[2019-03-22 19:32] LABS: ANISOCYTOSIS SLIGHT; HYPOCHROMIA SLIGHT; MICROCYTOSIS SLIGHT; POIKILOCYTOSIS SLIGHT
[2019-03-22 19:33] LABS: SCHISTOCYTES FEW
[2019-03-22 19:34] LABS: TARGET CELLS PRESENT
[2019-03-22] MEDS: BUDESONIDE 0.5 MG/2 ML NEBU. NEB SCH (20:00)
[2019-03-23 03:40] VITALS: BP 166/94
[2019-03-23] MEDS: IPRATRPIUM/ALBUTEROL 0.5/2.5MG 3 ML NEBU. NEB SCH ×8 (04:00→23:59)
--- NOTE | 2019-03-23 06:16 | NUR ---
Pt called RN in room. RN entered room to see what pt needed. Pt reported that he was "going to cause a scandal." RN inquired as to why pt wanted to cause a scandal. Pt stated that had been here since previous and had not been fed. Several RN's and SAND TESTER's had explained to pt that he was aspirating things into his lungs. Pt reported wanted to eat against dr's advice. RN informed pt that was his right. He requested food and RN informed him that she was not going to go against dr's orders. Pt insisted no one had informed him of the inability to eat. This RN explained to him twice during shift why pt could not have food. RN informed pt would pass information on to the dr and next shift.
[2019-03-23 07:30] VITALS: BP 167/95
[2019-03-23] MEDS: BUDESONIDE 0.5 MG/2 ML NEBU. NEB SCH ×2 (07:31→20:36)
[2019-03-23] MEDS ORDERED: BARIUM SULFATE 40% (APPLE) 148 GM PWD. PO ONE (08:30)
[2019-03-23] MEDS: LACTOBACILLUS RHAMNOSUS GG 1 CAPSULE. PO SCH ×2 (09:00→21:24)
--- NOTE | 2019-03-23 09:07 | PDOC ---
PROGRESS NOTES Chief Complaint Chief Complaint Acute hypercarbic respiratory failure. RESOLVED (transferred out of icu 03/20/19) UTI, complicated - klebsiella 03/18/2019 Supra pubic catheter indwelling, recently changed Sepsis AMS resolved Emaciation Severe protein calorie malnutrition Bed bound status, functional quadriplegia Dysaphagia - NPO Suprapubic catheter in place,changed 03/18 Metabolic alkalosis Thrombocytosis, likely reactive. History of schizophrenia and depression. Altered mental status. CT head negative. jail resident. History of Present Illness History of Present Illness Mr Valentine is a 73 yo M w/ PMHx schizophrenia, depression, urinary retention with suprapubic catheter, functional [facility]ip[facility] was brought to the ER with altered mental status. The patient was hypoxic, hypercarbic, requiring nonrebreather. White count was elevated at 14. UA showed pyuria. The patient was afebrile. He got a dose of Zosyn. Blood cultures were done. Urine cultures were done. Head CT, no acute changes. Chest x-ray unremarkable. The patient was admitted to ICU. ID consulted as well as cardiology Found with a leg wound for which he was seen in 01/2019 in the ER, coccyx wounds, and klebsiella UTI. Had catheter changed. Transferred out of ICU 03/22/2019.. Stage 4 decub -[facility] resident - I CONSULTED ID Wound care also has been consulted He is upset about NPO status. I have discussed feeding tube with him and his daughter. He tells me he can use the suprapubic catheter as a "muffler hand". He is insistent he eat despite gross aspiration of nectar thickened liquids. No CP or SOB. After discussion with his daughter they wish for DNR and would like a referral to palliative care/hospice soon. PLAN; Recheck labs johnson that drop in hgb [employer]ESS[employer] HELPER eval intermittently SO far Procalamine bec NPO, failed swallow IVF and PPI iV while nPO Turn q2 SNU on dc DNR/DNI per patient and daughter Sherif Vitals Vitals Vital Signs Date Time Temp Pulse Resp B/P (MAP) Pulse Ox O2 Delivery O2 Flow Rate FiO2 03/23/19 07:31 96 Nasal Cannula 4.0 03/23/19 07:30 98.2 92 18 167/95 (119) 98.2 Physical Exam Physical Exam GENERAL: Propped up in bed, alert in NAD HEENT: Oral cavity dry, speech is soft NECK: Supple. LUNGS: Decreased breath sounds at bases. no wheezing HEART: S1, S2, no murmurs. ABDOMEN: Soft. Suprapubic catheter in place, (03/18) EXTREMITIES: Left BKA stump looks good. Right lower extremity lymphedema, hyperkeratotic skin, superficial abrasion over the leg, not infected. Right second toe amputation site looks okay. Dry scaly skin. CENTRAL NERVOUS SYSTEM: alert awake, coop DERMATOLOGIC: No generalized rash except for above. PIV General: Alert, Oriented X3, Other (somnolent ) Heart: Regular rate, Normal S1, Normal S2, Other (distant heart tones ) Lungs: Wheezing, Other (deminished bs) Abdomen: Soft Extremities: No clubbing, No cyanosis, Other (1+ right LE edema with chronic venous stasis changes. left AKA) Skin: Other (RLE scaly ) Labs LABS Laboratory Tests Test 03/22/19 19:05 White Blood Count 4.4 x10^3/uL (4.0-11.0) Red Blood Count 3.67 x10^6/uL (4.30-5.70) Hemoglobin 8.4 g/dL (13.0-17.5) Hematocrit 27.7 % (39.0-53.0) Mean Corpuscular Volume 76 fL (79-100) Mean Corpuscular Hemoglobin 23 pg (25-35) Mean Corpuscular Hemoglobin Concent 30 g/dL (31-37) Red Cell Distribution Width 16.9 % (11.5-14.5) Platelet Count 495 x10^3/uL (140-400) Neutrophils (%) (Auto) 85 % (31-73) Lymphocytes (%) (Auto) 8 % (24-48) Monocytes (%) (Auto) 7 % (0-9) Eosinophils (%) (Auto) 0 % (0-3) Basophils (%) (Auto) 0 % (0-3) Neutrophils # (Auto) 3.7 x10^3/uL (1.8-7.7) Lymphocytes # (Auto) 0.3 x10^3/uL (1.0-4.8) Monocytes # (Auto) 0.3 x10^3/uL (0.0-1.1) Eosinophils # (Auto) 0.0 x10^3/uL (0.0-0.7) Basophils # (Auto) 0.0 x10^3/uL (0.0-0.2) Segmented Neutrophils % 91 % (35-66) Band Neutrophils % 1 % (0-9) Lymphocytes % 6 % (24-48) Monocytes % 2 % (0-10) Platelet Estimate Increased (ADEQUATE) Hypochromasia Slight Poikilocytosis Slight Anisocytosis Slight Microcytosis Slight Target Cells Present Schistocytes Few Sodium Level 140 mmol/L (136-145) Potassium Level 4.7 mmol/L (3.5-5.1) Chloride Level 99 mmol/L (98-107) Carbon Dioxide Level 42 mmol/L (21-32) Anion Gap (6-14) Blood Urea Nitrogen 25 mg/dL (8-26) Creatinine 0.7 mg/dL (0.7-1.3) Estimated GFR (Cockcroft-Gault) 134.5 BUN/Creatinine Ratio 36 (6-20) Glucose Level 107 mg/dL (70-99) Calcium Level 9.2 mg/dL (8.5-10.1) Total Bilirubin 0.2 mg/dL (0.2-1.0) Aspartate Amino Transf (AST/SGOT) 41 U/L (15-37) Alanine Aminotransferase (ALT/SGPT) 78 U/L (16-63) Alkaline Phosphatase 82 U/L (46-116) Total Protein 6.9 g/dL (6.4-8.2) Albumin 1.6 g/dL (3.4-5.0) Albumin/Globulin Ratio 0.3 (1.0-1.7) Assessment and Plan Assessmemt and Plan Problems Medical Problems: (1) Acute hypercapnic respiratory failure Status: Acute (2) Altered mental status Status: Acute (3) Generalized weakness Status: Acute (4) Leg wound, right Status: Acute Comment Review of Relevant I have reviewed the following items nir (where applicable) has been applied. Labs Laboratory Tests Test 03/21/19 09:43 03/22/19 00:13 03/22/19 00:32 03/22/19 19:05 White Blood Count 9.6 x10^3/uL (4.0-11.0) 4.4 x10^3/uL (4.0-11.0) Red Blood Count 3.11 x10^6/uL (4.30-5.70) 3.67 x10^6/uL (4.30-5.70) Hemoglobin 7.3 g/dL (13.0-17.5) 8.4 g/dL (13.0-17.5) Hematocrit 26.1 % (39.0-53.0) 27.7 % (39.0-53.0) Mean Corpuscular Volume 84 fL (79-100) 76 fL (79-100) Mean Corpuscular Hemoglobin 23 pg (25-35) 23 pg (25-35) Mean Corpuscular Hemoglobin Concent 28 g/dL (31-37) 30 g/dL (31-37) Red Cell Distribution Width 18.3 % (11.5-14.5) 16.9 % (11.5-14.5) Platelet Count 405 x10^3/uL (140-400) 495 x10^3/uL (140-400) Neutrophils (%) (Auto) 85 % (31-73) 85 % (31-73) Lymphocytes (%) (Auto) 7 % (24-48) 8 % (24-48) Monocytes (%) (Auto) 8 % (0-9) 7 % (0-9) Eosinophils (%) (Auto) 0 % (0-3) 0 % (0-3) Basophils (%) (Auto) 0 % (0-3) 0 % (0-3) Neutrophils # (Auto) 8.2 x10^3/uL (1.8-7.7) 3.7 x10^3/uL (1.8-7.7) Lymphocytes # (Auto) 0.7 x10^3/uL (1.0-4.8) 0.3 x10^3/uL (1.0-4.8) Monocytes # (Auto) 0.7 x10^3/uL (0.0-1.1) 0.3 x10^3/uL (0.0-1.1) Eosinophils # (Auto) 0.0 x10^3/uL (0.0-0.7) 0.0 x10^3/uL (0.0-0.7) Basophils # (Auto) 0.0 x10^3/uL (0.0-0.2) 0.0 x10^3/uL (0.0-0.2) Erythrocyte Sedimentation Rate 50 (0-15) Glucose (Fingerstick) 90 mg/dL (70-99) O2 Saturation 87 % (92-99) Arterial Blood pH 7.26 (7.35-7.45) Arterial Blood pCO2 at Patient Temp 85 mmHg (35-46) Arterial Blood pO2 at Patient Temp 58 mmHg (65-108) Arterial Blood HCO3 37 mmol/L (21-28) Arterial Blood Base Excess 8 mmol/L (-3-3) FiO2 28 Segmented Neutrophils % 91 % (35-66) Band Neutrophils % 1 % (0-9) Lymphocytes % 6 % (24-48) Monocytes % 2 % (0-10) Platelet Estimate Increased (ADEQUATE) Hypochromasia Slight Poikilocytosis Slight Anisocytosis Slight Microcytosis Slight Target Cells Present Schistocytes Few Sodium Level 140 mmol/L (136-145) Potassium Level 4.7 mmol/L (3.5-5.1) Chloride Level 99 mmol/L (98-107) Carbon Dioxide Level 42 mmol/L (21-32) Anion Gap (6-14) Blood Urea Nitrogen 25 mg/dL (8-26) Creatinine 0.7 mg/dL (0.7-1.3) Estimated GFR (Cockcroft-Gault) 134.5 BUN/Creatinine Ratio 36 (6-20) Glucose Level 107 mg/dL (70-99) Calcium Level 9.2 mg/dL (8.5-10.1) Total Bilirubin 0.2 mg/dL (0.2-1.0) Aspartate Amino Transf (AST/SGOT) 41 U/L (15-37) Alanine Aminotransferase (ALT/SGPT) 78 U/L (16-63) Alkaline Phosphatase 82 U/L (46-116) Total Protein 6.9 g/dL (6.4-8.2) Albumin 1.6 g/dL (3.4-5.0) Albumin/Globulin Ratio 0.3 (1.0-1.7) Laboratory Tests Test 03/22/19 19:05 White Blood Count 4.4 x10^3/uL (4.0-11.0) Red Blood Count 3.67 x10^6/uL (4.30-5.70) Hemoglobin 8.4 g/dL (13.0-17.5) Hematocrit 27.7 % (39.0-53.0) Mean Corpuscular Volume 76 fL (79-100) Mean Corpuscular Hemoglobin 23 pg (25-35) Mean Corpuscular Hemoglobin Concent 30 g/dL (31-37) Red Cell Distribution Width 16.9 % (11.5-14.5) Platelet Count 495 x10^3/uL (140-400) Neutrophils (%) (Auto) 85 % (31-73) Lymphocytes (%) (Auto) 8 % (24-48) Monocytes (%) (Auto) 7 % (0-9) Eosinophils (%) (Auto) 0 % (0-3) Basophils (%) (Auto) 0 % (0-3) Neutrophils # (Auto) 3.7 x10^3/uL (1.8-7.7) Lymphocytes # (Auto) 0.3 x10^3/uL (1.0-4.8) Monocytes # (Auto) 0.3 x10^3/uL (0.0-1.1) Eosinophils # (Auto) 0.0 x10^3/uL (0.0-0.7) Basophils # (Auto) 0.0 x10^3/uL (0.0-0.2) Segmented Neutrophils % 91 % (35-66) Band Neutrophils % 1 % (0-9) Lymphocytes % 6 % (24-48) Monocytes % 2 % (0-10) Platelet Estimate Increased (ADEQUATE) Hypochromasia Slight Poikilocytosis Slight Anisocytosis Slight Microcytosis Slight Target Cells Present Schistocytes Few Sodium Level 140 mmol/L (136-145) Potassium Level 4.7 mmol/L (3.5-5.1) Chloride Level 99 mmol/L (98-107) Carbon Dioxide Level 42 mmol/L (21-32) Anion Gap (6-14) Blood Urea Nitrogen 25 mg/dL (8-26) Creatinine 0.7 mg/dL (0.7-1.3) Estimated GFR (Cockcroft-Gault) 134.5 BUN/Creatinine Ratio 36 (6-20) Glucose Level 107 mg/dL (70-99) Calcium Level 9.2 mg/dL (8.5-10.1) Total Bilirubin 0.2 mg/dL (0.2-1.0) Aspartate Amino Transf (AST/SGOT) 41 U/L (15-37) Alanine Aminotransferase (ALT/SGPT) 78 U/L (16-63) Alkaline Phosphatase 82 U/L (46-116) Total Protein 6.9 g/dL (6.4-8.2) Albumin 1.6 g/dL (3.4-5.0) Albumin/Globulin Ratio 0.3 (1.0-1.7) Microbiology 03/18/19 Urine Culture - Final, Complete 03/18/19 Urine Culture Result 1 (ART) - Final, Complete 03/18/19 Antimicrobic Susceptibility - Final, Complete 03/18/19 Blood Culture - Preliminary, Resulted NO GROWTH AFTER 4 DAYS Medications Current Medications Piperacillin Sod/ Tazobactam Sod 3.375 gm/Sodium Chloride 50 ml @ 100 mls/hr 1X ONCE IV Last administered on 03/18/19at 08:01; Start 03/18/19 at 07:30; Stop 03/18/19 at 07:59; Status DC Sodium Chloride 500 ml @ 500 mls/hr 1X ONCE IV Last administered on 03/18/19at 09:28; Start 03/18/19 at 09:00; Stop 03/18/19 at 09:59; Status DC Lorazepam (Ativan Inj) 1 mg PRN Q4HRS PRN IVP ANXIETY / AGITATION Last administered on 03/21/19at 20:52; Start 03/18/19 at 11:30 Sodium Chloride 1,000 ml @ 80 mls/hr [id number] IV Last administered on 03/18/19at 23:20; Start 03/18/19 at 11:45; Stop 03/19/19 at 11:09; Status DC Piperacillin Sod/ Tazobactam Sod 3.375 gm/Sodium Chloride 50 ml @ 100 mls/hr Q6HRS IV Last administered on 03/22/19at 05:17; Start 03/18/19 at 14:00; Stop 03/22/19 at 08:55; Status DC Linezolid/Dextrose 300 ml @ 300 mls/hr Q12HR IV Last administered on 03/20/19at 09:37; Start 03/18/19 at 15:00; Stop 03/20/19 at 10:06; Status DC Albuterol/ Ipratropium (Duoneb) 3 ml RTQID NEB Last administered on 03/22/19at 07:24; Start 03/19/19 at 12:00; Stop 03/22/19 at 09:54; Status DC Amino Acids/ Electrolytes/ Dextrose 1,000 ml @ 80 mls/hr [id number] IV Last administered on 03/22/19at 21:49; Start 03/19/19 at 11:30 Hydralazine HCl (Apresoline Inj) 10 mg PRN Q4HRS PRN IVP ELEVATED BP, 1ST CHOICE Last administered on 03/20/19at 14:45; Start 03/19/19 at 11:45 Lactobacillus Rhamnosus (Culturelle) 1 cap BID PO ; Start 03/19/19 at 15:00 Pantoprazole Sodium (PROTONIX VIAL for IV PUSH) 40 mg DAILYAC IVP Last administered on 03/22/19at 08:58; Start 03/22/19 at 07:30 Pantoprazole Sodium (PROTONIX VIAL for IV PUSH) 40 mg 1X ONCE IVP Last administered on 03/21/19at 10:52; Start 03/21/19 at 08:45; Stop 03/21/19 at 08:46; Status DC Enoxaparin Sodium (Lovenox 40mg Syringe) 40 mg Q24H SQ Last administered on 03/22/19at 09:00; Start 03/21/19 at 09:00 Labetalol HCl (Normodyne Iv Push) 10 mg PRN Q2HR PRN IVP HYPERTENSION, 2ND CHOICE; Start 03/21/19 at 08:45 Morphine Sulfate (Morphine Sulfate) 2 mg PRN Q2HR PRN IV MODERATE TO SEVERE PAIN Last administered on 03/21/19at 19:00; Start 03/21/19 at 08:45 Methylprednisolone Sodium Succinate (SOLU-Medrol 125MG VIAL) 125 mg 1X ONCE IV Last administered on 03/22/19at 01:25; Start 03/22/19 at 01:00; Stop 03/22/19 at 01:02; Status DC Labetalol HCl (Normodyne Iv Push) 10 mg 1X ONCE IVP Last administered on 03/22/19at 09:27; Start 03/22/19 at 09:00; Stop 03/22/19 at 09:01; Status DC Levofloxacin/ Dextrose (Levaquin Per Pharmacy) 1 each PRN DAILY PRN MC SEE COM MENTS; Start 03/22/19 at 09:00 Levofloxacin/ Dextrose 50 ml @ 50 mls/hr Q24H IV Last administered on 03/22/19at 11:22; Start 03/22/19 at 10:00 Albuterol/ Ipratropium (Duoneb) 3 ml Q4HRS NEB Last administered on 03/23/19at 07:31; Start 03/22/19 at 12:00 Budesonide (Pulmicort) 0.5 mg RTBID NEB Last administered on 03/23/19at 07:31; Start 03/22/19 at 20:00 Budesonide (Pulmicort) 0.5 mg 1X ONCE NEB Last administered on 03/22/19at 10:00; Start 03/22/19 at 10:00; Stop 03/22/19 at 10:01; Status DC Barium Sulfate (Varibar Thin Liquid Apple) 148 gm 1X ONCE PO ; Start 03/23/19 at 08:30; Stop 03/23/19 at 08:31; Status DC Active Scripts Active Reported Zinc Oxide 56.7 Gm Oint...g. 56.7 Gm TP DAILY Tussin (Guaifenesin) 100 Mg/5 Ml Liquid 5 Ml PO QID 10 Days Flonase Allergy Relief (Fluticasone Propionate) 9.9 Ml [place].susp 2 Sprays NS DAILY Albuterol Sulfate Neb Soln (Albuterol Sulfate) 2.5 Mg/3 Ml Vial.neb 2.5 Mg NEB QID Geodon (Ziprasidone Hcl) 80 Mg Capsule 1 Cap PO BID Protonix (Pantoprazole Sodium) 20 Mg Tablet.dr 40 Mg PO DAILY Loxapine (Loxapine Succinate) 5 Mg Capsule 5 Mg PO PRN Q12HRS PRN Loxapine (Loxapine Succinate) 10 Mg Capsule 10 Mg PO HS GIVE 3 CAPSULE BY MOUTH AT BEDTIME FOR AGITATION Lisinopril 20 Mg Tablet 20 Mg PO DAILY HOLD FOR SBP < 110 Ferrous Sulfate 325 Mg Tablet 1 Tab PO DAILY Carvedilol 25 Mg Tablet 25 Mg PO BIDWMEALS hold for SBP < 110 and pulse < 40 Vitals/I & O Vital Sign - Last 24 Hours 03/22/19 03/22/19 03/22/19 03/22/19 09:27 11:00 11:15 15:00 Temp 98.2 97.5 98.2 97.5 Pulse 87 77 78 Resp 18 18 B/P (MAP) 164/95 156/87 (110) 149/88 (108) Pulse Ox 97 98 100 O2 Delivery Nasal Cannula Nasal Cannula Nasal Cannula O2 Flow Rate 4.0 3.0 4.0 03/22/19 03/22/19 03/22/19 03/22/19 15:34 19:32 19:40 21:04 Temp 98.5 98.5 Pulse 76 Resp 20 B/P (MAP) 149/88 (108) Pulse Ox 99 100 93 O2 Delivery Nasal Cannula Nasal Cannula Nasal Cannula Nasal Cannula O2 Flow Rate 3.0 4.0 4.0 4.0 03/22/19 03/23/19 03/23/19 03/23/19 23:44 03:40 07:30 07:31 Temp 99.0 98.2 98.2 99.0 98.2 98.2 Pulse 88 87 92 Resp 20 20 18 B/P (MAP) 165/100 (121) 166/94 (118) 167/95 (119) Pulse Ox 100 99 99 96 O2 Delivery Nasal Cannula Nasal Cannula Nasal Cannula Nasal Cannula O2 Flow Rate 4.0 4.0 4.0 4.0 Intake and Output 03/22/19 03/22/19 03/23/19 15:00 23:00 07:00 Intake Total 1076 ml 0 ml Output Total 500 ml 450 ml Balance 576 ml -450 ml Nutrition Consultation Dietary Evaluation: Recommendations by RD: Dietary education by RD, Increase Calorie Intake, Protein supplementation, PPN/TPN Comments: Continue w/PPN at this time for short-term non-oral nutrition needs, pt is refuisng dobhoff placement at this time Expected Outcomes/Goals: PO intake to meet >75% est needs - not met, new goal established New goal 03/20: Nutrition support to meet >75% est needs while pt remains NPO Interpretation of weight loss: >7.5% in 3 months Malnutrition Findings: Weight Status: Underweight SHAWNEE BLANCHARD MD Mar 23, 2019 09:07
--- NOTE | 2019-03-23 09:17 | PDOC ---
Infectious Disease Note Subjective Subjective NPO asking about eating Still occ cough No Fever/N/V/D/SOA O2 4L ROS ROS o/w neg Vital Sign Vital Signs Vital Signs Date Time Temp Pulse Resp B/P (MAP) Pulse Ox O2 Delivery O2 Flow Rate FiO2 03/23/19 07:31 96 Nasal Cannula 4.0 03/23/19 07:30 98.2 92 18 167/95 (119) 98.2 Physical Exam PHYSICAL EXAM GENERAL: Propped up in bed, alert in NAD appears comfortable HEENT: Oral cavity dry - poor dentition, speech is soft NECK: Supple. LUNGS: Decreased breath sounds at bases. no wheezing HEART: S1, S2, no murmurs. ABDOMEN: Soft.NT : Suprapubic catheter in place, (03/18) EXTREMITIES: Left BKA stump looks good. Right lower extremity lymphedema, hyperkeratotic skin, superficial abrasion over the leg, not infected. Right second toe amputation site looks okay. Dry scaly skin. CENTRAL NERVOUS SYSTEM: alert awake, coop DERMATOLOGIC: No generalized rash except for above. PIV Labs Lab Laboratory Tests Test 03/22/19 19:05 White Blood Count 4.4 x10^3/uL (4.0-11.0) Red Blood Count 3.67 x10^6/uL (4.30-5.70) Hemoglobin 8.4 g/dL (13.0-17.5) Hematocrit 27.7 % (39.0-53.0) Mean Corpuscular Volume 76 fL (79-100) Mean Corpuscular Hemoglobin 23 pg (25-35) Mean Corpuscular Hemoglobin Concent 30 g/dL (31-37) Red Cell Distribution Width 16.9 % (11.5-14.5) Platelet Count 495 x10^3/uL (140-400) Neutrophils (%) (Auto) 85 % (31-73) Lymphocytes (%) (Auto) 8 % (24-48) Monocytes (%) (Auto) 7 % (0-9) Eosinophils (%) (Auto) 0 % (0-3) Basophils (%) (Auto) 0 % (0-3) Neutrophils # (Auto) 3.7 x10^3/uL (1.8-7.7) Lymphocytes # (Auto) 0.3 x10^3/uL (1.0-4.8) Monocytes # (Auto) 0.3 x10^3/uL (0.0-1.1) Eosinophils # (Auto) 0.0 x10^3/uL (0.0-0.7) Basophils # (Auto) 0.0 x10^3/uL (0.0-0.2) Segmented Neutrophils % 91 % (35-66) Band Neutrophils % 1 % (0-9) Lymphocytes % 6 % (24-48) Monocytes % 2 % (0-10) Platelet Estimate Increased (ADEQUATE) Hypochromasia Slight Poikilocytosis Slight Anisocytosis Slight Microcytosis Slight Target Cells Present Schistocytes Few Sodium Level 140 mmol/L (136-145) Potassium Level 4.7 mmol/L (3.5-5.1) Chloride Level 99 mmol/L (98-107) Carbon Dioxide Level 42 mmol/L (21-32) Anion Gap (6-14) Blood Urea Nitrogen 25 mg/dL (8-26) Creatinine 0.7 mg/dL (0.7-1.3) Estimated GFR (Cockcroft-Gault) 134.5 BUN/Creatinine Ratio 36 (6-20) Glucose Level 107 mg/dL (70-99) Calcium Level 9.2 mg/dL (8.5-10.1) Total Bilirubin 0.2 mg/dL (0.2-1.0) Aspartate Amino Transf (AST/SGOT) 41 U/L (15-37) Alanine Aminotransferase (ALT/SGPT) 78 U/L (16-63) Alkaline Phosphatase 82 U/L (46-116) Total Protein 6.9 g/dL (6.4-8.2) Albumin 1.6 g/dL (3.4-5.0) Albumin/Globulin Ratio 0.3 (1.0-1.7) Micro Klebsiella pneumoniae Greater than 100,000 colony forming units per mL Performed at: [facility] - [facility] [address] [place] [address], [place], [place] [id number] Flight Superintendent: DINO Rivera MD, Phone: [phone] Greater than 100,000 colony forming units per mL Cefazolin with an ART <=16 predicts susceptibility to the oral agents cefaclor, cefdinir, cefpodoxime, cefprozil, cefuroxime, cephalexin, and loracarbef when used for therapy of uncomplicated urinary tract infections due to E. coli, Klebsiella pneumoniae, and Proteus mirabilis. ANTIMICROBIAL SUSCEPTIBILITY Final Comment S = Susceptible; I = Intermediate; R = Resistant P = Positive; N = Negative MICS are expressed in micrograms per mL Antibiotic RSLT#1 RSLT#2 RSLT#3 RSLT#4 Amoxicillin/Clavulanic Acid S =8 Ampicillin R>=32 Cefazolin S Cefepime S<=0.12 Ceftriaxone S<=0.25 Cefuroxime S =2 Ciprofloxacin S<=0.25 Ertapenem S<=0.12 Gentamicin S<=1 Imipenem S<=0.25 Levofloxacin S<=0.12 Meropenem S<=0.25 Nitrofurantoin I =64 Piperacillin/Tazobactam I =32 Tetracycline R>=16 CONTINUED ON NEXT PAGE RUN DATE: 03/21/19 [facility] *LIVE* PAGE 2 RUN TIME: 1511 Specimen Inquiry ------- ----- SPEC: [id number] PATIENT: JOSE MOODY [id number] (Continued) Procedure Result ANTIMICROBIAL SUSCEPTIBILITY Final (continued) Tobramycin S<=1 Trimethoprim/Sulfa S<=20 Microbiology 03/18/19 Urine Culture - Final, Complete 03/18/19 Urine Culture Result 1 (ART) - Final, Complete 03/18/19 Antimicrobic Susceptibility - Final, Complete 03/18/19 Blood Culture - Preliminary, Resulted NO GROWTH AFTER 4 DAYS Objective Assessment Urinary tract infection, 03/18 with Klebsiella - h/o Zyvox/Zosyn Leukocytosis - improved. Acute hypercarbic respiratory failure. Suprapubic catheter in place,changed 03/18 Aspiration Metabolic alkalosis. Thrombocytosis, likely reactive. History of schizophrenia and depression. Altered mental status. CT head negative. group home resident. Pictures of sacral area reviewed and no deep infection Plan Plan of Care Now on Levaquin per primary since 03/22 was on Zosyn and appears to have been improving. - would treat through 03/28 local wound care Probiotics Supportive care ID to sign off - please call with questions CARTER WARNER MD Mar 23, 2019 09:17
[2019-03-23] MEDS: AA 4.25 %/CALCIUM/LYTES/D5W 1,000 ML IV SCH ×2 (09:53→15:30)
[2019-03-23] MEDS: PANTOPRAZOLE IV PUSH 40 MG VIAL. IVP SCH (09:54)
[2019-03-23] MEDS: ENOXAPARIN 40 MG/0.4 ML SYRINGE. SQ SCH (09:55)
--- NOTE | 2019-03-23 11:10 | RAD ---
Examination: VIDEO SWALLOW STUDY History: Evaluate swallowing Comparison/Correlation: None Findings: Video swallow was performed measuring 2.5 minutes of fluoroscopy. No images were acquired. Thin liquid, thick liquid, and paste forms of barium were utilized. Cracker coated form of barium was not administered as the patient refused. Oral pharyngeal motility is adequate. Aspiration with thin liquid barium via a cup is seen. No significant costophrenic reflux. Gross aspiration of a moderate size quantity of nectar thick liquid barium is identified with delayed cough reflex. Cough response is somewhat muted. No strong forceful cough is noted following aspiration. Moderate-sized vallecular residuals are present with multiple substances provided. These clearly after repeated dry swallows. Impression: Gross aspiration of nectar thick liquid. Smaller quantities aspirated along with liquid barium. Weak cough response. Vallecular residuals. Electronically signed by: Monty Rashid MD (03/23/2019 11:06 AM) [facility]
[2019-03-23 11:50] VITALS: BP 161/94
--- NOTE | 2019-03-23 12:55 | PDOC ---
PULMONARY PROGRESS NOTES Subjective on 02, has some sob, occ cough, is weak, on home 02 3lpm Vitals Vital Signs Date Time Temp Pulse Resp B/P (MAP) Pulse Ox O2 Delivery O2 Flow Rate FiO2 03/23/19 12:02 Nasal Cannula 4.0 03/23/19 11:50 97.9 78 18 161/94 (116) 98 97.9 General: Alert, No acute distress Lungs: Other (deminished bs) Cardiovascular: S1, S2 Abdomen: Soft, Non-tender Neuro Exam: Alert Extremities: Other (no chnage) Skin: Warm Labs Laboratory Tests Test 03/22/19 00:13 03/22/19 00:32 03/22/19 19:05 Glucose (Fingerstick) 90 mg/dL (70-99) O2 Saturation 87 % (92-99) Arterial Blood pH 7.26 (7.35-7.45) Arterial Blood pCO2 at Patient Temp 85 mmHg (35-46) Arterial Blood pO2 at Patient Temp 58 mmHg (65-108) Arterial Blood HCO3 37 mmol/L (21-28) Arterial Blood Base Excess 8 mmol/L (-3-3) FiO2 28 White Blood Count 4.4 x10^3/uL (4.0-11.0) Red Blood Count 3.67 x10^6/uL (4.30-5.70) Hemoglobin 8.4 g/dL (13.0-17.5) Hematocrit 27.7 % (39.0-53.0) Mean Corpuscular Volume 76 fL (79-100) Mean Corpuscular Hemoglobin 23 pg (25-35) Mean Corpuscular Hemoglobin Concent 30 g/dL (31-37) Red Cell Distribution Width 16.9 % (11.5-14.5) Platelet Count 495 x10^3/uL (140-400) Neutrophils (%) (Auto) 85 % (31-73) Lymphocytes (%) (Auto) 8 % (24-48) Monocytes (%) (Auto) 7 % (0-9) Eosinophils (%) (Auto) 0 % (0-3) Basophils (%) (Auto) 0 % (0-3) Neutrophils # (Auto) 3.7 x10^3/uL (1.8-7.7) Lymphocytes # (Auto) 0.3 x10^3/uL (1.0-4.8) Monocytes # (Auto) 0.3 x10^3/uL (0.0-1.1) Eosinophils # (Auto) 0.0 x10^3/uL (0.0-0.7) Basophils # (Auto) 0.0 x10^3/uL (0.0-0.2) Segmented Neutrophils % 91 % (35-66) Band Neutrophils % 1 % (0-9) Lymphocytes % 6 % (24-48) Monocytes % 2 % (0-10) Platelet Estimate Increased (ADEQUATE) Hypochromasia Slight Poikilocytosis Slight Anisocytosis Slight Microcytosis Slight Target Cells Present Schistocytes Few Sodium Level 140 mmol/L (136-145) Potassium Level 4.7 mmol/L (3.5-5.1) Chloride Level 99 mmol/L (98-107) Carbon Dioxide Level 42 mmol/L (21-32) Anion Gap (6-14) Blood Urea Nitrogen 25 mg/dL (8-26) Creatinine 0.7 mg/dL (0.7-1.3) Estimated GFR (Cockcroft-Gault) 134.5 BUN/Creatinine Ratio 36 (6-20) Glucose Level 107 mg/dL (70-99) Calcium Level 9.2 mg/dL (8.5-10.1) Total Bilirubin 0.2 mg/dL (0.2-1.0) Aspartate Amino Transf (AST/SGOT) 41 U/L (15-37) Alanine Aminotransferase (ALT/SGPT) 78 U/L (16-63) Alkaline Phosphatase 82 U/L (46-116) Total Protein 6.9 g/dL (6.4-8.2) Albumin 1.6 g/dL (3.4-5.0) Albumin/Globulin Ratio 0.3 (1.0-1.7) Laboratory Tests Test 03/22/19 19:05 White Blood Count 4.4 x10^3/uL (4.0-11.0) Red Blood Count 3.67 x10^6/uL (4.30-5.70) Hemoglobin 8.4 g/dL (13.0-17.5) Hematocrit 27.7 % (39.0-53.0) Mean Corpuscular Volume 76 fL (79-100) Mean Corpuscular Hemoglobin 23 pg (25-35) Mean Corpuscular Hemoglobin Concent 30 g/dL (31-37) Red Cell Distribution Width 16.9 % (11.5-14.5) Platelet Count 495 x10^3/uL (140-400) Neutrophils (%) (Auto) 85 % (31-73) Lymphocytes (%) (Auto) 8 % (24-48) Monocytes (%) (Auto) 7 % (0-9) Eosinophils (%) (Auto) 0 % (0-3) Basophils (%) (Auto) 0 % (0-3) Neutrophils # (Auto) 3.7 x10^3/uL (1.8-7.7) Lymphocytes # (Auto) 0.3 x10^3/uL (1.0-4.8) Monocytes # (Auto) 0.3 x10^3/uL (0.0-1.1) Eosinophils # (Auto) 0.0 x10^3/uL (0.0-0.7) Basophils # (Auto) 0.0 x10^3/uL (0.0-0.2) Segmented Neutrophils % 91 % (35-66) Band Neutrophils % 1 % (0-9) Lymphocytes % 6 % (24-48) Monocytes % 2 % (0-10) Platelet Estimate Increased (ADEQUATE) Hypochromasia Slight Poikilocytosis Slight Anisocytosis Slight Microcytosis Slight Target Cells Present Schistocytes Few Sodium Level 140 mmol/L (136-145) Potassium Level 4.7 mmol/L (3.5-5.1) Chloride Level 99 mmol/L (98-107) Carbon Dioxide Level 42 mmol/L (21-32) Anion Gap (6-14) Blood Urea Nitrogen 25 mg/dL (8-26) Creatinine 0.7 mg/dL (0.7-1.3) Estimated GFR (Cockcroft-Gault) 134.5 BUN/Creatinine Ratio 36 (6-20) Glucose Level 107 mg/dL (70-99) Calcium Level 9.2 mg/dL (8.5-10.1) Total Bilirubin 0.2 mg/dL (0.2-1.0) Aspartate Amino Transf (AST/SGOT) 41 U/L (15-37) Alanine Aminotransferase (ALT/SGPT) 78 U/L (16-63) Alkaline Phosphatase 82 U/L (46-116) Total Protein 6.9 g/dL (6.4-8.2) Albumin 1.6 g/dL (3.4-5.0) Albumin/Globulin Ratio 0.3 (1.0-1.7) Medications Active Scripts Medications Dose Route/Sig Max Daily Dose Days Date Category Dose Instructions Zinc Oxide 56.7 Gm Oint...g. 56.7 Gm TP DAILY 03/18/19 Reported Tussin (Guaifenesin) 100 Mg/5 Ml Liquid 5 Ml PO QID 10 03/18/19 Reported Flonase Allergy Relief (Fluticasone Propionate) 9.9 Ml [place].susp 2 Sprays NS DAILY 03/18/19 Reported Albuterol Sulfate Neb Soln (Albuterol Sulfate) 2.5 Mg/3 Ml Vial.neb 2.5 Mg NEB QID 12/05/18 Reported Geodon (Ziprasidone Hcl) 80 Mg Capsule 1 Cap PO BID 12/05/18 Reported Protonix (Pantoprazole Sodium) 20 Mg Tablet.dr 40 Mg PO DAILY 12/05/18 Reported Loxapine (Loxapine Succinate) 5 Mg Capsule 5 Mg PO PRN Q12HRS PRN 12/05/18 Reported Loxapine (Loxapine Succinate) 10 Mg Capsule 10 Mg PO HS 12/05/18 Reported GIVE 3 CAPSULE BY MOUTH AT BEDTIME FOR AGITATION Lisinopril 20 Mg Tablet 20 Mg PO DAILY 12/05/18 Reported HOLD FOR SBP < 110 Ferrous Sulfate 325 Mg Tablet 1 Tab PO DAILY 12/05/18 Reported Carvedilol 25 Mg Tablet 25 Mg PO BIDWMEALS 12/05/18 Reported hold for SBP < 110 and pulse < 40 Impression . IMPRESSION: 1. [id number] hypoxemic hypercapnic respiratory failure, multifactorial. 2. Chronic interstitial lung disease, chronic interstitial infiltrates on past chest x-ray. 3. Sepsis secondary to urinary tract infection. 4. Urinary tract infection. 5. Severe protein malnutrition, present upon admission. BMI of 18. 6. Status post left above-knee amputation. 7. 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 8. Leukocytosis. resolved 9. Acute metabolic toxic encephalopathy. 10. dysphagia, ASPIRATION Plan . 02 titration to keep sat 90%, is a [id number] avoid oversedation BD elevated hob abx per id REFUSES DOBBHOFF MAY NEED PEG HE WANTS TO EAT IT IS CERTAINLY OK FROM MY STANDPOINT TO PROVIDE PLEASURE FEEDING IN LIGHT OF ASPIRATION, when he is DNR, DNI OVERALL PROGNOSIS IS POOR discussed w pt ANDREW LANDERS MD Mar 23, 2019 12:55
[2019-03-23 13:58] LABS: BASE EXCESS ABG 15 mmol/L (-3-3); HCO3 ABG 42 mmol/L (21-28); PO2 ABG 95 mmHg (65-108); SAT O2 ABG 97 % (92-99)
[2019-03-23 14:00] LABS: PCO2 ABG 75 mmHg (35-46)
[2019-03-23 15:59] VITALS: BP 155/86
[2019-03-23 19:42] VITALS: BP 171/96
[2019-03-23] MEDS ORDERED: cloNIDine HCL 0.1 MG TABLET PO PRN (22:45)
--- NOTE | 2019-03-23 22:56 | NUR ---
Pt refused CHG bath.
[2019-03-23 23:24] VITALS: BP 167/96
[2019-03-24 03:05] VITALS: BP 170/95
[2019-03-24] MEDS: IPRATRPIUM/ALBUTEROL 0.5/2.5MG 3 ML NEBU. NEB SCH ×4 (03:20→16:19)
[2019-03-24] MEDS: AA 4.25 %/CALCIUM/LYTES/D5W 1,000 ML IV SCH ×2 (04:00→16:30)
[2019-03-24] MEDS: PANTOPRAZOLE IV PUSH 40 MG VIAL. IVP SCH (07:30)
[2019-03-24] MEDS: BUDESONIDE 0.5 MG/2 ML NEBU. NEB SCH (07:35)
[2019-03-24 07:49] VITALS: BP 157/94
--- NOTE | 2019-03-24 09:06 | PDOC ---
PULMONARY PROGRESS NOTES Subjective on 02, has some sob, occ cough, is weak, on home 02 3lpm Vitals Vital Signs Date Time Temp Pulse Resp B/P (MAP) Pulse Ox O2 Delivery O2 Flow Rate FiO2 03/24/19 07:49 98.0 86 18 157/94 (115) 99 Nasal Cannula 4.0 98.0 General: Alert, No acute distress Lungs: Other (deminished bs) Cardiovascular: S1, S2 Abdomen: Soft, Non-tender Neuro Exam: Alert Extremities: Other (no chnage) Skin: Warm Labs Laboratory Tests Test 03/22/19 19:05 03/23/19 13:40 White Blood Count 4.4 x10^3/uL (4.0-11.0) Red Blood Count 3.67 x10^6/uL (4.30-5.70) Hemoglobin 8.4 g/dL (13.0-17.5) Hematocrit 27.7 % (39.0-53.0) Mean Corpuscular Volume 76 fL (79-100) Mean Corpuscular Hemoglobin 23 pg (25-35) Mean Corpuscular Hemoglobin Concent 30 g/dL (31-37) Red Cell Distribution Width 16.9 % (11.5-14.5) Platelet Count 495 x10^3/uL (140-400) Neutrophils (%) (Auto) 85 % (31-73) Lymphocytes (%) (Auto) 8 % (24-48) Monocytes (%) (Auto) 7 % (0-9) Eosinophils (%) (Auto) 0 % (0-3) Basophils (%) (Auto) 0 % (0-3) Neutrophils # (Auto) 3.7 x10^3/uL (1.8-7.7) Lymphocytes # (Auto) 0.3 x10^3/uL (1.0-4.8) Monocytes # (Auto) 0.3 x10^3/uL (0.0-1.1) Eosinophils # (Auto) 0.0 x10^3/uL (0.0-0.7) Basophils # (Auto) 0.0 x10^3/uL (0.0-0.2) Segmented Neutrophils % 91 % (35-66) Band Neutrophils % 1 % (0-9) Lymphocytes % 6 % (24-48) Monocytes % 2 % (0-10) Platelet Estimate Increased (ADEQUATE) Hypochromasia Slight Poikilocytosis Slight Anisocytosis Slight Microcytosis Slight Target Cells Present Schistocytes Few Sodium Level 140 mmol/L (136-145) Potassium Level 4.7 mmol/L (3.5-5.1) Chloride Level 99 mmol/L (98-107) Carbon Dioxide Level 42 mmol/L (21-32) Anion Gap (6-14) Blood Urea Nitrogen 25 mg/dL (8-26) Creatinine 0.7 mg/dL (0.7-1.3) Estimated GFR (Cockcroft-Gault) 134.5 BUN/Creatinine Ratio 36 (6-20) Glucose Level 107 mg/dL (70-99) Calcium Level 9.2 mg/dL (8.5-10.1) Total Bilirubin 0.2 mg/dL (0.2-1.0) Aspartate Amino Transf (AST/SGOT) 41 U/L (15-37) Alanine Aminotransferase (ALT/SGPT) 78 U/L (16-63) Alkaline Phosphatase 82 U/L (46-116) Total Protein 6.9 g/dL (6.4-8.2) Albumin 1.6 g/dL (3.4-5.0) Albumin/Globulin Ratio 0.3 (1.0-1.7) O2 Saturation 97 % (92-99) Arterial Blood pH 7.37 (7.35-7.45) Arterial Blood pCO2 at Patient Temp 75 mmHg (35-46) Arterial Blood pO2 at Patient Temp 95 mmHg (65-108) Arterial Blood HCO3 42 mmol/L (21-28) Arterial Blood Base Excess 15 mmol/L (-3-3) FiO2 4 lpm nc Laboratory Tests Test 03/23/19 13:40 O2 Saturation 97 % (92-99) Arterial Blood pH 7.37 (7.35-7.45) Arterial Blood pCO2 at Patient Temp 75 mmHg (35-46) Arterial Blood pO2 at Patient Temp 95 mmHg (65-108) Arterial Blood HCO3 42 mmol/L (21-28) Arterial Blood Base Excess 15 mmol/L (-3-3) FiO2 4 lpm nc Medications Active Scripts Medications Dose Route/Sig Max Daily Dose Days Date Category Dose Instructions Zinc Oxide 56.7 Gm Oint...g. 56.7 Gm TP DAILY 03/18/19 Reported Tussin (Guaifenesin) 100 Mg/5 Ml Liquid 5 Ml PO QID 10 03/18/19 Reported Flonase Allergy Relief (Fluticasone Propionate) 9.9 Ml [place].susp 2 Sprays NS DAILY 03/18/19 Reported Albuterol Sulfate Neb Soln (Albuterol Sulfate) 2.5 Mg/3 Ml Vial.neb 2.5 Mg NEB QID 12/05/18 Reported Geodon (Ziprasidone Hcl) 80 Mg Capsule 1 Cap PO BID 12/05/18 Reported Protonix (Pantoprazole Sodium) 20 Mg Tablet.dr 40 Mg PO DAILY 12/05/18 Reported Loxapine (Loxapine Succinate) 5 Mg Capsule 5 Mg PO PRN Q12HRS PRN 12/05/18 Reported Loxapine (Loxapine Succinate) 10 Mg Capsule 10 Mg PO HS 12/05/18 Reported GIVE 3 CAPSULE BY MOUTH AT BEDTIME FOR AGITATION Lisinopril 20 Mg Tablet 20 Mg PO DAILY 12/05/18 Reported HOLD FOR SBP < 110 Ferrous Sulfate 325 Mg Tablet 1 Tab PO DAILY 12/05/18 Reported Carvedilol 25 Mg Tablet 25 Mg PO BIDWMEALS 12/05/18 Reported hold for SBP < 110 and pulse < 40 Impression . IMPRESSION: 1. Vedqr-py-rueirok hypoxemic hypercapnic respiratory failure, multifactorial. 2. Chronic interstitial lung disease, chronic interstitial infiltrates on past chest x-ray. 3. Sepsis secondary to urinary tract infection. 4. Urinary tract infection. 5. Severe protein malnutrition, present upon admission. BMI of 18. 6. Status post left above-knee amputation. 7. 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 8. Leukocytosis. resolved 9. Acute metabolic toxic encephalopathy. 10. dysphagia, ASPIRATION risk, but patient wants to eat Plan . 02 titration to keep sat 90%, is a [id number] avoid oversedation BD elevated hob abx per id REFUSES DOBBHOFF HE WANTS TO EAT IT IS CERTAINLY OK FROM MY STANDPOINT TO PROVIDE PLEASURE FEEDING IN LIGHT OF ASPIRATION, he is DNR, DNI OVERALL PROGNOSIS IS POOR discussed w pt and DR Casarez ok with PP transfer ANDREW LANDERS MD Mar 24, 2019 09:06
[2019-03-24] MEDS: LACTOBACILLUS RHAMNOSUS GG 1 CAPSULE. PO SCH (09:09)
[2019-03-24] MEDS: ENOXAPARIN 40 MG/0.4 ML SYRINGE. SQ SCH (09:09)
--- NOTE | 2019-03-24 10:00 | NUR ---
Spoke with Dr. Casarez regarding pt not having IV access, ok to leave out IV.
[2019-03-24 11:44] VITALS: BP 165/88
[2019-03-24] MEDS ORDERED: LACT1CAP19 PO (12:18)
[2019-03-24] MEDS ORDERED: LEVO500T59 PO (12:18)
--- NOTE | 2019-03-24 12:20 | SNU/HH DC ---
DISCHARGE ORDERS DISCHARGE INFORMATION: DISCHARGE DATE: Mar 24, 2019 FINAL DIAGNOSIS Problems Medical Problems: (1) Acute hypercapnic respiratory failure Status: Acute (2) Altered mental status Status: Acute (3) Generalized weakness Status: Acute (4) Leg wound, right Status: Acute CONDITION ON DISCHARGE: Stable CODE STATUS: Code Status: DNR/DNI HOSPICE: HOSPICE EVAL & TREAT: Yes (Referral per daughter) POST DISCHARGE ORDERS: ACTIVITY ORDERS: Resume previous activity WEIGHT BEARING STATUS: As tolerated DIET AFTER DISCHARGE: Dysphagia I, pureed. Minimal nectar thickened liquids. As pirates WOUND/INCISION CARE: Change dressing CHECKS AFTER DISCHARGE: CHECKS AFTER DISCHARGE: Check blood press - daily TREATMENT/EQUIPMENT ORDERS: ADAPTIVE EQUIPMENT NEEDED: Wheelchair RESPIRATORY EQUIPMENT NEEDED: Oxygen DISCHARGE MEDICATIONS: Home Meds Active Scripts Levofloxacin (LEVAQUIN) 500 Mg Tablet, 1 TAB PO DAILY for Pneumonia for 5 Days, #5 TAB 0 Refills Prov:SHAWNEE BLANCHARD MD 03/24/19 Lactobacillus Rhamnosus Gg (CULTURELLE) 1 Each Cap.sprink, 1 CAP PO BID for Diarrhea for 7 Days, #14 CAP Prov:SHAWNEE BLANCHARD MD 03/24/19 Reported Medications Zinc Oxide (ZINC OXIDE) 56.7 Gm Oint...g., 56.7 GM TP DAILY for COCCYX, MISC 03/18/19 Guaifenesin (TUSSIN) 100 Mg/5 Ml Liquid, 5 ML PO QID for cough for 10 Days, #200 ML 0 Refills 03/18/19 Fluticasone Propionate (Flonase Allergy Relief) 9.9 Ml [place].susp, 2 SPRAYS NS DAILY for CONGESTION, BOTTLE 03/18/19 Albuterol Sulfate (ALBUTEROL SULFATE NEB SOLN) 2.5 Mg/3 Ml Vial.neb, 2.5 MG NEB QID for SHORT OF AIR, EACH 0 Refills 12/05/18 Ziprasidone Hcl (GEODON) 80 Mg Capsule, 1 CAP PO BID for SCHIZOPHRENIA, #60 CAP 1 Refill 12/05/18 Pantoprazole Sodium (PROTONIX) 20 Mg Tablet.dr, 40 MG PO DAILY for GERD, TAB 12/05/18 Loxapine Succinate (LOXAPINE) 5 Mg Capsule, 5 MG PO PRN Q12HRS PRN for AGITATION, CAP 12/05/18 Loxapine Succinate (LOXAPINE) 10 Mg Capsule, 10 MG PO HS for AGITATION, CAP GIVE 3 CAPSULE BY MOUTH AT BEDTIME FOR AGITATION 12/05/18 Lisinopril (LISINOPRIL) 20 Mg Tablet, 20 MG PO DAILY for FOR HYPERTENSION, #30 TAB 0 Refills HOLD FOR SBP < 110 12/05/18 Carvedilol (CARVEDILOL) 25 Mg Tablet, 25 MG PO BIDWMEALS for CARDIAC, TAB hold for SBP < 110 and pulse < 40 12/05/18 Discontinued Reported Medications Ferrous Sulfate (FERROUS SULFATE) 325 Mg Tablet, 1 TAB PO DAILY for ANEMIA, #30 TAB 3 Refills 12/05/18 SHAWNEE BLANCHARD MD Mar 24, 2019 12:20
--- NOTE | 2019-03-24 12:26 | PDOC ---
PROGRESS NOTES Chief Complaint Chief Complaint Acute hypercarbic respiratory failure. RESOLVED (transferred out of icu 03/20/19) UTI, complicated - klebsiella 03/18/2019 - cont levaquin through 03/28/2019 Chronic hypoxic respiratory failure - on 2-3L NCO2 continuously, will continue Supra pubic catheter indwelling, recently changed 03/18/2019 Sepsis Acute metabolic encephalopathy and toxic encephalopathy Emaciation Severe protein calorie malnutrition Bed bound status, functional quadriplegia Dysphagia - does silently aspirate some thickened liquids. D/w patient and daughter they do not want referral for PEG, they wish for comfort feeding and would like hospice referral on discharge Metabolic alkalosis Thrombocytosis, likely reactive. History of schizophrenia and depression - cont [facility] resident. History of Present Illness History of Present Illness Mr Valentine is a 73 yo M w/ PMHx schizophrenia, depression, urinary retention with suprapubic catheter, functional quadiplegia from shelter [facility]term was brought to the ER with altered mental status. The patient was hypoxic, hypercarbic, requiring nonrebreather. White count was elevated at 14. UA showed pyuria. The patient was afebrile. He got a dose of Zosyn. Blood cultures were done. Urine cultures were done. Head CT, no acute changes. Chest x-ray unremarkable. The patient was admitted to ICU. ID consulted as well as cardiology Found with a leg wound for which he was seen in 01/2019 in the ER, coccyx wounds, and klebsiella UTI. Had catheter changed. Transferred out of ICU 03/22/2019.. Stage 4 decub -[facility] resident - Consulted ID, Wound care, and Pulmonology 03/23: He is upset about NPO status. I have discussed feeding tube with him and his daughter. He tells me he can use the suprapubic catheter as a "horse identifier". He is insistent he eat despite gross aspiration of nectar thickened liquids. No CP or SOB. After discussion with his daughter they wish for DNR and would like a re ferral to palliative care/hospice soon. No CP or SOB. He is feeling improved today, wishes for me to help him sit up. He is asking for discharge. We have discussed that he will likely continue to aspirate, he insists he be allowed to eat, and I feel this wish should be accommodated within reason with dysphagia I pureed diet with minimal nectar thickened liquids available with supervised eating/drinking. Hospice referral had been previously suggested at the [facility] and he and his daughter would like to look into this after discharge to his shelter group home facility. 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 Aspiration was only with larger amounts of thickened liquids Turn q2 SNU on dc DNR/DNI per patient and daughter Sherif Vitals Vitals Vital Signs Date Time Temp Pulse Resp B/P (MAP) Pulse Ox O2 Delivery O2 Flow Rate FiO2 03/24/19 11:44 98.2 84 18 165/88 (113) 99 Nasal Cannula 4.0 98.2 Physical Exam Physical Exam GENERAL: Propped up in bed, alert in NAD appears comfortable HEENT: Oral cavity dry - poor dentition, speech is soft NECK: Supple. LUNGS: Decreased breath sounds at bases. no wheezing HEART: S1, S2, no murmurs. ABDOMEN: Soft.NT : Suprapubic catheter in place, (03/18) EXTREMITIES: Left BKA stump looks good. Right lower extremity lymphedema, hyperkeratotic skin, superficial abrasion over the leg, not infected. Right second toe amputation site looks okay. Dry scaly skin. CENTRAL NERVOUS SYSTEM: alert awake, coop DERMATOLOGIC: No generalized rash except for above. PIV General: Alert, Cooperative, No acute distress, Other (somnolent ) Heart: Regular rate, Normal S1, Normal S2, Other (distant heart tones ) Lungs: Other (deminished bs) Abdomen: Soft Extremities: No clubbing, No cyanosis, Other (1+ right LE edema with chronic venous stasis changes. left AKA) Skin: Other (RLE scaly ) Labs LABS Laboratory Tests Test 03/23/19 13:40 O2 Saturation 97 % (92-99) Arterial Blood pH 7.37 (7.35-7.45) Arterial Blood pCO2 at Patient Temp 75 mmHg (35-46) Arterial Blood pO2 at Patient Temp 95 mmHg (65-108) Arterial Blood HCO3 42 mmol/L (21-28) Arterial Blood Base Excess 15 mmol/L (-3-3) FiO2 4 lpm nc Assessment and Plan Assessmemt and Plan Problems Medical Problems: (1) Acute hypercapnic respiratory failure Status: Acute (2) Altered mental status Status: Acute (3) Generalized weakness Status: Acute (4) Leg wound, right Status: Acute Comment Review of Relevant I have reviewed the following items nir (where applicable) has been applied. Labs Laboratory Tests Test 03/22/19 19:05 03/23/19 13:40 White Blood Count 4.4 x10^3/uL (4.0-11.0) Red Blood Count 3.67 x10^6/uL (4.30-5.70) Hemoglobin 8.4 g/dL (13.0-17.5) Hematocrit 27.7 % (39.0-53.0) Mean Corpuscular Volume 76 fL (79-100) Mean Corpuscular Hemoglobin 23 pg (25-35) Mean Corpuscular Hemoglobin Concent 30 g/dL (31-37) Red Cell Distribution Width 16.9 % (11.5-14.5) Platelet Count 495 x10^3/uL (140-400) Neutrophils (%) (Auto) 85 % (31-73) Lymphocytes (%) (Auto) 8 % (24-48) Monocytes (%) (Auto) 7 % (0-9) Eosinophils (%) (Auto) 0 % (0-3) Basophils (%) (Auto) 0 % (0-3) Neutrophils # (Auto) 3.7 x10^3/uL (1.8-7.7) Lymphocytes # (Auto) 0.3 x10^3/uL (1.0-4.8) Monocytes # (Auto) 0.3 x10^3/uL (0.0-1.1) Eosinophils # (Auto) 0.0 x10^3/uL (0.0-0.7) Basophils # (Auto) 0.0 x10^3/uL (0.0-0.2) Segmented Neutrophils % 91 % (35-66) Band Neutrophils % 1 % (0-9) Lymphocytes % 6 % (24-48) Monocytes % 2 % (0-10) Platelet Estimate Increased (ADEQUATE) Hypochromasia Slight Poikilocytosis Slight Anisocytosis Slight Microcytosis Slight Target Cells Present Schistocytes Few Sodium Level 140 mmol/L (136-145) Potassium Level 4.7 mmol/L (3.5-5.1) Chloride Level 99 mmol/L (98-107) Carbon Dioxide Level 42 mmol/L (21-32) Anion Gap (6-14) Blood Urea Nitrogen 25 mg/dL (8-26) Creatinine 0.7 mg/dL (0.7-1.3) Estimated GFR (Cockcroft-Gault) 134.5 BUN/Creatinine Ratio 36 (6-20) Glucose Level 107 mg/dL (70-99) Calcium Level 9.2 mg/dL (8.5-10.1) Total Bilirubin 0.2 mg/dL (0.2-1.0) Aspartate Amino Transf (AST/SGOT) 41 U/L (15-37) Alanine Aminotransferase (ALT/SGPT) 78 U/L (16-63) Alkaline Phosphatase 82 U/L (46-116) Total Protein 6.9 g/dL (6.4-8.2) Albumin 1.6 g/dL (3.4-5.0) Albumin/Globulin Ratio 0.3 (1.0-1.7) O2 Saturation 97 % (92-99) Arterial Blood pH 7.37 (7.35-7.45) Arterial Blood pCO2 at Patient Temp 75 mmHg (35-46) Arterial Blood pO2 at Patient Temp 95 mmHg (65-108) Arterial Blood HCO3 42 mmol/L (21-28) Arterial Blood Base Excess 15 mmol/L (-3-3) FiO2 4 lpm nc Laboratory Tests Test 03/23/19 13:40 O2 Saturation 97 % (92-99) Arterial Blood pH 7.37 (7.35-7.45) Arterial Blood pCO2 at Patient Temp 75 mmHg (35-46) Arterial Blood pO2 at Patient Temp 95 mmHg (65-108) Arterial Blood HCO3 42 mmol/L (21-28) Arterial Blood Base Excess 15 mmol/L (-3-3) FiO2 4 lpm nc Microbiology 03/18/19 Urine Culture - Final, Complete 03/18/19 Urine Culture Result 1 (ART) - Final, Complete 03/18/19 Antimicrobic Susceptibility - Final, Complete 03/18/19 Blood Culture - Final, Complete NO GROWTH AFTER 5 DAYS Medications Current Medications Piperacillin Sod/ Tazobactam Sod 3.375 gm/Sodium Chloride 50 ml @ 100 mls/hr 1X ONCE IV Last administered on 03/18/19at 08:01; Start 03/18/19 at 07:30; Stop 03/18/19 at 07:59; Status DC Sodium Chloride 500 ml @ 500 mls/hr 1X ONCE IV Last administered on 03/18/19at 09:28; Start 03/18/19 at 09:00; Stop 03/18/19 at 09:59; Status DC Lorazepam (Ativan Inj) 1 mg PRN Q4HRS PRN IVP ANXIETY / AGITATION Last administered on 03/21/19at 20:52; Start 03/18/19 at 11:30 Sodium Chloride 1,000 ml @ 80 mls/hr [id number] IV Last administered on 03/18/19at 23:20; Start 03/18/19 at 11:45; Stop 03/19/19 at 11:09; Status DC Piperacillin Sod/ Tazobactam Sod 3.375 gm/Sodium Chloride 50 ml @ 100 mls/hr Q6HRS IV Last administered on 03/22/19at 05:17; Start 03/18/19 at 14:00; Stop 03/22/19 at 08:55; Status DC Linezolid/Dextrose 300 ml @ 300 mls/hr Q12HR IV Last administered on 03/20/19at 09:37; Start 03/18/19 at 15:00; Stop 03/20/19 at 10:06; Status DC Albuterol/ Ipratropium (Duoneb) 3 ml RTQID NEB Last administered on 03/22/19at 07:24; Start 03/19/19 at 12:00; Stop 03/22/19 at 09:54; Status DC Amino Acids/ Electrolytes/ Dextrose 1,000 ml @ 80 mls/hr [id number] IV Last administered on 03/23/19at 09:53; Start 03/19/19 at 11:30 Hydralazine HCl (Apresoline Inj) 10 mg PRN Q4HRS PRN IVP ELEVATED BP, 1ST CHOICE Last administered on 03/20/19at 14:45; Start 03/19/19 at 11:45 Lactobacillus Rhamnosus (Culturelle) 1 cap BID PO Last administered on 03/24/19at 09:09; Start 03/19/19 at 15:00 Pantoprazole Sodium (PROTONIX VIAL for IV PUSH) 40 mg DAILYAC IVP Last administered on 03/23/19at 09:54; Start 03/22/19 at 07:30 Pantoprazole Sodium (PROTONIX VIAL for IV PUSH) 40 mg 1X ONCE IVP Last administered on 03/21/19at 10:52; Start 03/21/19 at 08:45; Stop 03/21/19 at 08:46; Status DC Enoxaparin Sodium (Lovenox 40mg Syringe) 40 mg Q24H SQ Last administered on 03/24/19at 09:09; Start 03/21/19 at 09:00 Labetalol HCl (Normodyne Iv Push) 10 mg PRN Q2HR PRN IVP HYPERTENSION, 2ND CHOICE; Start 03/21/19 at 08:45 Morphine Sulfate (Morphine Sulfate) 2 mg PRN Q2HR PRN IV MODERATE TO SEVERE PAIN Last administered on 03/21/19at 19:00; Start 03/21/19 at 08:45 Methylprednisolone Sodium Succinate (SOLU-Medrol 125MG VIAL) 125 mg 1X ONCE IV Last administered on 03/22/19at 01:25; Start 03/22/19 at 01:00; Stop 03/22/19 at 01:02; Status DC Labetalol HCl (Normodyne Iv Push) 10 mg 1X ONCE IVP Last administered on 03/22/19at 09:27; Start 03/22/19 at 09:00; Stop 03/22/19 at 09:01; Status DC Levofloxacin/ Dextrose (Levaquin Per Pharmacy) 1 each PRN DAILY PRN MC SEE COMMENTS; Start 03/22/19 at 09:00 Levofloxacin/ Dextrose 50 ml @ 50 mls/hr Q24H IV Last administered on 03/23/19at 09:54; Start 03/22/19 at 10:00 Albuterol/ Ipratropium (Duoneb) 3 ml Q4HRS NEB Last administered on 03/24/19at 11:31; Start 03/22/19 at 12:00 Budesonide (Pulmicort) 0.5 mg RTBID NEB Last administered on 03/24/19at 07:35; Start 03/22/19 at 20:00 Budesonide (Pulmicort) 0.5 mg 1X ONCE NEB Last administered on 03/22/19at 10:00; Start 03/22/19 at 10:00; Stop 03/22/19 at 10:01; Status DC Barium Sulfate (Varibar Thin Liquid Apple) 148 gm 1X ONCE PO Last administered on 03/23/19at 08:30; Start 03/23/19 at 08:30; Stop 03/23/19 at 08:31; Status DC Clonidine HCl (Catapres) 0.1 mg PRN Q6HRS PRN PO HYPERTENSION; Start 03/23/19 at 22:45 Active Scripts Active Levaquin (Levofloxacin) 500 Mg Tablet 1 Tab PO DAILY 5 Days Culturelle (Lactobacillus Rhamnosus Gg) 1 Each Cap.sprink 1 Cap PO BID 7 Days Reported Zinc Oxide 56.7 Gm Oint...g. 56.7 Gm TP DAILY Tussin (Guaifenesin) 100 Mg/5 Ml Liquid 5 Ml PO QID 10 Days Flonase Allergy Relief (Fluticasone Propionate) 9.9 Ml [place].susp 2 Sprays NS DAILY Albuterol Sulfate Neb Soln (Albuterol Sulfate) 2.5 Mg/3 Ml Vial.neb 2.5 Mg NEB QID Geodon (Ziprasidone Hcl) 80 Mg Capsule 1 Cap PO BID Protonix (Pantoprazole Sodium) 20 Mg Tablet.dr 40 Mg PO DAILY Loxapine (Loxapine Succinate) 5 Mg Capsule 5 Mg PO PRN Q12HRS PRN Loxapine (Loxapine Succinate) 10 Mg Capsule 10 Mg PO HS GIVE 3 CAPSULE BY MOUTH AT BEDTIME FOR AGITATION Lisinopril 20 Mg Tablet 20 Mg PO DAILY HOLD FOR SBP < 110 Carvedilol 25 Mg Tablet 25 Mg PO BIDWMEALS hold for SBP < 110 and pulse < 40 Vitals/I & O Vital Sign - Last 24 Hours 03/23/19 03/23/19 03/23/19 03/23/19 15:58 15:59 19:42 20:00 Temp 98.3 98.4 98.3 98.4 Pulse 76 82 Resp 20 18 B/P (MAP) 155/86 (109) 171/96 (121) Pulse Ox 97 98 95 O2 Delivery Nasal Cannula Nasal Cannula Nasal Cannula Nasal Cannula O2 Flow Rate 4.0 4.0 4.0 4.0 03/23/19 03/23/19 03/23/19 03/23/19 20:37 20:38 23:24 23:59 Temp 98.0 98.0 Pulse 88 Resp 20 B/P (MAP) 167/96 (119) Pulse Ox 100 O2 Delivery Nasal Cannula Nasal Cannula Nasal Cannula Nasal Cannula O2 Flow Rate 4.0 4.0 4.0 4.0 03/24/19 03/24/19 03/24/19 03/24/19 03:05 07:38 07:49 08:00 Temp 98.1 98.0 98.1 98.0 Pulse 82 86 Resp 20 18 B/P (MAP) 170/95 (120) 157/94 (115) Pulse Ox 97 99 O2 Delivery Nasal Cannula Nasal Cannula Nasal Cannula O2 Flow Rate 4.0 4.0 4.0 4.0 03/24/19 03/24/19 03/24/19 08:00 11:34 11:44 Temp 98.2 98.2 Pulse 84 Resp 18 B/P (MAP) 165/88 (113) Pulse Ox 99 O2 Delivery Nasal Cannula Nasal Cannula Nasal Cannula O2 Flow Rate 4.0 4.0 4.0 Intake and Output 03/23/19 03/23/19 03/24/19 15:00 23:00 07:00 Intake Total 120 ml 100 ml Output Total 800 ml Balance 120 ml -700 ml Nutrition Consultation Dietary Evaluation: Recommendations by RD: Dietary education by RD, PPN/TPN Comments: Continue w/PPN at this time for short-term non-oral nutrition needs, pt is refusing dobhoff placement at this time Expected Outcomes/Goals: PO intake to meet >75% est needs - not met, new goal established New goal 03/20: Nutrition support to meet >75% est needs while pt remains NPO Interpretation of weight loss: >7.5% in 3 months Malnutrition Findings: Weight Status: Underweight SHAWNEE BLANCHARD MD Mar 24, 2019 12:26
--- NOTE | 2019-03-24 12:28 | PDOC3 ---
Discharge Summary Visit Information Date of Admission: Mar 18, 2019 Date of Discharge: Mar 24, 2019 Admitting Diagnosis: Catheter associated UTI, Acute hypoxic and hypercapnic Final Diagnosis Problems Medical Problems: (1) Acute hypercapnic respiratory failure Status: Acute (2) Altered mental status Status: Acute (3) Generalized weakness Status: Acute (4) Leg wound, right Status: Acute Brief Hospital Course Allergies Allergies Coded Allergies Type Severity Reaction Last Updated Verified chlorpromazine Allergy Intermediate 12/05/18 Yes haloperidol Allergy Intermediate 12/05/18 Yes trazodone Allergy Intermediate 12/05/18 Yes Vital Signs Vital Signs Date Time Temp Pulse Resp B/P (MAP) Pulse Ox O2 Delivery O2 Flow Rate FiO2 03/24/19 11:44 98.2 84 18 165/88 (113) 99 Nasal Cannula 4.0 98.2 Lab Results Laboratory Tests Test 03/22/19 19:05 03/23/19 13:40 White Blood Count 4.4 x10^3/uL (4.0-11.0) Red Blood Count 3.67 x10^6/uL (4.30-5.70) Hemoglobin 8.4 g/dL (13.0-17.5) Hematocrit 27.7 % (39.0-53.0) Mean Corpuscular Volume 76 fL (79-100) Mean Corpuscular Hemoglobin 23 pg (25-35) Mean Corpuscular Hemoglobin Concent 30 g/dL (31-37) Red Cell Distribution Width 16.9 % (11.5-14.5) Platelet Count 495 x10^3/uL (140-400) Neutrophils (%) (Auto) 85 % (31-73) Lymphocytes (%) (Auto) 8 % (24-48) Monocytes (%) (Auto) 7 % (0-9) Eosinophils (%) (Auto) 0 % (0-3) Basophils (%) (Auto) 0 % (0-3) Neutrophils # (Auto) 3.7 x10^3/uL (1.8-7.7) Lymphocytes # (Auto) 0.3 x10^3/uL (1.0-4.8) Monocytes # (Auto) 0.3 x10^3/uL (0.0-1.1) Eosinophils # (Auto) 0.0 x10^3/uL (0.0-0.7) Basophils # (Auto) 0.0 x10^3/uL (0.0-0.2) Segmented Neutrophils % 91 % (35-66) Band Neutrophils % 1 % (0-9) Lymphocytes % 6 % (24-48) Monocytes % 2 % (0-10) Platelet Estimate Increased (ADEQUATE) Hypochromasia Slight Poikilocytosis Slight Anisocytosis Slight Microcytosis Slight Target Cells Present Schistocytes Few Sodium Level 140 mmol/L (136-145) Potassium Level 4.7 mmol/L (3.5-5.1) Chloride Level 99 mmol/L (98-107) Carbon Dioxide Level 42 mmol/L (21-32) Anion Gap (6-14) Blood Urea Nitrogen 25 mg/dL (8-26) Creatinine 0.7 mg/dL (0.7-1.3) Estimated GFR (Cockcroft-Gault) 134.5 BUN/Creatinine Ratio 36 (6-20) Glucose Level 107 mg/dL (70-99) Calcium Level 9.2 mg/dL (8.5-10.1) Total Bilirubin 0.2 mg/dL (0.2-1.0) Aspartate Amino Transf (AST/SGOT) 41 U/L (15-37) Alanine Aminotransferase (ALT/SGPT) 78 U/L (16-63) Alkaline Phosphatase 82 U/L (46-116) Total Protein 6.9 g/dL (6.4-8.2) Albumin 1.6 g/dL (3.4-5.0) Albumin/Globulin Ratio 0.3 (1.0-1.7) O2 Saturation 97 % (92-99) Arterial Blood pH 7.37 (7.35-7.45) Arterial Blood pCO2 at Patient Temp 75 mmHg (35-46) Arterial Blood pO2 at Patient Temp 95 mmHg (65-108) Arterial Blood HCO3 42 mmol/L (21-28) Arterial Blood Base Excess 15 mmol/L (-3-3) FiO2 4 lpm ri Laboratory Tests Test 03/23/19 13:40 O2 Saturation 97 % (92-99) Arterial Blood pH 7.37 (7.35-7.45) Arterial Blood pCO2 at Patient Temp 75 mmHg (35-46) Arterial Blood pO2 at Patient Temp 95 mmHg (65-108) Arterial Blood HCO3 42 mmol/L (21-28) Arterial Blood Base Excess 15 mmol/L (-3-3) FiO2 4 lpm nc Brief Hospital Course Mr Valentine is a 73 yo M w/ PMHx schizophrenia, depression, urinary retention with suprapubic catheter, functional quadiplegia from [facility] [place] [facility] was brought to the ER with altered mental status. The patient was hypoxic, hypercarbic, requiring nonrebreather. White count was elevated at 14. UA showed pyuria. The patient was afebrile. He got a dose of Zosyn. Blood cultures were done. Urine cultures were done. Head CT, no acute changes. Chest x-ray unremarkable. The patient was admitted to ICU. ID consulted as well as cardiology Found with a leg wound for which he was seen in 01/2019 in the ER, coccyx wounds, and klebsiella UTI. Had catheter changed. Transferred out of ICU 03/22/2019.. Stage 4 decub -[facility] resident - Consulted ID, Wound care, and Pulmonology 03/23: He is upset about NPO status. I have discussed feeding tube with him and his daughter. 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 He is insistent he eat despite gross aspiration of nectar thickened liquids. No CP or SOB. After discussion with his daughter they wish for DNR and would like a referral to palliative care/hospice soon. No CP or SOB. He is feeling improved today, wishes for me to help him sit up. He is asking for discharge. We have discussed that he will likely continue to aspirate, he insists he be allowed to eat, and I feel this wish should be accommodated within reason with dysphagia I pureed diet with minimal nectar thickened liquids available with supervised eating/drinking. 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 Problem list: Acute hypercarbic respiratory failure. RESOLVED (transferred out of icu 03/20/19) UTI, complicated - klebsiella 03/18/2019 - cont levaquin through 03/28/2019 Chronic hypoxic respiratory failure - on 2-3L NCO2 continuously, will continue Supra pubic catheter indwelling, recently changed 03/18/2019 Sepsis Acute metabolic encephalopathy and toxic encephalopathy Emaciation Severe protein calorie malnutrition Bed bound status, functional quadriplegia Dysphagia - does silently aspirate some thickened liquids. D/w patient and daughter they do not want referral for PEG, they wish for comfort feeding and would like hospice referral on discharge Metabolic alkalosis Thrombocytosis, likely reactive. History of schizophrenia and depression - cont meds [facility] resident. PLAN; UI DEVELOPER WITH [employer] eval intermittently Comfort feeding, good oral care. Aspiration was only with larger amounts of thickened liquids Turn q2 SNU on dc DNR/DNI per patient and daughter Sherif Greater than 30 minutes spent on d/c Discharge Information Condition at Discharge: Stable Follow Up: Weeks (1) Disposition/Orders: D/C to Another Facility ([facility]) Scheduled Albuterol Sulfate (Albuterol Sulfate Neb Soln) 2.5 Mg/3 Ml Vial.neb, 2.5 MG NEB QID for SHORT OF AIR, Ref 0 (Reported) Entered as Reported by: KAT MADRID on 12/05/18429 Last Action: Reviewed on 03/18/19 1007 by POLO PONCE Carvedilol (Carvedilol) 25 Mg Tablet, 25 MG PO BIDWMEALS for CARDIAC, (Reported) hold for SBP < 110 and pulse < 40 Entered as Reported by: KAT MADRID on 12/05/18429 Last Action: Reviewed on 03/18/19 1007 by POLO PONCE Fluticasone Propionate (Flonase Allergy Relief) 9.9 Ml [place].susp, 2 SPRAYS NS DAILY for CONGESTION, (Reported) Entered as Reported by: POLO PONCE on 03/18/19 1012 Last Action: New Order on 03/18/19 1012 by POLO PONCE Guaifenesin (Tussin) 100 Mg/5 Ml Liquid, 5 ML PO QID for cough for 10 Days, #200 Ref 0 (Reported) Entered as Reported by: POLO PONCE on 03/18/19 1012 Last Action: New Order on 03/18/19 1012 by POLO PONCE Lactobacillus Rhamnosus Gg (Culturelle) 1 Each Cap.sprink, 1 CAP PO BID for Kaya rrhea for 7 Days, #14 Prescribed by: SHAWNEE BLANCHARD MD on 03/24/19 1218 Levofloxacin (Levaquin) 500 Mg Tablet, 1 TAB PO DAILY for Pneumonia for 5 Days, #5 Ref 0 Prescribed by: SHAWNEE BLANCHARD MD on 03/24/19 1218 Lisinopril (Lisinopril) 20 Mg Tablet, 20 MG PO DAILY for FOR HYPERTENSION, #30 Ref 0 (Reported) HOLD FOR SBP < 110 Entered as Reported by: KAT MADRID on 12/05/18429 Last Action: Reviewed on 03/18/191006 by POLO PONCE Loxapine Succinate (Loxapine) 10 Mg Capsule, 10 MG PO HS for AGITATION, (R eported) GIVE 3 CAPSULE BY MOUTH AT BEDTIME FOR AGITATION Entered as Reported by: KAT MADRID on 12/05/18429 Last Action: Reviewed on 03/18/191006 by POLO PONCE Pantoprazole Sodium (Protonix) 20 Mg Tablet.dr, 40 MG PO DAILY for GERD, (Reported) Entered as Reported by: KAT MADRID on 12/05/18429 Last Action: Reviewed on 03/18/19 1007 by POLO PONCE Zinc Oxide (Zinc Oxide) 56.7 Gm Oint...g., 56.7 GM TP DAILY for COCCYX, (Reported) Entered as Reported by: POLO PONCE on 03/18/19 1012 Last Action: New Order on 03/18/19 101 by POLO PONCE Ziprasidone Hcl (Geodon) 80 Mg Capsule, 1 CAP PO BID for SCHIZOPHRENIA, #60 Ref 1 (Reported) Entered as Reported by: KAT MADRID on 12/05/18429 Last Action: Reviewed on 03/18/191006 by POLO PONCE Scheduled PRN Loxapine Succinate (Loxapine) 5 Mg Capsule, 5 MG PO PRN Q12HRS PRN for AGITATION, (Reported) Entered as Reported by: KAT MADRID on 12/05/18429 Last Action: Reviewed on 03/18/19 1007 by POLO PONCE Discontinued Medications Ferrous Sulfate (Ferrous Sulfate) 325 Mg Tablet, 1 TAB PO DAILY for ANEMIA, #30 Ref 3 (Reported) Entered as Reported by: KAT MADRID on 12/05/18429 Last Action: Reviewed on 03/18/191006 by SHAWNEE ONEILL MD Mar 24, 2019 12:28
--- NOTE | 2019-03-24 12:43 | NUR ---
SS following up with discharge planning. Discharge orders received for return to [facility], ; fax [phone]. SS phoned and faxed clinical and discharge orders to [facility]. Pt will discharge today and return to [facility]. SS currently awaiting transportation time from [facility]. SS will notify RN once received.
--- NOTE | 2019-03-24 14:11 | NUR ---
SS following up with discharge planning. [facility] notified pt's RN that transport will apple picker pt at 1600. Pt and pt's family notified.
[2019-03-24 15:30] VITALS: BP 153/92
--- NOTE | 2019-03-24 18:27 | NUR ---
Discharge Note: JOSE MOODY [address] Discharge instructions and discharge home medications reviewed with Jah MCGEE of [facility] at 1650 and a copy given to transport personnel. All questions have been answered and understanding verbalized. The following instructions and handouts were given: Prescriptions for levofloxacin, aryan sent with the packet Referral to hospice, patient on DNR. Watch out for worsening of symptoms Wound care as directed Patient discharged to [facility] via stretcher accompanied by transport personnel at 1700. Addendum: 03/24/19 at 1836 by DONNA RUTLEDGE RN Pt's daughter updated of the patient's status and transfer to the facility.
== END 2019-03-24 17:10 | disposition home or self-care (01) | DRG 698 ==
LOC: ER 05:53 → 1 WEST ICU 08:02 → 2 SOUTH 03-19 19:10 → 6 SOUTH 03-20 15:40
PROVIDERS: ADMIT Internal Medicine; ATTEND Internal Medicine
PROC: 5A09457 Assistance with Respiratory Ventilation, 24-96 Consecutive Hours, Continuous Positive Airway Pressure (ICD-10-PCS; principal; 2019-03-18)
PROC: 5A09357 Assistance with Respiratory Ventilation, Less than 24 Consecutive Hours, Continuous Positive Airway Pressure (ICD-10-PCS; 2019-03-21)
DX: T83.518A Infection and inflammatory reaction due to other urinary catheter, initial encounter (principal); A41.9 Sepsis, unspecified organism; L89.94 Pressure ulcer of unspecified site, stage 4; J96.21 Acute and chronic respiratory failure with hypoxia; E43 Unspecified severe protein-calorie malnutrition; G92 Toxic encephalopathy; J96.22 Acute and chronic respiratory failure with hypercapnia; R53.2 Functional quadriplegia; E41 Nutritional marasmus; N39.0 Urinary tract infection, site not specified; E87.3 Alkalosis; J84.9 Interstitial pulmonary disease, unspecified; Z68.1 Body mass index [BMI] 19.9 or less, adult; B96.1 Klebsiella pneumoniae [K. pneumoniae] as the cause of diseases classified elsewhere; B96.89 Other specified bacterial agents as the cause of diseases classified elsewhere; D64.9 Anemia, unspecified; F20.9 Schizophrenia, unspecified; F32.9 Major depressive disorder, single episode, unspecified; F43.10 Post-traumatic stress disorder, unspecified; F60.3 Borderline personality disorder; I11.0 Hypertensive heart disease with heart failure; I50.9 Heart failure, unspecified; I73.9 Peripheral vascular disease, unspecified; J44.9 Chronic obstructive pulmonary disease, unspecified; R13.10 Dysphagia, unspecified; Y84.6 Urinary catheterization as the cause of abnormal reaction of the patient, or of later complication, without mention of misadventure at the time of the procedure; Z66 Do not resuscitate; Z74.01 Bed confinement status; Z83.3 Family history of diabetes mellitus; Z89.612 Acquired absence of left leg above knee; Z88.8 Allergy status to other drugs, medicaments and biological substances
CPT/HCPCS: 36415; 36600; 70450; 71045; 74230; 76770; 80048; 80053; 80061; 80076; 81001; 82805; 82962; 83605; 83690; 83735; 83880; 84443; 84484; 85007; 85025; 85027; 85651; 87040; 87086; 87186; 93005; 93306; 94640; 94660; 94760; 96365; C9113; J0360; J1650; J1956; J2020; J2060; J2270; J2543; J2930; J3490; J7030; J7040; J7620; J7626; 92526; 92610; 92611; 99291-25; G0378